=== PATIENT | male | born 1965 | race Caucasian/White ===

== ENCOUNTER 2018-01-19 03:07 | Outpatient (RCR) | payer BC, MEDICAID, SELFPAY ==
[2018-01-22] MEDS: Normal Saline Flush 10 ML SYR IVP (08:40)
[2018-01-22 08:54] LABS: Abs Immature Grans 0.01 k/cumm (0.0-0.09); Absolute Basophil Count 0.02 k/cumm (0.0-0.2); Absolute Eosinophil Count 0.16 k/cumm (0.0-0.7); Absolute Lymphocyte Count 1.08 k/cumm (1.2-3.4); Absolute Monocyte Count 0.43 k/cumm (0.11-0.7); Absolute Neutrophil Count 3.21 k/cumm (1.2-6.7); Basophils % 0.4; Eosinophils % 3.3; HCT 38.4 % (40.0-50.0); Immature Grans % 0.2; Mean Corp. HGB Concentration 33.9 g/dL (32.0-36.0); Mean Corpuscular Hemoglobin 28.7 pg (27.0-33.0); Mean Corpuscular Volume 84.8 fL (80-95); Monocytes % 8.8; Neutrophils % 65.3; Platelet Count 226 x1000/uL (130-400); RBC 4.53 m/cumm (4.50-6.00); RBC Distribution Width 20.4 % (11.8-14.1); White Blood Cell Count 4.91 k/cumm (4.4-10.8)
[2018-01-22 09:10] LABS: ALT 22 U/L (12-78); AST 15 U/L (15-37); Albumin 3.4 g/dL (3.4-5.0); Alkaline Phosphatase 112 U/L (46-116); Anion Gap 11.1 mmol/L (3-11); BUN 14 mg/dL (7-18); Bilirubin, Total 0.3 mg/dL (0.2-1.0); CO2 26.9 mmol/L (21.0-32.0); CREATININE 0.91 mg/dL (0.70-1.30); Calcium 8.5 mg/dL (8.5-10.1); Chloride 103 mmol/L (98-107); Glucose 114 mg/dL (70-100); Potassium 3.2 mmol/L (3.5-5.1); Sodium 141 mmol/L (136-145); Total Protein 6.7 g/dL (6.4-8.2)
[2018-02-12] MEDS: Normal Saline Flush 10 ML SYR IVP (07:00)
[2018-02-12 07:21] LABS: Abs Immature Grans 0.01 k/cumm (0.0-0.09); Absolute Basophil Count 0.01 k/cumm (0.0-0.2); Absolute Eosinophil Count 0.12 k/cumm (0.0-0.7); Absolute Lymphocyte Count 0.99 k/cumm (1.2-3.4); Absolute Monocyte Count 0.62 k/cumm (0.11-0.7); Absolute Neutrophil Count 3.08 k/cumm (1.2-6.7); Basophils % 0.2; Eosinophils % 2.5; HCT 36.9 % (40.0-50.0); HGB 12.3 g/dL (13.5-17.5); Immature Grans % 0.2; Lymphocytes % 20.5; Mean Corp. HGB Concentration 33.3 g/dL (32.0-36.0); Mean Corpuscular Hemoglobin 29.7 pg (27.0-33.0); Mean Corpuscular Volume 89.1 fL (80-95); Mean Platelet Volume 9.6 fL (8.0-11.0); Monocytes % 12.8; Neutrophils % 63.8; Platelet Count 253 x1000/uL (130-400); RBC 4.14 m/cumm (4.50-6.00); RBC Distribution Width 20.9 % (11.8-14.1); White Blood Cell Count 4.83 k/cumm (4.4-10.8)
[2018-02-12 07:33] LABS: ALT 27 U/L (12-78); AST 19 U/L (15-37); Albumin 3.3 g/dL (3.4-5.0); Alkaline Phosphatase 108 U/L (46-116); Anion Gap 5.3 mmol/L (3-11); BUN 23 mg/dL (7-18); Bilirubin, Total 0.2 mg/dL (0.2-1.0); CO2 26.7 mmol/L (21.0-32.0); CREATININE 0.98 mg/dL (0.70-1.30); Calcium 8.7 mg/dL (8.5-10.1); Chloride 107 mmol/L (98-107); Glucose 101 mg/dL (70-100); Potassium 4.5 mmol/L (3.5-5.1); Sodium 139 mmol/L (136-145)
[2018-02-12 10:20] LABS: T4 8.6 ug/dL (4.5-12.5); TSH 1.15 uIU/mL (0.358-3.74)
== END 2018-02-13 ==
LOC: INF 16:18
PROVIDERS: PCP Internal Medicine; Visit Provider Internal Medicine Medical Oncology
DX: C34.12 Malignant neoplasm of upper lobe, left bronchus or lung (principal); E03.2 Hypothyroidism due to medicaments and other exogenous substances; Z45.2 Encounter for adjustment and management of vascular access device
CPT/HCPCS: 36591; 80053; 84436; 84443; 85025

== ENCOUNTER 2018-03-02 01:15 | Outpatient (RCR) | payer MEDICAID, SELFPAY ==
[2018-03-02] MEDS: Normal Saline Flush 10 ML SYR IVP (07:15)
[2018-03-02 07:34] LABS: Abs Immature Grans 0.01 k/cumm (0.0-0.09); Absolute Basophil Count 0.04 k/cumm (0.0-0.2); Absolute Eosinophil Count 0.14 k/cumm (0.0-0.7); Absolute Lymphocyte Count 0.91 k/cumm (1.2-3.4); Absolute Monocyte Count 0.65 k/cumm (0.11-0.7); Absolute Neutrophil Count 4.97 k/cumm (1.2-6.7); Basophils % 0.6; Eosinophils % 2.1; Immature Grans % 0.1; Lymphocytes % 13.5; Mean Corp. HGB Concentration 33.3 g/dL (32.0-36.0); Mean Corpuscular Volume 90.1 fL (80-95); Mean Platelet Volume 10.2 fL (8.0-11.0); Monocytes % 9.7; Platelet Count 189 x1000/uL (130-400); RBC 4.33 m/cumm (4.50-6.00); RBC Distribution Width 19.9 % (11.8-14.1); White Blood Cell Count 6.72 k/cumm (4.4-10.8)
[2018-03-02 08:02] LABS: ALT 24 U/L (12-78); AST 22 U/L (15-37); Albumin 3.5 g/dL (3.4-5.0); Alkaline Phosphatase 123 U/L (46-116); Anion Gap 7.9 mmol/L (3-11); BUN 17 mg/dL (7-18); Bilirubin, Total 0.3 mg/dL (0.2-1.0); CO2 28.1 mmol/L (21.0-32.0); CREATININE 0.94 mg/dL (0.70-1.30); Calcium 9.1 mg/dL (8.5-10.1); Chloride 102 mmol/L (98-107); Glucose 96 mg/dL (70-100); Potassium 4.3 mmol/L (3.5-5.1); Sodium 138 mmol/L (136-145); TSH 1.82 uIU/mL (0.358-3.74); Total Protein 7.2 g/dL (6.4-8.2)
[2018-03-02 08:17] LABS: T4 9.8 ug/dL (4.5-12.5)
== END 2018-03-15 23:59 | disposition home or self-care (01) ==
LOC: INF 01:15
PROVIDERS: Referring Provider Internal Medicine Medical Oncology; Visit Provider Internal Medicine Medical Oncology
DX: C34.12 Malignant neoplasm of upper lobe, left bronchus or lung (principal); E03.2 Hypothyroidism due to medicaments and other exogenous substances; Z45.2 Encounter for adjustment and management of vascular access device
CPT/HCPCS: 36591; 80053; 84436; 84443; 85025

== ENCOUNTER 2018-04-13 01:25 | Outpatient (RCR) | payer MEDICAID, SELFPAY ==
[2018-03-30] MEDS: Normal Saline Flush 10 ML SYR IVP (07:25)
[2018-03-30 07:48] LABS: Abs Immature Grans 0.03 k/cumm (0.0-0.09); Absolute Basophil Count 0.04 k/cumm (0.0-0.2); Absolute Eosinophil Count 0.09 k/cumm (0.0-0.7); Absolute Lymphocyte Count 0.89 k/cumm (1.2-3.4); Absolute Monocyte Count 0.71 k/cumm (0.11-0.7); Basophils % 0.7; Eosinophils % 1.6; HCT 36.6 % (40.0-50.0); HGB 12.1 g/dL (13.5-17.5); Immature Grans % 0.5; Lymphocytes % 15.5; Mean Corp. HGB Concentration 33.1 g/dL (32.0-36.0); Mean Corpuscular Hemoglobin 32.5 pg (27.0-33.0); Mean Corpuscular Volume 98.4 fL (80-95); Monocytes % 12.3; Neutrophils % 69.4; Platelet Count 173 x1000/uL (130-400); RBC 3.72 m/cumm (4.50-6.00); RBC Distribution Width 19.5 % (11.8-14.1); White Blood Cell Count 5.76 k/cumm (4.4-10.8)
[2018-03-30 08:08] LABS: ALT 30 U/L (12-78); AST 26 U/L (15-37); Albumin 3.3 g/dL (3.4-5.0); Alkaline Phosphatase 105 U/L (46-116); Anion Gap 7.3 mmol/L (3-11); BUN 19 mg/dL (7-18); Bilirubin, Total 0.2 mg/dL (0.2-1.0); CO2 28.7 mmol/L (21.0-32.0); CREATININE 1.12 mg/dL (0.70-1.30); Calcium 8.4 mg/dL (8.5-10.1); Chloride 106 mmol/L (98-107); Glucose 97 mg/dL (70-100); Potassium 4.4 mmol/L (3.5-5.1); Sodium 142 mmol/L (136-145); T4 10.6 ug/dL (4.5-12.5); TSH 3.96 uIU/mL (0.358-3.74); Total Protein 6.6 g/dL (6.4-8.2)
[2018-04-13] MEDS: Normal Saline Flush 10 ML SYR IVP (07:55)
[2018-04-13 08:18] LABS: Absolute Eosinophil Count 0.12 k/cumm (0.0-0.7); Absolute Lymphocyte Count 0.96 k/cumm (1.2-3.4); Absolute Monocyte Count 0.47 k/cumm (0.11-0.7); Absolute Neutrophil Count 1.97 k/cumm (1.2-6.7); Eosinophils % 3.4; HCT 34.1 % (40.0-50.0); HGB 11.3 g/dL (13.5-17.5); Lymphocytes % 27.3; Mean Corp. HGB Concentration 33.1 g/dL (32.0-36.0); Mean Corpuscular Hemoglobin 33.2 pg (27.0-33.0); Mean Corpuscular Volume 100.3 fL (80-95); Mean Platelet Volume 10.8 fL (8.0-11.0); Monocytes % 13.4; Neutrophils % 55.9; White Blood Cell Count 3.52 k/cumm (4.4-10.8)
[2018-04-13 08:34] LABS: Anisocytosis 2+; Diff Comment Diff Reviewed; Platelet Count 81 x1000/uL (130-400)
[2018-04-13 08:40] LABS: ALT 47 U/L (12-78); AST 28 U/L (15-37); Albumin 3.3 g/dL (3.4-5.0); Alkaline Phosphatase 110 U/L (46-116); Anion Gap 7.7 mmol/L (3-11); BUN 17 mg/dL (7-18); Bilirubin, Total 0.2 mg/dL (0.2-1.0); CO2 29.3 mmol/L (21.0-32.0); CREATININE 0.97 mg/dL (0.70-1.30); Calcium 8.8 mg/dL (8.5-10.1); Chloride 105 mmol/L (98-107); Glucose 98 mg/dL (70-100); Potassium 4.2 mmol/L (3.5-5.1); Sodium 142 mmol/L (136-145); T4 9.3 ug/dL (4.5-12.5); TSH 2.81 uIU/mL (0.358-3.74); Total Protein 6.8 g/dL (6.4-8.2)
== END 2018-04-15 23:59 | disposition home or self-care (01) ==
LOC: INF 01:25
PROVIDERS: PCP Internal Medicine; Visit Provider Internal Medicine Medical Oncology
DX: C34.12 Malignant neoplasm of upper lobe, left bronchus or lung (principal); E03.2 Hypothyroidism due to medicaments and other exogenous substances; Z45.2 Encounter for adjustment and management of vascular access device
CPT/HCPCS: 36591; 80053; 84436; 84443; 85025

== ENCOUNTER 2018-05-11 01:37 | Outpatient (RCR) | payer MEDICAID, SELFPAY ==
[2018-05-11] MEDS: Normal Saline Flush 10 ML SYR IVP (08:05)
[2018-05-11 08:27] LABS: Abs Immature Grans 0.02 k/cumm (0.0-0.09); Absolute Basophil Count 0.05 k/cumm (0.0-0.2); Absolute Eosinophil Count 0.12 k/cumm (0.0-0.7); Absolute Lymphocyte Count 1.06 k/cumm (1.2-3.4); Absolute Neutrophil Count 4.17 k/cumm (1.2-6.7); Basophils % 0.8; HCT 37.8 % (40.0-50.0); HGB 13.2 g/dL (13.5-17.5); Immature Grans % 0.3; Lymphocytes % 17.6; Mean Corp. HGB Concentration 34.9 g/dL (32.0-36.0); Mean Corpuscular Hemoglobin 35.1 pg (27.0-33.0); Mean Corpuscular Volume 100.5 fL (80-95); Mean Platelet Volume 10.8 fL (8.0-11.0); Neutrophils % 69.3; Platelet Count 170 x1000/uL (130-400); RBC 3.76 m/cumm (4.50-6.00); RBC Distribution Width 14.9 % (11.8-14.1); White Blood Cell Count 6.02 k/cumm (4.4-10.8)
[2018-05-11 08:49] LABS: ALT 75 U/L (12-78); AST 37 U/L (15-37); Albumin 3.7 g/dL (3.4-5.0); Alkaline Phosphatase 122 U/L (46-116); Anion Gap 9.1 mmol/L (3-11); BUN 24 mg/dL (7-18); Bilirubin, Total 0.3 mg/dL (0.2-1.0); CO2 26.9 mmol/L (21.0-32.0); CREATININE 1.13 mg/dL (0.70-1.30); Calcium 9.3 mg/dL (8.5-10.1); Chloride 104 mmol/L (98-107); Glucose 94 mg/dL (70-100); Potassium 4.6 mmol/L (3.5-5.1); Sodium 140 mmol/L (136-145); TSH 2.63 uIU/mL (0.358-3.74); Total Protein 7.4 g/dL (6.4-8.2)
[2018-05-11 09:05] LABS: T4 9.7 ug/dL (4.5-12.5)
== END 2018-05-15 23:59 | disposition home or self-care (01) ==
LOC: INF 01:37
PROVIDERS: PCP Internal Medicine; Visit Provider Internal Medicine Medical Oncology
DX: C34.12 Malignant neoplasm of upper lobe, left bronchus or lung (principal); E03.2 Hypothyroidism due to medicaments and other exogenous substances; Z45.2 Encounter for adjustment and management of vascular access device
CPT/HCPCS: 36591; 80053; 84436; 84443; 85025

== ENCOUNTER 2018-07-13 01:14 | Outpatient (RCR) | payer MEDICAID, SELFPAY ==
[2018-06-22] MEDS: Normal Saline Flush 10 ML SYR IVP (07:41)
[2018-06-22 07:50] LABS: Abs Immature Grans 0.02 k/cumm (0.0-0.09); Absolute Basophil Count 0.04 k/cumm (0.0-0.2); Absolute Eosinophil Count 0.14 k/cumm (0.0-0.7); Absolute Lymphocyte Count 0.84 k/cumm (1.2-3.4); Absolute Monocyte Count 0.78 k/cumm (0.11-0.7); Basophils % 0.5; Eosinophils % 1.8; HCT 37.6 % (40.0-50.0); HGB 12.5 g/dL (13.5-17.5); Immature Grans % 0.3; Lymphocytes % 10.7; Mean Corp. HGB Concentration 33.2 g/dL (32.0-36.0); Mean Corpuscular Hemoglobin 33.7 pg (27.0-33.0); Mean Corpuscular Volume 101.3 fL (80-95); Mean Platelet Volume 11.1 fL (8.0-11.0); Neutrophils % 76.7; Platelet Count 171 x1000/uL (130-400); RBC 3.71 m/cumm (4.50-6.00); RBC Distribution Width 14.1 % (11.8-14.1); White Blood Cell Count 7.82 k/cumm (4.4-10.8)
[2018-06-22 08:05] LABS: ALT 40 U/L (12-78); AST 28 U/L (15-37); Albumin 3.6 g/dL (3.4-5.0); Alkaline Phosphatase 145 U/L (46-116); Anion Gap 10.2 mmol/L (3-11); BUN 22 mg/dL (7-18); Bilirubin, Total 0.4 mg/dL (0.2-1.0); CO2 25.8 mmol/L (21.0-32.0); CREATININE 1.41 mg/dL (0.70-1.30); Calcium 9.2 mg/dL (8.5-10.1); Chloride 105 mmol/L (98-107); Estimated GFR 52.19 (mL/min/1.73m2); Glucose 110 mg/dL (70-100); Potassium 4.2 mmol/L (3.5-5.1); Sodium 141 mmol/L (136-145); Total Protein 7.6 g/dL (6.4-8.2)
[2018-07-13] MEDS: Normal Saline Flush 10 ML SYR IVP (10:32)
[2018-07-13 10:50] LABS: Abs Immature Grans 0.01 k/cumm (0.0-0.09); Absolute Basophil Count 0.03 k/cumm (0.0-0.2); Absolute Eosinophil Count 0.13 k/cumm (0.0-0.7); Absolute Lymphocyte Count 1.21 k/cumm (1.2-3.4); Absolute Neutrophil Count 4.59 k/cumm (1.2-6.7); Basophils % 0.5; HCT 39.1 % (40.0-50.0); Immature Grans % 0.2; Mean Corp. HGB Concentration 33.2 g/dL (32.0-36.0); Mean Corpuscular Hemoglobin 32.8 pg (27.0-33.0); Mean Corpuscular Volume 98.7 fL (80-95); Mean Platelet Volume 10.9 fL (8.0-11.0); Monocytes % 6.3; Platelet Count 174 x1000/uL (130-400); RBC 3.96 m/cumm (4.50-6.00); RBC Distribution Width 12.8 % (11.8-14.1); White Blood Cell Count 6.37 k/cumm (4.4-10.8)
[2018-07-13 10:59] LABS: ALT 18 U/L (12-78); AST 20 U/L (15-37); Albumin 3.6 g/dL (3.4-5.0); Alkaline Phosphatase 139 U/L (46-116); Anion Gap 12.6 mmol/L (3-11); BUN 24 mg/dL (7-18); Bilirubin, Total 0.3 mg/dL (0.2-1.0); CO2 25.4 mmol/L (21.0-32.0); CREATININE 1.43 mg/dL (0.70-1.30); Calcium 9.2 mg/dL (8.5-10.1); Chloride 102 mmol/L (98-107); Estimated GFR 51.34 (mL/min/1.73m2); Glucose 164 mg/dL (70-100); Potassium 3.7 mmol/L (3.5-5.1); Sodium 140 mmol/L (136-145); Total Protein 7.6 g/dL (6.4-8.2)
[2018-07-13 12:39] LABS: T4 10.2 ug/dL (4.5-12.5); TSH 1.53 uIU/mL (0.358-3.74)
== END 2018-07-16 23:59 | disposition home or self-care (01) ==
LOC: INF 01:14
PROVIDERS: PCP Internal Medicine; Visit Provider Nurse Practitioner Adult Health
DX: C34.12 Malignant neoplasm of upper lobe, left bronchus or lung (principal); Z45.2 Encounter for adjustment and management of vascular access device
CPT/HCPCS: 36591; 80053; 84436; 84443; 85025

== ENCOUNTER 2018-08-03 01:31 | Outpatient (RCR) | payer MEDICAID, SELFPAY ==
[2018-08-03] MEDS: Normal Saline Flush 10 ML SYR IVP (08:13)
[2018-08-03 08:31] LABS: Abs Immature Grans 0.02 k/cumm (0.0-0.09); Absolute Basophil Count 0.02 k/cumm (0.0-0.2); Absolute Eosinophil Count 0.11 k/cumm (0.0-0.7); Absolute Lymphocyte Count 1.01 k/cumm (1.2-3.4); Absolute Monocyte Count 0.47 k/cumm (0.11-0.7); Absolute Neutrophil Count 4.62 k/cumm (1.2-6.7); Basophils % 0.3; Eosinophils % 1.8; HCT 40.6 % (40.0-50.0); HGB 13.3 g/dL (13.5-17.5); Immature Grans % 0.3; Lymphocytes % 16.2; Mean Corp. HGB Concentration 32.8 g/dL (32.0-36.0); Mean Corpuscular Volume 97.6 fL (80-95); Monocytes % 7.5; Neutrophils % 73.9; Platelet Count 163 x1000/uL (130-400); RBC 4.16 m/cumm (4.50-6.00); RBC Distribution Width 12.7 % (11.8-14.1); White Blood Cell Count 6.25 k/cumm (4.4-10.8)
[2018-08-03 08:51] LABS: ALT 24 U/L (12-78); AST 22 U/L (15-37); Albumin 3.6 g/dL (3.4-5.0); Alkaline Phosphatase 144 U/L (46-116); Anion Gap 9.2 mmol/L (3-11); BUN 24 mg/dL (7-18); Bilirubin, Total 0.3 mg/dL (0.2-1.0); CO2 27.8 mmol/L (21.0-32.0); CREATININE 1.35 mg/dL (0.70-1.30); Calcium 9.5 mg/dL (8.5-10.1); Chloride 102 mmol/L (98-107); Estimated GFR 54.87 (mL/min/1.73m2); Glucose 102 mg/dL (70-100); Potassium 4.6 mmol/L (3.5-5.1); Sodium 139 mmol/L (136-145); T4 10.1 ug/dL (4.5-12.5); TSH 1.41 uIU/mL (0.358-3.74); Total Protein 7.9 g/dL (6.4-8.2)
== END 2018-08-13 23:59 | disposition home or self-care (01) ==
LOC: INF 01:31
PROVIDERS: Nurse Practitioner Adult Health; PCP Internal Medicine; Visit Provider Internal Medicine Hematology & Oncology
DX: C34.12 Malignant neoplasm of upper lobe, left bronchus or lung (principal); E03.2 Hypothyroidism due to medicaments and other exogenous substances; Z45.2 Encounter for adjustment and management of vascular access device
CPT/HCPCS: 36591; 80053; 84436; 84443; 85025

== ENCOUNTER 2018-08-20 02:03 | Outpatient (RCR) | payer MEDICAID, SELFPAY | END 2018-09-13 23:59 | disposition home or self-care (01) | LOC: INF 02:03 | PROVIDERS: PCP Internal Medicine; Visit Provider Nurse Practitioner Adult Health | DX: R69 Illness, unspecified (principal) ==

== ENCOUNTER 2018-10-13 07:34 | Outpatient (RCR) | payer MEDICAID, SELFPAY ==
[2018-10-13] MEDS: Normal Saline Flush 10 ML SYR IVP (07:35)
[2018-10-13 07:58] LABS: Abs Immature Grans 0.02 k/cumm (0.0-0.09); Absolute Basophil Count 0.06 k/cumm (0.0-0.2); Absolute Eosinophil Count 0.04 k/cumm (0.0-0.7); Basophils % 0.9; Eosinophils % 0.6; HCT 36.8 % (40.0-50.0); HGB 11.9 g/dL (13.5-17.5); Immature Grans % 0.3; Lymphocytes % 15.7; Mean Corp. HGB Concentration 32.3 g/dL (32.0-36.0); Mean Corpuscular Hemoglobin 29.2 pg (27.0-33.0); Mean Corpuscular Volume 90.4 fL (80-95); Mean Platelet Volume 10.3 fL (8.0-11.0); Monocytes % 8.5; Platelet Count 248 x1000/uL (130-400); RBC 4.07 m/cumm (4.50-6.00); RBC Distribution Width 13.5 % (11.8-14.1); White Blood Cell Count 7.02 k/cumm (4.4-10.8)
[2018-10-13 08:18] LABS: ALT 15 U/L (12-78); AST 12 U/L (15-37); Albumin 2.9 g/dL (3.4-5.0); Alkaline Phosphatase 115 U/L (46-116); Anion Gap 9.3 mmol/L (3-11); BUN 23 mg/dL (7-18); Bilirubin, Total 0.4 mg/dL (0.2-1.0); CO2 27.7 mmol/L (21.0-32.0); CREATININE 1.24 mg/dL (0.70-1.30); Calcium 9.1 mg/dL (8.5-10.1); Chloride 99 mmol/L (98-107); Glucose 113 mg/dL (70-100); Potassium 4.2 mmol/L (3.5-5.1); Sodium 136 mmol/L (136-145); T4 10.2 ug/dL (4.5-12.5); TSH 1.77 uIU/mL (0.358-3.74); Total Protein 7.5 g/dL (6.4-8.2)
== END 2018-10-13 23:59 | disposition home or self-care (01) ==
LOC: INF 07:34
PROVIDERS: PCP Internal Medicine; Visit Provider Nurse Practitioner Adult Health
DX: C34.12 Malignant neoplasm of upper lobe, left bronchus or lung (principal); E03.2 Hypothyroidism due to medicaments and other exogenous substances; Z45.2 Encounter for adjustment and management of vascular access device
CPT/HCPCS: 36591; 80053; 84436; 84443; 85025

== ENCOUNTER 2018-11-26 01:57 | Outpatient (RCR) | payer MEDICAID, SELFPAY ==
[2018-11-26] MEDS: Normal Saline Flush 10 ML SYR IVP (07:25)
[2018-11-26 07:28] LABS: Abs Immature Grans 0.03 k/cumm (0.0-0.09); Absolute Basophil Count 0.04 k/cumm (0.0-0.2); Absolute Eosinophil Count 0.05 k/cumm (0.0-0.7); Absolute Lymphocyte Count 1.24 k/cumm (1.2-3.4); Absolute Monocyte Count 0.54 k/cumm (0.11-0.7); Absolute Neutrophil Count 5.39 k/cumm (1.2-6.7); Basophils % 0.5; Eosinophils % 0.7; HCT 37.7 % (40.0-50.0); HGB 12.3 g/dL (13.5-17.5); Immature Grans % 0.4; Mean Corp. HGB Concentration 32.6 g/dL (32.0-36.0); Mean Corpuscular Hemoglobin 29.8 pg (27.0-33.0); Mean Corpuscular Volume 91.3 fL (80-95); Mean Platelet Volume 9.9 fL (8.0-11.0); Monocytes % 7.4; Platelet Count 202 x1000/uL (130-400); RBC 4.13 m/cumm (4.50-6.00); RBC Distribution Width 15.8 % (11.8-14.1); White Blood Cell Count 7.29 k/cumm (4.4-10.8)
[2018-11-26 07:42] LABS: ALT 17 U/L (12-78); AST 12 U/L (15-37); Albumin 3.2 g/dL (3.4-5.0); Alkaline Phosphatase 132 U/L (46-116); Anion Gap 9.8 mmol/L (3-11); BUN 17 mg/dL (7-18); Bilirubin, Total 0.3 mg/dL (0.2-1.0); CO2 27.2 mmol/L (21.0-32.0); CREATININE 1.25 mg/dL (0.70-1.30); Chloride 104 mmol/L (98-107); Estimated GFR 59.97 (mL/min/1.73m2); Glucose 109 mg/dL (70-100); Potassium 3.8 mmol/L (3.5-5.1); Sodium 141 mmol/L (136-145); Total Protein 6.9 g/dL (6.4-8.2)
== END 2018-12-13 23:59 | disposition home or self-care (01) ==
LOC: INF 01:57
PROVIDERS: PCP Internal Medicine; Visit Provider Nurse Practitioner Adult Health
DX: C34.12 Malignant neoplasm of upper lobe, left bronchus or lung (principal); E03.2 Hypothyroidism due to medicaments and other exogenous substances; Z45.2 Encounter for adjustment and management of vascular access device
CPT/HCPCS: 36591; 80053; 85025

== ENCOUNTER 2018-12-24 01:20 | Outpatient (RCR) | payer MEDICAID, SELFPAY | END 2019-01-13 23:59 | disposition home or self-care (01) | LOC: INF 01:20 | PROVIDERS: PCP Internal Medicine; Visit Provider Nurse Practitioner Adult Health | DX: R69 Illness, unspecified (principal) ==

== ENCOUNTER 2019-03-01 01:13 | Outpatient (RCR) | payer MEDICAID, SELFPAY ==
[2019-03-01 08:19] LABS: Abs Immature Grans 0.01 k/cumm (0.0-0.09); Absolute Basophil Count 0.04 k/cumm (0.0-0.2); Absolute Eosinophil Count 0.09 k/cumm (0.0-0.7); Absolute Lymphocyte Count 1.04 k/cumm (1.2-3.4); Absolute Monocyte Count 0.41 k/cumm (0.11-0.7); Absolute Neutrophil Count 3.91 k/cumm (1.2-6.7); Basophils % 0.7; Eosinophils % 1.6; HCT 39.7 % (40.0-50.0); HGB 13.1 g/dL (13.5-17.5); Immature Grans % 0.2; Lymphocytes % 18.9; Mean Corpuscular Hemoglobin 29.1 pg (27.0-33.0); Mean Corpuscular Volume 88.2 fL (80-95); Mean Platelet Volume 10.2 fL (8.0-11.0); Monocytes % 7.5; Neutrophils % 71.1; Platelet Count 208 x1000/uL (130-400); RBC Distribution Width 17.2 % (11.8-14.1)
[2019-03-01 08:37] LABS: ALT 17 U/L (16-63); AST 11 U/L (15-37); Albumin 3.6 g/dL (3.4-5.0); Alkaline Phosphatase 96 U/L (46-116); Anion Gap 10.2 mmol/L (3-11); BUN 24 mg/dL (7-18); Bilirubin, Total 0.3 mg/dL (0.2-1.0); CO2 24.8 mmol/L (21.0-32.0); CREATININE 1.19 mg/dL (0.70-1.30); Calcium 8.7 mg/dL (8.5-10.1); Chloride 106 mmol/L (98-107); Glucose 96 mg/dL (70-100); LDH 110 U/L (85-227); Potassium 4.2 mmol/L (3.5-5.1); Sodium 141 mmol/L (136-145); Total Protein 7.1 g/dL (6.4-8.2)
[2019-03-01] MEDS: Normal Saline Flush 10 ML SYR 30 ML IVP (11:26)
== END 2019-03-15 23:59 | disposition home or self-care (01) ==
LOC: INF 01:13
PROVIDERS: PCP Internal Medicine; Visit Provider Internal Medicine Hematology & Oncology
DX: C34.90 Malignant neoplasm of unspecified part of unspecified bronchus or lung (principal); Z45.2 Encounter for adjustment and management of vascular access device
CPT/HCPCS: 36591; 80053; 83615; 85025

== ENCOUNTER 2019-04-12 01:59 | Outpatient (RCR) | payer MEDICAID, SELFPAY ==
[2019-03-29] MEDS: Normal Saline Flush 10 ML SYR IVP (07:15)
[2019-03-29 07:29] LABS: Abs Immature Grans 0.06 k/cumm (0.0-0.09); Absolute Basophil Count 0.02 k/cumm (0.0-0.2); Absolute Eosinophil Count 0.07 k/cumm (0.0-0.7); Absolute Lymphocyte Count 1.41 k/cumm (1.2-3.4); Absolute Monocyte Count 0.68 k/cumm (0.11-0.7); Absolute Neutrophil Count 8.56 k/cumm (1.2-6.7); Basophils % 0.2; Eosinophils % 0.6; HCT 37.3 % (40.0-50.0); HGB 12.3 g/dL (13.5-17.5); Immature Grans % 0.6; Lymphocytes % 13.1; Mean Corpuscular Hemoglobin 29.7 pg (27.0-33.0); Mean Corpuscular Volume 90.1 fL (80-95); Mean Platelet Volume 10.6 fL (8.0-11.0); Monocytes % 6.3; Neutrophils % 79.2; Platelet Count 220 x1000/uL (130-400); RBC 4.14 m/cumm (4.50-6.00); RBC Distribution Width 18.1 % (11.8-14.1)
[2019-03-29 07:43] LABS: ALT 17 U/L (16-63); AST 9 U/L (15-37); Albumin 3.4 g/dL (3.4-5.0); Alkaline Phosphatase 91 U/L (46-116); Anion Gap 10.1 mmol/L (3-11); BUN 29 mg/dL (7-18); Bilirubin, Total 0.2 mg/dL (0.2-1.0); CO2 25.9 mmol/L (21.0-32.0); CREATININE 1.21 mg/dL (0.70-1.30); Calcium 8.4 mg/dL (8.5-10.1); Chloride 104 mmol/L (98-107); Glucose 107 mg/dL (70-100); LDH 112 U/L (85-227); Potassium 4.2 mmol/L (3.5-5.1); Sodium 140 mmol/L (136-145); Total Protein 6.7 g/dL (6.4-8.2)
[2019-04-12] MEDS: Normal Saline Flush 10 ML SYR IVP (08:26)
[2019-04-12 08:44] LABS: Abs Immature Grans 0.01 k/cumm (0.0-0.09); Absolute Basophil Count 0.05 k/cumm (0.0-0.2); Absolute Eosinophil Count 0.07 k/cumm (0.0-0.7); Absolute Lymphocyte Count 0.96 k/cumm (1.2-3.4); Absolute Monocyte Count 0.46 k/cumm (0.11-0.7); Absolute Neutrophil Count 3.74 k/cumm (1.2-6.7); Basophils % 0.9; Eosinophils % 1.3; HCT 37.9 % (40.0-50.0); HGB 12.4 g/dL (13.5-17.5); Immature Grans % 0.2; Lymphocytes % 18.1; Mean Corp. HGB Concentration 32.7 g/dL (32.0-36.0); Mean Corpuscular Hemoglobin 29.9 pg (27.0-33.0); Mean Corpuscular Volume 91.3 fL (80-95); Mean Platelet Volume 10.4 fL (8.0-11.0); Monocytes % 8.7; Neutrophils % 70.8; Platelet Count 200 x1000/uL (130-400); RBC 4.15 m/cumm (4.50-6.00); White Blood Cell Count 5.29 k/cumm (4.4-10.8)
[2019-04-12 09:01] LABS: ALT 26 U/L (16-63); AST 16 U/L (15-37); Albumin 3.3 g/dL (3.4-5.0); Alkaline Phosphatase 104 U/L (46-116); Anion Gap 7.5 mmol/L (3-11); BUN 13 mg/dL (7-18); Bilirubin, Total 0.2 mg/dL (0.2-1.0); CO2 27.5 mmol/L (21.0-32.0); CREATININE 1.05 mg/dL (0.70-1.30); Calcium 8.5 mg/dL (8.5-10.1); Chloride 107 mmol/L (98-107); Glucose 102 mg/dL (70-100); LDH 130 U/L (85-227); Potassium 4.1 mmol/L (3.5-5.1); Sodium 142 mmol/L (136-145); Total Protein 6.7 g/dL (6.4-8.2)
== END 2019-04-15 23:59 | disposition home or self-care (01) ==
LOC: INF 01:59
PROVIDERS: PCP Internal Medicine; Visit Provider Internal Medicine Hematology & Oncology
DX: C34.90 Malignant neoplasm of unspecified part of unspecified bronchus or lung (principal); Z45.2 Encounter for adjustment and management of vascular access device
CPT/HCPCS: 36591; 80053; 83615; 85025

== ENCOUNTER 2019-05-10 02:50 | Outpatient (RCR) | payer MEDICAID, SELFPAY ==
[2019-04-20] MEDS: Normal Saline Flush 10 ML SYR IVP (07:20)
[2019-04-20 07:47] LABS: Abs Immature Grans 0.11 k/cumm (0.0-0.09); Absolute Basophil Count 0.03 k/cumm (0.0-0.2); Absolute Eosinophil Count 0.08 k/cumm (0.0-0.7); Absolute Lymphocyte Count 1.02 k/cumm (1.2-3.4); Absolute Monocyte Count 0.57 k/cumm (0.11-0.7); Absolute Neutrophil Count 5.96 k/cumm (1.2-6.7); Basophils % 0.4; HCT 37.9 % (40.0-50.0); HGB 12.5 g/dL (13.5-17.5); Immature Grans % 1.4; Lymphocytes % 13.1; Mean Corpuscular Hemoglobin 30.3 pg (27.0-33.0); Mean Corpuscular Volume 91.8 fL (80-95); Mean Platelet Volume 10.6 fL (8.0-11.0); Monocytes % 7.3; Neutrophils % 76.8; Platelet Count 230 x1000/uL (130-400); RBC 4.13 m/cumm (4.50-6.00); RBC Distribution Width 18.7 % (11.8-14.1); White Blood Cell Count 7.77 k/cumm (4.4-10.8)
[2019-04-20 08:06] LABS: ALT 28 U/L (16-63); AST 17 U/L (15-37); Albumin 3.2 g/dL (3.4-5.0); Alkaline Phosphatase 96 U/L (46-116); Anion Gap 7.1 mmol/L (3-11); BUN 21 mg/dL (7-18); Bilirubin, Total 0.4 mg/dL (0.2-1.0); CO2 27.9 mmol/L (21.0-32.0); CREATININE 0.94 mg/dL (0.70-1.30); Calcium 8.5 mg/dL (8.5-10.1); Chloride 105 mmol/L (98-107); Glucose 104 mg/dL (70-100); LDH 143 U/L (85-227); Potassium 4.3 mmol/L (3.5-5.1); Sodium 140 mmol/L (136-145); Total Protein 6.4 g/dL (6.4-8.2)
[2019-05-03 08:42] LABS: Abs Immature Grans 0.01 k/cumm (0.0-0.09); Absolute Basophil Count 0.03 k/cumm (0.0-0.2); Absolute Eosinophil Count 0.05 k/cumm (0.0-0.7); Absolute Lymphocyte Count 1.03 k/cumm (1.2-3.4); Absolute Monocyte Count 0.42 k/cumm (0.11-0.7); Basophils % 0.5; Eosinophils % 0.9; HCT 39.5 % (40.0-50.0); HGB 12.9 g/dL (13.5-17.5); Immature Grans % 0.2; Lymphocytes % 17.9; Mean Corp. HGB Concentration 32.7 g/dL (32.0-36.0); Mean Corpuscular Hemoglobin 30.2 pg (27.0-33.0); Mean Corpuscular Volume 92.5 fL (80-95); Mean Platelet Volume 10.1 fL (8.0-11.0); Monocytes % 7.3; Neutrophils % 73.2; Platelet Count 208 x1000/uL (130-400); RBC 4.27 m/cumm (4.50-6.00); RBC Distribution Width 16.6 % (11.8-14.1); White Blood Cell Count 5.74 k/cumm (4.4-10.8)
[2019-05-03] MEDS: Normal Saline Flush 10 ML SYR IVP (08:46)
[2019-05-03 08:53] LABS: ALT 24 U/L (16-63); AST 15 U/L (15-37); Albumin 3.5 g/dL (3.4-5.0); Alkaline Phosphatase 109 U/L (46-116); Anion Gap 4.9 mmol/L (3-11); BUN 18 mg/dL (7-18); Bilirubin, Total 0.3 mg/dL (0.2-1.0); CO2 29.1 mmol/L (21.0-32.0); CREATININE 1.07 mg/dL (0.70-1.30); Calcium 8.7 mg/dL (8.5-10.1); Chloride 106 mmol/L (98-107); Glucose 93 mg/dL (70-100); LDH 125 U/L (85-227); Sodium 140 mmol/L (136-145); Total Protein 6.8 g/dL (6.4-8.2)
[2019-05-10] MEDS: Normal Saline Flush 10 ML SYR IVP (08:30)
[2019-05-10 08:48] LABS: Abs Immature Grans 0.03 k/cumm (0.0-0.09); Absolute Basophil Count 0.03 k/cumm (0.0-0.2); Absolute Eosinophil Count 0.07 k/cumm (0.0-0.7); Absolute Lymphocyte Count 0.79 k/cumm (1.2-3.4); Absolute Monocyte Count 0.42 k/cumm (0.11-0.7); Absolute Neutrophil Count 3.94 k/cumm (1.2-6.7); Basophils % 0.6; Eosinophils % 1.3; HCT 38.5 % (40.0-50.0); HGB 12.5 g/dL (13.5-17.5); Immature Grans % 0.6; Mean Corp. HGB Concentration 32.5 g/dL (32.0-36.0); Mean Corpuscular Hemoglobin 30.3 pg (27.0-33.0); Mean Corpuscular Volume 93.4 fL (80-95); Mean Platelet Volume 10.6 fL (8.0-11.0); Neutrophils % 74.5; Platelet Count 214 x1000/uL (130-400); RBC 4.12 m/cumm (4.50-6.00); RBC Distribution Width 16.4 % (11.8-14.1); White Blood Cell Count 5.28 k/cumm (4.4-10.8)
[2019-05-10 09:03] LABS: ALT 18 U/L (16-63); AST 17 U/L (15-37); Albumin 3.4 g/dL (3.4-5.0); Alkaline Phosphatase 100 U/L (46-116); Anion Gap 10.4 mmol/L (3-11); BUN 17 mg/dL (7-18); Bilirubin, Total 0.3 mg/dL (0.2-1.0); CO2 25.6 mmol/L (21.0-32.0); Calcium 8.8 mg/dL (8.5-10.1); Chloride 103 mmol/L (98-107); Glucose 89 mg/dL (74-106); Potassium 4.3 mmol/L (3.5-5.1); Sodium 139 mmol/L (136-145); Total Protein 6.7 g/dL (6.4-8.2)
== END 2019-05-15 23:59 | disposition home or self-care (01) ==
LOC: INF 02:50
PROVIDERS: PCP Internal Medicine; Visit Provider Internal Medicine Hematology & Oncology
DX: C34.90 Malignant neoplasm of unspecified part of unspecified bronchus or lung (principal); Z45.2 Encounter for adjustment and management of vascular access device
CPT/HCPCS: 36591; 80053; 83615; 85025

== ENCOUNTER 2019-06-14 01:07 | Outpatient (RCR) | payer MEDICAID, SELFPAY ==
[2019-05-24 09:32] LABS: Abs Immature Grans 0.01 k/cumm (0.0-0.09); Absolute Basophil Count 0.04 k/cumm (0.0-0.2); Absolute Eosinophil Count 0.04 k/cumm (0.0-0.7); Absolute Lymphocyte Count 0.93 k/cumm (1.2-3.4); Absolute Monocyte Count 0.73 k/cumm (0.11-0.7); Basophils % 0.6; Eosinophils % 0.6; HCT 38.1 % (40.0-50.0); HGB 12.4 g/dL (13.5-17.5); Immature Grans % 0.1; Lymphocytes % 13.6; Mean Corp. HGB Concentration 32.5 g/dL (32.0-36.0); Mean Corpuscular Volume 95.3 fL (80-95); Mean Platelet Volume 10.2 fL (8.0-11.0); Monocytes % 10.7; Neutrophils % 74.4; Platelet Count 177 x1000/uL (130-400); RBC Distribution Width 16.4 % (11.8-14.1); White Blood Cell Count 6.85 k/cumm (4.4-10.8)
[2019-05-24] MEDS: Normal Saline Flush 10 ML SYR IVP (09:49)
[2019-05-24 10:21] LABS: ALT 16 U/L (16-63); AST 13 U/L (15-37); Albumin 3.3 g/dL (3.4-5.0); Alkaline Phosphatase 89 U/L (46-116); Anion Gap 7.6 mmol/L (3-11); BUN 21 mg/dL (7-18); Bilirubin, Total 0.2 mg/dL (0.2-1.0); CO2 27.4 mmol/L (21.0-32.0); CREATININE 1.08 mg/dL (0.70-1.30); Calcium 8.5 mg/dL (8.5-10.1); Chloride 105 mmol/L (98-107); Glucose 93 mg/dL (74-106); Potassium 4.1 mmol/L (3.5-5.1); Sodium 140 mmol/L (136-145); Total Protein 6.5 g/dL (6.4-8.2)
[2019-05-24 10:32] LABS: LDH 126 U/L (85-227)
[2019-05-31 12:07] LABS: Abs Immature Grans 0.04 k/cumm (0.0-0.09); Absolute Basophil Count 0.04 k/cumm (0.0-0.2); Absolute Eosinophil Count 0.06 k/cumm (0.0-0.7); Absolute Lymphocyte Count 1.14 k/cumm (1.2-3.4); Absolute Monocyte Count 0.64 k/cumm (0.11-0.7); Absolute Neutrophil Count 5.81 k/cumm (1.2-6.7); Basophils % 0.5; Eosinophils % 0.8; HCT 39.2 % (40.0-50.0); HGB 13.2 g/dL (13.5-17.5); Immature Grans % 0.5; Lymphocytes % 14.7; Mean Corp. HGB Concentration 33.7 g/dL (32.0-36.0); Mean Corpuscular Hemoglobin 31.4 pg (27.0-33.0); Mean Corpuscular Volume 93.1 fL (80-95); Mean Platelet Volume 10.8 fL (8.0-11.0); Monocytes % 8.3; Neutrophils % 75.2; Platelet Count 207 x1000/uL (130-400); RBC 4.21 m/cumm (4.50-6.00); White Blood Cell Count 7.73 k/cumm (4.4-10.8)
[2019-05-31] MEDS: Normal Saline Flush 10 ML SYR IVP (12:15)
[2019-05-31 12:19] LABS: ALT 22 U/L (16-63); AST 16 U/L (15-37); Albumin 3.6 g/dL (3.4-5.0); Alkaline Phosphatase 97 U/L (46-116); Anion Gap 7.4 mmol/L (3-11); BUN 30 mg/dL (7-18); Bilirubin, Total 0.2 mg/dL (0.2-1.0); CO2 29.6 mmol/L (21.0-32.0); CREATININE 1.15 mg/dL (0.70-1.30); Calcium 8.8 mg/dL (8.5-10.1); Chloride 106 mmol/L (98-107); Glucose 94 mg/dL (74-106); Potassium 4.1 mmol/L (3.5-5.1); Sodium 143 mmol/L (136-145); Total Protein 6.9 g/dL (6.4-8.2)
[2019-06-14] MEDS: Normal Saline Flush 10 ML SYR IVP (08:57)
[2019-06-14 09:00] LABS: Abs Immature Grans 0.02 k/cumm (0.0-0.09); Absolute Basophil Count 0.03 k/cumm (0.0-0.2); Absolute Eosinophil Count 0.06 k/cumm (0.0-0.7); Absolute Lymphocyte Count 0.99 k/cumm (1.2-3.4); Absolute Monocyte Count 0.46 k/cumm (0.11-0.7); Absolute Neutrophil Count 4.67 k/cumm (1.2-6.7); Basophils % 0.5; HCT 41.2 % (40.0-50.0); HGB 13.7 g/dL (13.5-17.5); Immature Grans % 0.3; Lymphocytes % 15.9; Mean Corp. HGB Concentration 33.3 g/dL (32.0-36.0); Mean Corpuscular Hemoglobin 31.3 pg (27.0-33.0); Mean Corpuscular Volume 94.1 fL (80-95); Mean Platelet Volume 10.8 fL (8.0-11.0); Monocytes % 7.4; Neutrophils % 74.9; Platelet Count 217 x1000/uL (130-400); RBC 4.38 m/cumm (4.50-6.00); RBC Distribution Width 15.7 % (11.8-14.1); White Blood Cell Count 6.23 k/cumm (4.4-10.8)
[2019-06-14 09:18] LABS: ALT 19 U/L (16-63); AST 16 U/L (15-37); Albumin 3.6 g/dL (3.4-5.0); Alkaline Phosphatase 96 U/L (46-116); Anion Gap 8.5 mmol/L (3-11); BUN 20 mg/dL (7-18); Bilirubin, Total 0.4 mg/dL (0.2-1.0); CO2 29.5 mmol/L (21.0-32.0); CREATININE 1.03 mg/dL (0.70-1.30); Calcium 9.1 mg/dL (8.5-10.1); Chloride 106 mmol/L (98-107); Glucose 87 mg/dL (74-106); LDH 146 U/L (85-227); Potassium 4.7 mmol/L (3.5-5.1); Sodium 144 mmol/L (136-145)
== END 2019-06-15 23:59 | disposition home or self-care (01) ==
LOC: INF 01:07
PROVIDERS: PCP Internal Medicine; Visit Provider Internal Medicine Hematology & Oncology
DX: C34.90 Malignant neoplasm of unspecified part of unspecified bronchus or lung (principal); Z45.2 Encounter for adjustment and management of vascular access device
CPT/HCPCS: 36415; 36591; 80053; 96523; 83615; 85025

== ENCOUNTER 2019-07-12 01:53 | Outpatient (RCR) | payer MEDICAID, SELFPAY ==
[2019-06-21] MEDS: Normal Saline Flush 10 ML SYR IVP (08:35)
[2019-06-21 08:46] LABS: Abs Immature Grans 0.03 k/cumm (0.0-0.09); Absolute Basophil Count 0.04 k/cumm (0.0-0.2); Absolute Eosinophil Count 0.06 k/cumm (0.0-0.7); Absolute Lymphocyte Count 1.04 k/cumm (1.2-3.4); Absolute Neutrophil Count 5.13 k/cumm (1.2-6.7); Basophils % 0.6; Eosinophils % 0.9; HCT 40.6 % (40.0-50.0); HGB 13.5 g/dL (13.5-17.5); Immature Grans % 0.4 %; Lymphocytes % 15.3; Mean Corp. HGB Concentration 33.3 g/dL (32.0-36.0); Mean Corpuscular Hemoglobin 30.9 pg (27.0-33.0); Mean Corpuscular Volume 92.9 fL (80-95); Mean Platelet Volume 10.8 fL (8.0-11.0); Monocytes % 7.4; Neutrophils % 75.4; Platelet Count 211 x1000/uL (130-400); RBC 4.37 m/cumm (4.50-6.00); RBC Distribution Width 15.6 % (11.8-14.1)
[2019-06-21 09:00] LABS: ALT 16 U/L (16-63); AST 16 U/L (15-37); Albumin 3.6 g/dL (3.4-5.0); Alkaline Phosphatase 100 U/L (46-116); Anion Gap 8.9 mmol/L (3-11); BUN 16 mg/dL (7-18); Bilirubin, Total 0.5 mg/dL (0.2-1.0); CO2 28.1 mmol/L (21.0-32.0); CREATININE 0.93 mg/dL (0.70-1.30); Chloride 104 mmol/L (98-107); Glucose 112 mg/dL (74-106); Potassium 3.9 mmol/L (3.5-5.1); Sodium 141 mmol/L (136-145)
[2019-07-06 07:56] LABS: Abs Immature Grans 0.01 k/cumm (0.0-0.09); Absolute Basophil Count 0.06 k/cumm (0.0-0.2); Absolute Eosinophil Count 0.07 k/cumm (0.0-0.7); Absolute Lymphocyte Count 0.98 k/cumm (1.2-3.4); Absolute Monocyte Count 0.57 k/cumm (0.11-0.7); Absolute Neutrophil Count 3.51 k/cumm (1.2-6.7); Basophils % 1.2; Eosinophils % 1.3; HCT 39.7 % (40.0-50.0); Immature Grans % 0.2 %; Lymphocytes % 18.8; Mean Corp. HGB Concentration 32.7 g/dL (32.0-36.0); Mean Corpuscular Hemoglobin 30.9 pg (27.0-33.0); Mean Corpuscular Volume 94.3 fL (80-95); Mean Platelet Volume 10.5 fL (8.0-11.0); Neutrophils % 67.5; Platelet Count 204 x1000/uL (130-400); RBC 4.21 m/cumm (4.50-6.00); RBC Distribution Width 15.5 % (11.8-14.1)
[2019-07-06 08:09] LABS: ALT 14 U/L (16-63); AST 13 U/L (15-37); Albumin 3.2 g/dL (3.4-5.0); Alkaline Phosphatase 87 U/L (46-116); Anion Gap 6.4 mmol/L (3-11); BUN 19 mg/dL (7-18); Bilirubin, Total 0.2 mg/dL (0.2-1.0); CO2 27.6 mmol/L (21.0-32.0); CREATININE 0.94 mg/dL (0.70-1.30); Calcium 8.7 mg/dL (8.5-10.1); Chloride 108 mmol/L (98-107); Glucose 96 mg/dL (74-106); LDH 118 U/L (85-227); Potassium 4.1 mmol/L (3.5-5.1); Sodium 142 mmol/L (136-145); Total Protein 6.3 g/dL (6.4-8.2)
[2019-07-06] MEDS: Normal Saline Flush 10 ML SYR IVP (08:26)
[2019-07-12 08:44] LABS: Abs Immature Grans 0.01 k/cumm (0.0-0.09); Absolute Basophil Count 0.07 k/cumm (0.0-0.2); Absolute Eosinophil Count 0.13 k/cumm (0.0-0.7); Absolute Lymphocyte Count 1.02 k/cumm (1.2-3.4); Absolute Monocyte Count 0.53 k/cumm (0.11-0.7); Absolute Neutrophil Count 3.54 k/cumm (1.2-6.7); Basophils % 1.3; Eosinophils % 2.5; HCT 41.2 % (40.0-50.0); HGB 13.8 g/dL (13.5-17.5); Immature Grans % 0.2 %; Lymphocytes % 19.2; Mean Corp. HGB Concentration 33.5 g/dL (32.0-36.0); Mean Corpuscular Hemoglobin 31.2 pg (27.0-33.0); Mean Platelet Volume 10.6 fL (8.0-11.0); Neutrophils % 66.8; Platelet Count 205 x1000/uL (130-400); RBC 4.43 m/cumm (4.50-6.00); RBC Distribution Width 15.5 % (11.8-14.1)
[2019-07-12 08:56] LABS: ALT 18 U/L (16-63); AST 14 U/L (15-37); Albumin 3.6 g/dL (3.4-5.0); Alkaline Phosphatase 107 U/L (46-116); Anion Gap 7.6 mmol/L (3-11); BUN 24 mg/dL (7-18); Bilirubin, Total 0.3 mg/dL (0.2-1.0); CO2 27.4 mmol/L (21.0-32.0); CREATININE 1.07 mg/dL (0.70-1.30); Calcium 8.2 mg/dL (8.5-10.1); Chloride 104 mmol/L (98-107); Glucose 104 mg/dL (74-106); Potassium 4.5 mmol/L (3.5-5.1); Sodium 139 mmol/L (136-145); Total Protein 6.8 g/dL (6.4-8.2)
[2019-07-12] MEDS: Normal Saline Flush 10 ML SYR IVP (11:54)
== END 2019-07-16 23:59 | disposition home or self-care (01) ==
LOC: INF 01:53
PROVIDERS: PCP Internal Medicine; Visit Provider Internal Medicine Hematology & Oncology
DX: C34.90 Malignant neoplasm of unspecified part of unspecified bronchus or lung (principal); Z45.2 Encounter for adjustment and management of vascular access device
CPT/HCPCS: 36591; 80053; 83615; 85025

== ENCOUNTER 2019-08-09 01:28 | Outpatient (RCR) | payer MEDICAID, SELFPAY ==
[2019-07-20 08:14] LABS: Abs Immature Grans 0.03 k/cumm (0.0-0.09); Absolute Basophil Count 0.03 k/cumm (0.0-0.2); Absolute Eosinophil Count 0.16 k/cumm (0.0-0.7); Absolute Lymphocyte Count 0.92 k/cumm (1.2-3.4); Absolute Monocyte Count 0.54 k/cumm (0.11-0.7); Absolute Neutrophil Count 4.17 k/cumm (1.2-6.7); Basophils % 0.5; Eosinophils % 2.7; HCT 41.4 % (40.0-50.0); HGB 13.7 g/dL (13.5-17.5); Immature Grans % 0.5 %; Lymphocytes % 15.7; Mean Corp. HGB Concentration 33.1 g/dL (32.0-36.0); Mean Corpuscular Hemoglobin 30.6 pg (27.0-33.0); Mean Corpuscular Volume 92.6 fL (80-95); Mean Platelet Volume 10.6 fL (8.0-11.0); Monocytes % 9.2; Neutrophils % 71.4; Platelet Count 213 x1000/uL (130-400); RBC 4.47 m/cumm (4.50-6.00); RBC Distribution Width 15.6 % (11.8-14.1); White Blood Cell Count 5.85 k/cumm (4.4-10.8)
[2019-07-20] MEDS: Normal Saline Flush 10 ML SYR IVP (08:16)
[2019-07-20 08:22] LABS: ALT 22 U/L (16-63); AST 16 U/L (15-37); Albumin 3.4 g/dL (3.4-5.0); Alkaline Phosphatase 102 U/L (46-116); Anion Gap 6.6 mmol/L (3-11); BUN 25 mg/dL (7-18); Bilirubin, Total 0.3 mg/dL (0.2-1.0); CO2 27.4 mmol/L (21.0-32.0); Calcium 8.5 mg/dL (8.5-10.1); Chloride 105 mmol/L (98-107); Glucose 93 mg/dL (74-106); LDH 122 U/L (85-227); Potassium 4.6 mmol/L (3.5-5.1); Sodium 139 mmol/L (136-145); Total Protein 6.5 g/dL (6.4-8.2)
[2019-08-02] MEDS: Normal Saline Flush 10 ML SYR IVP (09:00)
[2019-08-02 09:37] LABS: Abs Immature Grans 0.01 k/cumm (0.0-0.09); Absolute Basophil Count 0.06 k/cumm (0.0-0.2); Absolute Eosinophil Count 0.08 k/cumm (0.0-0.7); Absolute Lymphocyte Count 0.97 k/cumm (1.2-3.4); Absolute Monocyte Count 0.61 k/cumm (0.11-0.7); Absolute Neutrophil Count 3.73 k/cumm (1.2-6.7); Basophils % 1.1; Eosinophils % 1.5; HCT 40.2 % (40.0-50.0); HGB 13.3 g/dL (13.5-17.5); Immature Grans % 0.2 %; Lymphocytes % 17.8; Mean Corp. HGB Concentration 33.1 g/dL (32.0-36.0); Mean Corpuscular Hemoglobin 30.8 pg (27.0-33.0); Mean Corpuscular Volume 93.1 fL (80-95); Mean Platelet Volume 10.1 fL (8.0-11.0); Monocytes % 11.2; Neutrophils % 68.2; Platelet Count 226 x1000/uL (130-400); RBC 4.32 m/cumm (4.50-6.00); RBC Distribution Width 15.3 % (11.8-14.1); White Blood Cell Count 5.46 k/cumm (4.4-10.8)
[2019-08-02 09:44] LABS: ALT 15 U/L (16-63); AST 13 U/L (15-37); Albumin 3.3 g/dL (3.4-5.0); Alkaline Phosphatase 97 U/L (46-116); BUN 22 mg/dL (7-18); Bilirubin, Total 0.1 mg/dL (0.2-1.0); Calcium 8.3 mg/dL (8.5-10.1); Chloride 106 mmol/L (98-107); Glucose 92 mg/dL (74-106); LDH 108 U/L (85-227); Potassium 4.3 mmol/L (3.5-5.1); Sodium 141 mmol/L (136-145); Total Protein 6.3 g/dL (6.4-8.2)
[2019-08-09] MEDS: Normal Saline Flush 10 ML SYR IVP (11:11)
[2019-08-09 11:21] LABS: Abs Immature Grans 0.02 k/cumm (0.0-0.09); Absolute Basophil Count 0.03 k/cumm (0.0-0.2); Absolute Eosinophil Count 0.06 k/cumm (0.0-0.7); Absolute Lymphocyte Count 0.98 k/cumm (1.2-3.4); Absolute Monocyte Count 0.55 k/cumm (0.11-0.7); Absolute Neutrophil Count 6.16 k/cumm (1.2-6.7); Basophils % 0.4; Eosinophils % 0.8; HCT 42.4 % (40.0-50.0); HGB 14.2 g/dL (13.5-17.5); Immature Grans % 0.3 %; Lymphocytes % 12.6; Mean Corp. HGB Concentration 33.5 g/dL (32.0-36.0); Mean Corpuscular Hemoglobin 30.9 pg (27.0-33.0); Mean Corpuscular Volume 92.2 fL (80-95); Mean Platelet Volume 10.3 fL (8.0-11.0); Monocytes % 7.1; Neutrophils % 78.8; Platelet Count 195 x1000/uL (130-400); RBC Distribution Width 15.1 % (11.8-14.1)
[2019-08-09 11:36] LABS: ALT 17 U/L (16-63); AST 15 U/L (15-37); Albumin 3.7 g/dL (3.4-5.0); Alkaline Phosphatase 101 U/L (46-116); Anion Gap 6.6 mmol/L (3-11); BUN 27 mg/dL (7-18); Bilirubin, Total 0.3 mg/dL (0.2-1.0); CO2 28.4 mmol/L (21.0-32.0); Calcium 8.7 mg/dL (8.5-10.1); Chloride 104 mmol/L (98-107); Glucose 92 mg/dL (74-106); LDH 137 U/L (85-227); Potassium 4.5 mmol/L (3.5-5.1); Sodium 139 mmol/L (136-145); Total Protein 7.1 g/dL (6.4-8.2)
== END 2019-08-14 23:59 | disposition home or self-care (01) ==
LOC: INF 01:28
PROVIDERS: PCP Internal Medicine; Visit Provider Internal Medicine Hematology & Oncology
DX: C34.90 Malignant neoplasm of unspecified part of unspecified bronchus or lung (principal); Z45.2 Encounter for adjustment and management of vascular access device
CPT/HCPCS: 36415; 36591; 80053; 96523; 83615; 85025

== ENCOUNTER 2019-09-13 07:50 | Outpatient (RCR) | payer MEDICAID, SELFPAY ==
[2019-08-23 12:00] LABS: Abs Immature Grans 0.02 k/cumm (0.0-0.09); Absolute Basophil Count 0.05 k/cumm (0.0-0.2); Absolute Eosinophil Count 0.06 k/cumm (0.0-0.7); Absolute Lymphocyte Count 0.97 k/cumm (1.2-3.4); Absolute Monocyte Count 0.57 k/cumm (0.11-0.7); Absolute Neutrophil Count 4.39 k/cumm (1.2-6.7); Basophils % 0.8; HCT 40.3 % (40.0-50.0); HGB 13.5 g/dL (13.5-17.5); Immature Grans % 0.3 %; Mean Corp. HGB Concentration 33.5 g/dL (32.0-36.0); Mean Corpuscular Hemoglobin 30.6 pg (27.0-33.0); Mean Corpuscular Volume 91.4 fL (80-95); Mean Platelet Volume 10.6 fL (8.0-11.0); Monocytes % 9.4; Neutrophils % 72.5; Platelet Count 236 x1000/uL (130-400); RBC 4.41 m/cumm (4.50-6.00); RBC Distribution Width 15.1 % (11.8-14.1); White Blood Cell Count 6.06 k/cumm (4.4-10.8)
[2019-08-23 12:16] LABS: ALT 16 U/L (16-63); AST 14 U/L (15-37); Albumin 3.4 g/dL (3.4-5.0); Alkaline Phosphatase 100 U/L (46-116); Anion Gap 7.3 mmol/L (3-11); BUN 20 mg/dL (7-18); Bilirubin, Total 0.3 mg/dL (0.2-1.0); CO2 27.7 mmol/L (21.0-32.0); CREATININE 1.09 mg/dL (0.70-1.30); Calcium 8.8 mg/dL (8.5-10.1); Chloride 105 mmol/L (98-107); Glucose 78 mg/dL (74-106); LDH 128 U/L (85-227); Potassium 4.2 mmol/L (3.5-5.1); Sodium 140 mmol/L (136-145); Total Protein 6.8 g/dL (6.4-8.2)
[2019-08-30] MEDS: Normal Saline Flush 10 ML SYR IVP (11:11)
[2019-08-30 11:15] LABS: Abs Immature Grans 0.01 k/cumm (0.0-0.09); Absolute Basophil Count 0.04 k/cumm (0.0-0.2); Absolute Eosinophil Count 0.03 k/cumm (0.0-0.7); Absolute Lymphocyte Count 0.74 k/cumm (1.2-3.4); Absolute Monocyte Count 0.23 k/cumm (0.11-0.7); Basophils % 0.9; Eosinophils % 0.6; HCT 39.8 % (40.0-50.0); HGB 13.2 g/dL (13.5-17.5); Immature Grans % 0.2 %; Lymphocytes % 15.9; Mean Corp. HGB Concentration 33.2 g/dL (32.0-36.0); Mean Corpuscular Hemoglobin 30.1 pg (27.0-33.0); Mean Corpuscular Volume 90.9 fL (80-95); Mean Platelet Volume 11.3 fL (8.0-11.0); Monocytes % 4.9; Neutrophils % 77.5; Platelet Count 193 x1000/uL (130-400); RBC 4.38 m/cumm (4.50-6.00); RBC Distribution Width 14.9 % (11.8-14.1); White Blood Cell Count 4.65 k/cumm (4.4-10.8)
[2019-08-30 11:25] LABS: ALT 26 U/L (16-63); AST 25 U/L (15-37); Albumin 3.3 g/dL (3.4-5.0); Alkaline Phosphatase 99 U/L (46-116); Anion Gap 10.7 mmol/L (3-11); BUN 18 mg/dL (7-18); Bilirubin, Total 0.3 mg/dL (0.2-1.0); CO2 25.3 mmol/L (21.0-32.0); CREATININE 1.18 mg/dL (0.70-1.30); Calcium 8.2 mg/dL (8.5-10.1); Chloride 103 mmol/L (98-107); Glucose 137 mg/dL (74-106); Potassium 3.7 mmol/L (3.5-5.1); Sodium 139 mmol/L (136-145); Total Protein 6.7 g/dL (6.4-8.2)
[2019-09-13] MEDS: Normal Saline Flush 10 ML SYR IVP (08:16)
[2019-09-13 08:30] LABS: Abs Immature Grans 0.01 k/cumm (0.0-0.09); Absolute Basophil Count 0.03 k/cumm (0.0-0.2); Absolute Eosinophil Count 0.04 k/cumm (0.0-0.7); Absolute Lymphocyte Count 0.88 k/cumm (1.2-3.4); Absolute Neutrophil Count 4.14 k/cumm (1.2-6.7); Basophils % 0.5; Eosinophils % 0.7; HCT 40.5 % (40.0-50.0); HGB 13.4 g/dL (13.5-17.5); Immature Grans % 0.2 %; Lymphocytes % 15.2; Mean Corp. HGB Concentration 33.1 g/dL (32.0-36.0); Mean Corpuscular Hemoglobin 29.8 pg (27.0-33.0); Mean Corpuscular Volume 90.2 fL (80-95); Mean Platelet Volume 10.5 fL (8.0-11.0); Monocytes % 12.1; Neutrophils % 71.3; Platelet Count 230 x1000/uL (130-400); RBC 4.49 m/cumm (4.50-6.00); RBC Distribution Width 14.8 % (11.8-14.1)
[2019-09-13 08:51] LABS: ALT 29 U/L (16-63); AST 26 U/L (15-37); Albumin 3.3 g/dL (3.4-5.0); Alkaline Phosphatase 112 U/L (46-116); Anion Gap 7.5 mmol/L (3-11); BUN 20 mg/dL (7-18); Bilirubin, Total 0.4 mg/dL (0.2-1.0); CO2 28.5 mmol/L (21.0-32.0); CREATININE 1.07 mg/dL (0.70-1.30); Calcium 8.9 mg/dL (8.5-10.1); Chloride 104 mmol/L (98-107); Glucose 105 mg/dL (74-106); Potassium 4.5 mmol/L (3.5-5.1); Sodium 140 mmol/L (136-145); Total Protein 6.9 g/dL (6.4-8.2)
[2019-09-13 09:02] LABS: LDH 149 U/L (85-227)
== END 2019-09-14 23:59 | disposition home or self-care (01) ==
LOC: INF 07:50
PROVIDERS: PCP Internal Medicine; Visit Provider Internal Medicine Hematology & Oncology
DX: C34.90 Malignant neoplasm of unspecified part of unspecified bronchus or lung (principal); Z45.2 Encounter for adjustment and management of vascular access device
CPT/HCPCS: 36591; 80053; 83615; 85025

== ENCOUNTER 2019-10-11 07:00 | Outpatient (RCR) | payer MEDICAID, SELFPAY ==
[2019-09-20] MEDS: Normal Saline Flush 10 ML SYR IVP (08:36)
[2019-09-20 08:52] LABS: Abs Immature Grans 0.02 k/cumm (0.0-0.09); Absolute Basophil Count 0.04 k/cumm (0.0-0.2); Absolute Eosinophil Count 0.07 k/cumm (0.0-0.7); Absolute Lymphocyte Count 0.87 k/cumm (1.2-3.4); Absolute Neutrophil Count 4.72 k/cumm (1.2-6.7); Basophils % 0.7; Eosinophils % 1.1; HGB 12.8 g/dL (13.5-17.5); Immature Grans % 0.3 %; Lymphocytes % 14.2; Mean Corp. HGB Concentration 32.8 g/dL (32.0-36.0); Mean Corpuscular Hemoglobin 29.4 pg (27.0-33.0); Mean Corpuscular Volume 89.7 fL (80-95); Mean Platelet Volume 10.6 fL (8.0-11.0); Monocytes % 6.5; Neutrophils % 77.2; Platelet Count 237 x1000/uL (130-400); RBC 4.35 m/cumm (4.50-6.00); RBC Distribution Width 14.9 % (11.8-14.1); White Blood Cell Count 6.12 k/cumm (4.4-10.8)
[2019-09-20 09:00] LABS: ALT 17 U/L (16-63); AST 15 U/L (15-37); Albumin 3.2 g/dL (3.4-5.0); Alkaline Phosphatase 98 U/L (46-116); Anion Gap 8.2 mmol/L (3-11); BUN 20 mg/dL (7-18); Bilirubin, Total 0.3 mg/dL (0.2-1.0); CO2 27.8 mmol/L (21.0-32.0); Calcium 8.5 mg/dL (8.5-10.1); Chloride 104 mmol/L (98-107); Glucose 93 mg/dL (74-106); LDH 114 U/L (85-227); Potassium 4.2 mmol/L (3.5-5.1); Sodium 140 mmol/L (136-145); Total Protein 6.6 g/dL (6.4-8.2)
[2019-10-04] MEDS: Normal Saline Flush 10 ML SYR IVP (07:49)
[2019-10-04 08:01] LABS: Abs Immature Grans 0.02 k/cumm (0.0-0.09); Absolute Basophil Count 0.02 k/cumm (0.0-0.2); Absolute Eosinophil Count 0.05 k/cumm (0.0-0.7); Absolute Lymphocyte Count 0.67 k/cumm (1.2-3.4); Absolute Monocyte Count 0.46 k/cumm (0.11-0.7); Absolute Neutrophil Count 3.38 k/cumm (1.2-6.7); Basophils % 0.4; Eosinophils % 1.1; HCT 38.7 % (40.0-50.0); HGB 12.8 g/dL (13.5-17.5); Immature Grans % 0.4 %; Lymphocytes % 14.6; Mean Corp. HGB Concentration 33.1 g/dL (32.0-36.0); Mean Corpuscular Hemoglobin 29.4 pg (27.0-33.0); Mean Corpuscular Volume 88.8 fL (80-95); Mean Platelet Volume 10.5 fL (8.0-11.0); Neutrophils % 73.5; Platelet Count 222 x1000/uL (130-400); RBC 4.36 m/cumm (4.50-6.00); RBC Distribution Width 15.5 % (11.8-14.1)
[2019-10-04 08:11] LABS: ALT 15 U/L (16-63); AST 14 U/L (15-37); Albumin 3.3 g/dL (3.4-5.0); Alkaline Phosphatase 95 U/L (46-116); Anion Gap 8.7 mmol/L (3-11); BUN 10 mg/dL (7-18); Bilirubin, Total 0.4 mg/dL (0.2-1.0); CO2 27.3 mmol/L (21.0-32.0); CREATININE 0.98 mg/dL (0.70-1.30); Calcium 8.9 mg/dL (8.5-10.1); Chloride 104 mmol/L (98-107); Glucose 94 mg/dL (74-106); LDH 141 U/L (85-227); Sodium 140 mmol/L (136-145); Total Protein 6.8 g/dL (6.4-8.2)
[2019-10-11 08:29] LABS: Abs Immature Grans 0.04 k/cumm (0.0-0.09); Absolute Basophil Count 0.02 k/cumm (0.0-0.2); Absolute Eosinophil Count 0.12 k/cumm (0.0-0.7); Absolute Lymphocyte Count 0.77 k/cumm (1.2-3.4); Absolute Monocyte Count 0.48 k/cumm (0.11-0.7); Absolute Neutrophil Count 4.45 k/cumm (1.2-6.7); Basophils % 0.3; HCT 37.7 % (40.0-50.0); HGB 12.3 g/dL (13.5-17.5); Immature Grans % 0.7 %; Lymphocytes % 13.1; Mean Corp. HGB Concentration 32.6 g/dL (32.0-36.0); Mean Corpuscular Hemoglobin 29.5 pg (27.0-33.0); Mean Corpuscular Volume 90.4 fL (80-95); Mean Platelet Volume 10.7 fL (8.0-11.0); Monocytes % 8.2; Neutrophils % 75.7; Platelet Count 201 x1000/uL (130-400); RBC 4.17 m/cumm (4.50-6.00); RBC Distribution Width 15.8 % (11.8-14.1); White Blood Cell Count 5.88 k/cumm (4.4-10.8)
[2019-10-11] MEDS: Normal Saline Flush 10 ML SYR IVP (08:47)
[2019-10-11 08:49] LABS: ALT 15 U/L (16-63); AST 11 U/L (15-37); Alkaline Phosphatase 81 U/L (46-116); Anion Gap 6.2 mmol/L (3-11); BUN 20 mg/dL (7-18); Bilirubin, Total 0.2 mg/dL (0.2-1.0); CO2 28.8 mmol/L (21.0-32.0); CREATININE 0.97 mg/dL (0.70-1.30); Calcium 8.3 mg/dL (8.5-10.1); Chloride 104 mmol/L (98-107); Glucose 96 mg/dL (74-106); LDH 116 U/L (85-227); Potassium 4.3 mmol/L (3.5-5.1); Sodium 139 mmol/L (136-145); Total Protein 6.3 g/dL (6.4-8.2)
== END 2019-10-14 23:59 | disposition home or self-care (01) ==
LOC: INF 07:00
PROVIDERS: PCP Internal Medicine; Visit Provider Internal Medicine Hematology & Oncology
DX: C34.90 Malignant neoplasm of unspecified part of unspecified bronchus or lung (principal); Z45.2 Encounter for adjustment and management of vascular access device
CPT/HCPCS: 36591; 80053; 83615; 85025

== ENCOUNTER 2019-11-01 01:21 | Outpatient (RCR) | payer MEDICAID, SELFPAY ==
[2019-10-25] MEDS: Normal Saline Flush 10 ML SYR IVP (08:00)
[2019-10-25 08:26] LABS: Abs Immature Grans 0.02 k/cumm (0.0-0.09); Absolute Basophil Count 0.01 k/cumm (0.0-0.2); Absolute Eosinophil Count 0.03 k/cumm (0.0-0.7); Absolute Lymphocyte Count 1.06 k/cumm (1.2-3.4); Absolute Monocyte Count 0.67 k/cumm (0.11-0.7); Absolute Neutrophil Count 5.38 k/cumm (1.2-6.7); Basophils % 0.1; Eosinophils % 0.4; HCT 36.5 % (40.0-50.0); HGB 12.1 g/dL (13.5-17.5); Immature Grans % 0.3 %; Lymphocytes % 14.8; Mean Corp. HGB Concentration 33.2 g/dL (32.0-36.0); Mean Corpuscular Hemoglobin 29.9 pg (27.0-33.0); Mean Corpuscular Volume 90.1 fL (80-95); Mean Platelet Volume 10.7 fL (8.0-11.0); Monocytes % 9.3; Neutrophils % 75.1; Platelet Count 210 x1000/uL (130-400); RBC 4.05 m/cumm (4.50-6.00); RBC Distribution Width 16.2 % (11.8-14.1); White Blood Cell Count 7.17 k/cumm (4.4-10.8)
[2019-10-25 08:37] LABS: ALT 17 U/L (16-63); AST 11 U/L (15-37); Albumin 3.4 g/dL (3.4-5.0); Alkaline Phosphatase 88 U/L (46-116); Anion Gap 7.1 mmol/L (3-11); BUN 22 mg/dL (7-18); Bilirubin, Total 0.2 mg/dL (0.2-1.0); CO2 27.9 mmol/L (21.0-32.0); Calcium 8.6 mg/dL (8.5-10.1); Chloride 101 mmol/L (98-107); Glucose 93 mg/dL (74-106); LDH 121 U/L (85-227); Potassium 3.7 mmol/L (3.5-5.1); Sodium 136 mmol/L (136-145); Total Protein 6.6 g/dL (6.4-8.2)
[2019-11-01] MEDS: Normal Saline Flush 10 ML SYR IVP (08:00)
[2019-11-01 08:21] LABS: Abs Immature Grans 0.04 k/cumm (0.0-0.09); Absolute Basophil Count 0.01 k/cumm (0.0-0.2); Absolute Eosinophil Count 0.02 k/cumm (0.0-0.7); Absolute Lymphocyte Count 0.95 k/cumm (1.2-3.4); Absolute Monocyte Count 0.45 k/cumm (0.11-0.7); Absolute Neutrophil Count 4.86 k/cumm (1.2-6.7); Basophils % 0.2; Eosinophils % 0.3; HGB 11.7 g/dL (13.5-17.5); Immature Grans % 0.6 %; Mean Corp. HGB Concentration 32.5 g/dL (32.0-36.0); Mean Corpuscular Hemoglobin 29.3 pg (27.0-33.0); Mean Corpuscular Volume 90.2 fL (80-95); Mean Platelet Volume 10.8 fL (8.0-11.0); Monocytes % 7.1; Neutrophils % 76.8; Platelet Count 200 x1000/uL (130-400); RBC 3.99 m/cumm (4.50-6.00); RBC Distribution Width 17.1 % (11.8-14.1); White Blood Cell Count 6.33 k/cumm (4.4-10.8)
[2019-11-01 08:34] LABS: ALT 20 U/L (16-63); AST 12 U/L (15-37); Albumin 3.1 g/dL (3.4-5.0); Alkaline Phosphatase 66 U/L (46-116); Anion Gap 7.5 mmol/L (3-11); BUN 23 mg/dL (7-18); Bilirubin, Total 0.2 mg/dL (0.2-1.0); CO2 26.5 mmol/L (21.0-32.0); CREATININE 1.08 mg/dL (0.70-1.30); Calcium 8.2 mg/dL (8.5-10.1); Chloride 107 mmol/L (98-107); Glucose 96 mg/dL (74-106); LDH 135 U/L (85-227); Potassium 3.6 mmol/L (3.5-5.1); Sodium 141 mmol/L (136-145); Total Protein 6.1 g/dL (6.4-8.2)
== END 2019-11-14 23:59 | disposition home or self-care (01) ==
LOC: INF 01:21
PROVIDERS: PCP Internal Medicine; Visit Provider Internal Medicine Hematology & Oncology
DX: C34.90 Malignant neoplasm of unspecified part of unspecified bronchus or lung (principal); Z45.2 Encounter for adjustment and management of vascular access device
CPT/HCPCS: 36591; 80053; 83615; 85025

== ENCOUNTER 2019-12-13 10:00 | Outpatient (RCR) | payer MEDICAID, SELFPAY ==
[2019-11-22] MEDS: Normal Saline Flush 10 ML SYR IVP (12:08)
[2019-11-22 12:26] LABS: Abs Immature Grans 0.03 k/cumm (0.0-0.09); Absolute Basophil Count 0.01 k/cumm (0.0-0.2); Absolute Eosinophil Count 0.02 k/cumm (0.0-0.7); Absolute Lymphocyte Count 0.89 k/cumm (1.2-3.4); Absolute Monocyte Count 0.39 k/cumm (0.11-0.7); Absolute Neutrophil Count 5.69 k/cumm (1.2-6.7); Basophils % 0.1; Eosinophils % 0.3; HCT 38.3 % (40.0-50.0); HGB 12.7 g/dL (13.5-17.5); Immature Grans % 0.4 %; Lymphocytes % 12.7; Mean Corp. HGB Concentration 33.2 g/dL (32.0-36.0); Mean Corpuscular Hemoglobin 29.7 pg (27.0-33.0); Mean Corpuscular Volume 89.7 fL (80-95); Mean Platelet Volume 10.9 fL (8.0-11.0); Monocytes % 5.5; Platelet Count 222 x1000/uL (130-400); RBC 4.27 m/cumm (4.50-6.00); RBC Distribution Width 17.7 % (11.8-14.1); White Blood Cell Count 7.03 k/cumm (4.4-10.8)
[2019-11-22 12:47] LABS: ALT 17 U/L (16-63); AST 15 U/L (15-37); Albumin 3.4 g/dL (3.4-5.0); Alkaline Phosphatase 86 U/L (46-116); Anion Gap 9.7 mmol/L (3-11); BUN 12 mg/dL (7-18); Bilirubin, Total 0.5 mg/dL (0.2-1.0); CO2 26.3 mmol/L (21.0-32.0); CREATININE 1.24 mg/dL (0.70-1.30); Calcium 8.6 mg/dL (8.5-10.1); Chloride 104 mmol/L (98-107); Glucose 130 mg/dL (74-106); LDH 135 U/L (85-227); Potassium 3.4 mmol/L (3.5-5.1); Sodium 140 mmol/L (136-145); Total Protein 6.5 g/dL (6.4-8.2)
[2019-12-06] MEDS: Normal Saline Flush 10 ML SYR IVP (12:06)
[2019-12-06 12:09] LABS: Absolute Basophil Count 0.02 k/cumm (0.0-0.2); Absolute Eosinophil Count 0.02 k/cumm (0.0-0.7); Absolute Lymphocyte Count 0.74 k/cumm (1.2-3.4); Absolute Monocyte Count 0.61 k/cumm (0.11-0.7); Absolute Neutrophil Count 3.79 k/cumm (1.2-6.7); Basophils % 0.4; Eosinophils % 0.4; HCT 38.3 % (40.0-50.0); HGB 12.7 g/dL (13.5-17.5); Lymphocytes % 14.3; Mean Corp. HGB Concentration 33.2 g/dL (32.0-36.0); Mean Corpuscular Hemoglobin 29.9 pg (27.0-33.0); Mean Corpuscular Volume 90.1 fL (80-95); Mean Platelet Volume 10.1 fL (8.0-11.0); Monocytes % 11.8; Neutrophils % 73.1; Platelet Count 217 x1000/uL (130-400); RBC 4.25 m/cumm (4.50-6.00); RBC Distribution Width 17.4 % (11.8-14.1); White Blood Cell Count 5.18 k/cumm (4.4-10.8)
[2019-12-06 12:31] LABS: ALT 13 U/L (16-63); AST 13 U/L (15-37); Albumin 3.4 g/dL (3.4-5.0); Alkaline Phosphatase 98 U/L (46-116); Anion Gap 9.4 mmol/L (3-11); BUN 10 mg/dL (7-18); Bilirubin, Total 0.5 mg/dL (0.2-1.0); CO2 26.6 mmol/L (21.0-32.0); CREATININE 0.95 mg/dL (0.70-1.30); Calcium 8.8 mg/dL (8.5-10.1); Chloride 104 mmol/L (98-107); Glucose 90 mg/dL (74-106); LDH 141 U/L (85-227); Potassium 3.6 mmol/L (3.5-5.1); Sodium 140 mmol/L (136-145); Total Protein 6.6 g/dL (6.4-8.2)
[2019-12-13 10:59] LABS: Abs Immature Grans 0.02 k/cumm (0.0-0.09); Absolute Basophil Count 0.02 k/cumm (0.0-0.2); Absolute Eosinophil Count 0.03 k/cumm (0.0-0.7); Absolute Lymphocyte Count 0.69 k/cumm (1.2-3.4); Absolute Monocyte Count 0.36 k/cumm (0.11-0.7); Absolute Neutrophil Count 5.39 k/cumm (1.2-6.7); Basophils % 0.3; Eosinophils % 0.5; Immature Grans % 0.3 %; Lymphocytes % 10.6; Mean Corp. HGB Concentration 33.3 g/dL (32.0-36.0); Mean Corpuscular Hemoglobin 30.3 pg (27.0-33.0); Mean Corpuscular Volume 90.9 fL (80-95); Mean Platelet Volume 10.8 fL (8.0-11.0); Monocytes % 5.5; Neutrophils % 82.8; Platelet Count 202 x1000/uL (130-400); RBC 3.96 m/cumm (4.50-6.00); RBC Distribution Width 17.5 % (11.8-14.1); White Blood Cell Count 6.51 k/cumm (4.4-10.8)
[2019-12-13 11:11] LABS: ALT 14 U/L (16-63); AST 16 U/L (15-37); Albumin 3.1 g/dL (3.4-5.0); Alkaline Phosphatase 91 U/L (46-116); Anion Gap 6.5 mmol/L (3-11); BUN 9 mg/dL (7-18); Bilirubin, Total 0.4 mg/dL (0.2-1.0); CO2 28.5 mmol/L (21.0-32.0); CREATININE 1.08 mg/dL (0.70-1.30); Calcium 8.5 mg/dL (8.5-10.1); Chloride 105 mmol/L (98-107); Glucose 95 mg/dL (74-106); LDH 144 U/L (85-227); Potassium 3.3 mmol/L (3.5-5.1); Sodium 140 mmol/L (136-145); Total Protein 6.2 g/dL (6.4-8.2)
[2019-12-13] MEDS: Normal Saline Flush 10 ML SYR IVP (11:24)
== END 2019-12-14 23:59 | disposition home or self-care (01) ==
LOC: INF 10:00
PROVIDERS: PCP Internal Medicine; Visit Provider Internal Medicine Hematology & Oncology
DX: Z45.2 Encounter for adjustment and management of vascular access device (principal); C34.90 Malignant neoplasm of unspecified part of unspecified bronchus or lung
CPT/HCPCS: 36591; 80053; 83615; 85025

== ENCOUNTER 2020-01-03 01:53 | Outpatient (RCR) | payer MEDICAID, SELFPAY ==
[2019-12-27 10:50] LABS: Abs Immature Grans 0.01 k/cumm (0.0-0.09); Absolute Basophil Count 0.02 k/cumm (0.0-0.2); Absolute Eosinophil Count 0.03 k/cumm (0.0-0.7); Absolute Lymphocyte Count 0.62 k/cumm (1.2-3.4); Absolute Monocyte Count 0.53 k/cumm (0.11-0.7); Absolute Neutrophil Count 3.28 k/cumm (1.2-6.7); Basophils % 0.4; Eosinophils % 0.7; HCT 35.1 % (40.0-50.0); HGB 11.5 g/dL (13.5-17.5); Immature Grans % 0.2 %; Lymphocytes % 13.8; Mean Corp. HGB Concentration 32.8 g/dL (32.0-36.0); Mean Corpuscular Hemoglobin 29.8 pg (27.0-33.0); Mean Corpuscular Volume 90.9 fL (80-95); Mean Platelet Volume 10.2 fL (8.0-11.0); Monocytes % 11.8; Neutrophils % 73.1; Platelet Count 224 x1000/uL (130-400); RBC 3.86 m/cumm (4.50-6.00); RBC Distribution Width 17.2 % (11.8-14.1); White Blood Cell Count 4.49 k/cumm (4.4-10.8)
[2019-12-27 11:02] LABS: ALT 13 U/L (16-63); AST 14 U/L (15-37); Alkaline Phosphatase 96 U/L (46-116); Anion Gap 6.8 mmol/L (3-11); BUN 15 mg/dL (7-18); Bilirubin, Total 0.4 mg/dL (0.2-1.0); CO2 29.2 mmol/L (21.0-32.0); CREATININE 1.01 mg/dL (0.70-1.30); Calcium 8.4 mg/dL (8.5-10.1); Chloride 103 mmol/L (98-107); Glucose 96 mg/dL (74-106); LDH 138 U/L (85-227); Potassium 3.9 mmol/L (3.5-5.1); Sodium 139 mmol/L (136-145); Total Protein 6.2 g/dL (6.4-8.2)
[2019-12-27] MEDS: Normal Saline Flush 10 ML SYR IVP (11:33)
[2020-01-03 10:39] LABS: Abs Immature Grans 0.01 k/cumm (0.0-0.09); Absolute Basophil Count 0.03 k/cumm (0.0-0.2); Absolute Eosinophil Count 0.03 k/cumm (0.0-0.7); Absolute Lymphocyte Count 0.71 k/cumm (1.2-3.4); Absolute Monocyte Count 0.33 k/cumm (0.11-0.7); Absolute Neutrophil Count 5.26 k/cumm (1.2-6.7); Basophils % 0.5; Eosinophils % 0.5; HCT 36.6 % (40.0-50.0); HGB 12.4 g/dL (13.5-17.5); Immature Grans % 0.2 %; Lymphocytes % 11.1; Mean Corp. HGB Concentration 33.9 g/dL (32.0-36.0); Mean Corpuscular Hemoglobin 30.6 pg (27.0-33.0); Mean Corpuscular Volume 90.4 fL (80-95); Mean Platelet Volume 10.6 fL (8.0-11.0); Monocytes % 5.2; Neutrophils % 82.5; Platelet Count 212 x1000/uL (130-400); RBC 4.05 m/cumm (4.50-6.00); RBC Distribution Width 17.2 % (11.8-14.1); White Blood Cell Count 6.37 k/cumm (4.4-10.8)
[2020-01-03] MEDS: Normal Saline Flush 10 ML SYR IVP (10:55)
[2020-01-03 11:11] LABS: ALT 15 U/L (16-63); AST 16 U/L (15-37); Albumin 3.2 g/dL (3.4-5.0); Alkaline Phosphatase 84 U/L (46-116); Anion Gap 7.2 mmol/L (3-11); BUN 13 mg/dL (7-18); Bilirubin, Total 0.3 mg/dL (0.2-1.0); CO2 28.8 mmol/L (21.0-32.0); CREATININE 0.94 mg/dL (0.70-1.30); Calcium 8.5 mg/dL (8.5-10.1); Chloride 103 mmol/L (98-107); Glucose 127 mg/dL (74-106); LDH 126 U/L (85-227); Potassium 3.6 mmol/L (3.5-5.1); Sodium 139 mmol/L (136-145); Total Protein 6.4 g/dL (6.4-8.2)
== END 2020-01-14 23:59 | disposition home or self-care (01) ==
LOC: INF 01:53
PROVIDERS: PCP Internal Medicine; Visit Provider Internal Medicine Hematology & Oncology
DX: C34.90 Malignant neoplasm of unspecified part of unspecified bronchus or lung (principal); Z45.2 Encounter for adjustment and management of vascular access device
CPT/HCPCS: 36591; 80053; 83615; 85025

== ENCOUNTER 2020-02-14 07:06 | Outpatient (RCR) | payer MEDICAID, SELFPAY ==
[2020-02-14] MEDS: Normal Saline Flush 10 ML SYR IVP (07:16)
[2020-02-14 07:22] LABS: Abs Immature Grans 0.02 10^3/uL (0.0-0.06); Absolute Basophil Count 0.03 10^3/uL (0.0-0.2); Absolute Monocyte Count 0.42 10^3/uL (0.1-0.8); Absolute Neutrophil Count 4.66 10^3/uL (1.2-6.7); Basophils % 0.5; Eosinophils % 3.3; HCT 40.5 % (40.0-50.0); HGB 13.1 g/dL (13.5-17.5); Immature Grans % 0.3; Lymphocytes % 11.6; MCH 29.8 pg (27.0-33.0); MCHC 32.3 % (32.0-36.0); MCV 92.3 fL (80-95); MPV 11.1 fL (8.0-11.0); Neutrophils % 77.3; Nucleated RBC 0 %; Platelet Count 187 10^3/uL (130-400); RBC 4.39 10^6/uL (4.36-5.78); RDW 15.4 % (11.8-14.1); RDW-SD 52.2 fL; WBC 6.03 10^3/uL (4.4-10.8)
[2020-02-14 07:29] LABS: ALT 13 U/L (16-63); AST 12 U/L (15-37); Albumin 3.3 g/dL (3.4-5.0); Alkaline Phosphatase 108 U/L (46-116); Anion Gap 8.2 mmol/L (3-11); BUN 15 mg/dL (7-18); Bilirubin, Total 0.4 mg/dL (0.2-1.0); CO2 28.8 mmol/L (21.0-32.0); CREATININE 0.88 mg/dL (0.70-1.30); Calcium 9.2 mg/dL (8.5-10.1); Chloride 102 mmol/L (98-107); Glucose 130 mg/dL (74-106); LDH 111 U/L (85-227); Potassium 4.1 mmol/L (3.5-5.1); Sodium 139 mmol/L (136-145); Total Protein 6.6 g/dL (6.4-8.2)
== END 2020-02-14 23:59 | disposition home or self-care (01) ==
LOC: INF 07:06
PROVIDERS: PCP Internal Medicine; Visit Provider Internal Medicine Hematology & Oncology
DX: C34.91 Malignant neoplasm of unspecified part of right bronchus or lung (principal); Z45.2 Encounter for adjustment and management of vascular access device
CPT/HCPCS: 36591; 80053; 83615; 85025

== ENCOUNTER 2020-03-06 01:21 | Outpatient (RCR) | payer MEDICAID, SELFPAY ==
[2020-02-22] MEDS: Normal Saline Flush 10 ML SYR IVP (07:40)
[2020-02-22 07:47] LABS: Abs Immature Grans 0.02 10^3/uL (0.0-0.06); Absolute Basophil Count 0.03 10^3/uL (0.0-0.2); Absolute Lymphocyte Count 0.84 10^3/uL (1.2-3.4); Absolute Monocyte Count 0.39 10^3/uL (0.1-0.8); Basophils % 0.6; Eosinophils % 2.1; HCT 37.4 % (40.0-50.0); HGB 11.9 g/dL (13.5-17.5); Immature Grans % 0.4; Lymphocytes % 17.6; MCH 29.8 pg (27.0-33.0); MCHC 31.8 % (32.0-36.0); MCV 93.5 fL (80-95); MPV 11.1 fL (8.0-11.0); Monocytes % 8.2; Neutrophils % 71.1; Nucleated RBC 0 %; Platelet Count 200 10^3/uL (130-400); RDW 15.6 % (11.8-14.1); RDW-SD 53.4 fL; WBC 4.78 10^3/uL (4.4-10.8)
[2020-02-22 08:00] LABS: ALT 13 U/L (16-63); AST 10 U/L (15-37); Albumin 3.2 g/dL (3.4-5.0); Alkaline Phosphatase 92 U/L (46-116); Anion Gap 5.1 mmol/L (3-11); BUN 19 mg/dL (7-18); Bilirubin, Total 0.3 mg/dL (0.2-1.0); CO2 27.9 mmol/L (21.0-32.0); CREATININE 1.03 mg/dL (0.70-1.30); Calcium 8.6 mg/dL (8.5-10.1); Chloride 103 mmol/L (98-107); Glucose 108 mg/dL (74-106); Potassium 4.2 mmol/L (3.5-5.1); Sodium 136 mmol/L (136-145); Total Protein 6.1 g/dL (6.4-8.2)
[2020-03-06 07:53] LABS: Abs Immature Grans 0.02 10^3/uL (0.0-0.06); Absolute Basophil Count 0.03 10^3/uL (0.0-0.2); Absolute Eosinophil Count 0.02 10^3/uL (0.0-0.7); Absolute Lymphocyte Count 0.82 10^3/uL (1.2-3.4); Absolute Monocyte Count 0.46 10^3/uL (0.1-0.8); Absolute Neutrophil Count 4.08 10^3/uL (1.2-6.7); Basophils % 0.6; Eosinophils % 0.4; HCT 40.6 % (40.0-50.0); HGB 13.2 g/dL (13.5-17.5); Immature Grans % 0.4; Lymphocytes % 15.1; MCH 29.8 pg (27.0-33.0); MCHC 32.5 % (32.0-36.0); MCV 91.6 fL (80-95); MPV 10.6 fL (8.0-11.0); Monocytes % 8.5; Nucleated RBC 0 %; Platelet Count 221 10^3/uL (130-400); RBC 4.43 10^6/uL (4.36-5.78); RDW 15.9 % (11.8-14.1); RDW-SD 53.1 fL; WBC 5.43 10^3/uL (4.4-10.8)
[2020-03-06] MEDS: Normal Saline Flush 10 ML SYR IVP (07:59)
[2020-03-06 08:06] LABS: ALT 15 U/L (16-63); AST 17 U/L (15-37); Albumin 3.5 g/dL (3.4-5.0); Alkaline Phosphatase 110 U/L (46-116); Anion Gap 9.3 mmol/L (3-11); BUN 13 mg/dL (7-18); Bilirubin, Total 0.5 mg/dL (0.2-1.0); CO2 26.7 mmol/L (21.0-32.0); CREATININE 1.01 mg/dL (0.70-1.30); Calcium 9.1 mg/dL (8.5-10.1); Chloride 105 mmol/L (98-107); Glucose 104 mg/dL (74-106); LDH 141 U/L (85-227); Potassium 3.9 mmol/L (3.5-5.1); Sodium 141 mmol/L (136-145); Total Protein 6.8 g/dL (6.4-8.2)
== END 2020-03-15 23:59 | disposition home or self-care (01) ==
LOC: INF 01:21
PROVIDERS: PCP Internal Medicine; Visit Provider Internal Medicine Hematology & Oncology
DX: C34.90 Malignant neoplasm of unspecified part of unspecified bronchus or lung (principal); Z45.2 Encounter for adjustment and management of vascular access device
CPT/HCPCS: 36591; 80053; 83615; 85025

== ENCOUNTER 2020-04-03 01:33 | Outpatient (RCR) | payer MEDICAID, SELFPAY ==
[2020-03-27 07:24] LABS: Abs Immature Grans 0.01 10^3/uL (0.0-0.06); Absolute Basophil Count 0.05 10^3/uL (0.0-0.2); Absolute Eosinophil Count 0.03 10^3/uL (0.0-0.7); Absolute Lymphocyte Count 0.72 10^3/uL (1.2-3.4); Absolute Monocyte Count 0.43 10^3/uL (0.1-0.8); Absolute Neutrophil Count 4.46 10^3/uL (1.2-6.7); Basophils % 0.9; Eosinophils % 0.5; HCT 39.7 % (40.0-50.0); HGB 12.9 g/dL (13.5-17.5); Immature Grans % 0.2; Lymphocytes % 12.6; MCH 29.9 pg (27.0-33.0); MCHC 32.5 % (32.0-36.0); MCV 92.1 fL (80-95); MPV 10.8 fL (8.0-11.0); Monocytes % 7.5; Neutrophils % 78.3; Nucleated RBC 0 %; Platelet Count 211 10^3/uL (130-400); RBC 4.31 10^6/uL (4.36-5.78); RDW 15.8 % (11.8-14.1); RDW-SD 53.7 fL
[2020-03-27] MEDS: Normal Saline Flush 10 ML SYR 30 ML IVP (07:31)
[2020-03-27 07:36] LABS: ALT 13 U/L (16-63); AST 13 U/L (15-37); Albumin 3.2 g/dL (3.4-5.0); Alkaline Phosphatase 96 U/L (46-116); Anion Gap 8.7 mmol/L (3-11); BUN 14 mg/dL (7-18); Bilirubin, Total 0.3 mg/dL (0.2-1.0); CO2 27.3 mmol/L (21.0-32.0); CREATININE 0.83 mg/dL (0.70-1.30); Calcium 8.9 mg/dL (8.5-10.1); Chloride 105 mmol/L (98-107); Glucose 106 mg/dL (74-106); LDH 140 U/L (85-227); Potassium 3.9 mmol/L (3.5-5.1); Sodium 141 mmol/L (136-145); Total Protein 6.6 g/dL (6.4-8.2)
== END 2020-04-15 23:59 | disposition home or self-care (01) ==
LOC: INF 01:33
PROVIDERS: PCP Internal Medicine
DX: C79.89 Secondary malignant neoplasm of other specified sites (principal); C34.12 Malignant neoplasm of upper lobe, left bronchus or lung; Z45.2 Encounter for adjustment and management of vascular access device
CPT/HCPCS: 36591; 80053; 83615; 85025

== ENCOUNTER 2020-04-24 10:00 | Outpatient (RCR) | payer MEDICAID, SELFPAY ==
[2020-04-24] MEDS: Normal Saline Flush 10 ML SYR IVP (09:57)
[2020-04-24 10:07] LABS: Abs Immature Grans 0.03 10^3/uL (0.0-0.06); Absolute Basophil Count 0.04 10^3/uL (0.0-0.2); Absolute Eosinophil Count 0.02 10^3/uL (0.0-0.7); Absolute Lymphocyte Count 0.99 10^3/uL (1.2-3.4); Absolute Monocyte Count 0.33 10^3/uL (0.1-0.8); Absolute Neutrophil Count 4.46 10^3/uL (1.2-6.7); Basophils % 0.7; Eosinophils % 0.3; HGB 12.4 g/dL (13.5-17.5); Immature Grans % 0.5; Lymphocytes % 16.9; MCH 29.7 pg (27.0-33.0); MCHC 32.6 % (32.0-36.0); MCV 90.9 fL (80-95); MPV 11.1 fL (8.0-11.0); Monocytes % 5.6; Nucleated RBC 0 %; Platelet Count 200 10^3/uL (130-400); RBC 4.18 10^6/uL (4.36-5.78); RDW-SD 52.7 fL; WBC 5.87 10^3/uL (4.4-10.8)
[2020-04-24 10:18] LABS: ALT 12 U/L (16-63); AST 12 U/L (15-37); Albumin 3.3 g/dL (3.4-5.0); Alkaline Phosphatase 105 U/L (46-116); Anion Gap 8.7 mmol/L (3-11); BUN 15 mg/dL (7-18); Bilirubin, Total 0.4 mg/dL (0.2-1.0); CO2 26.3 mmol/L (21.0-32.0); CREATININE 0.93 mg/dL (0.70-1.30); Calcium 8.5 mg/dL (8.5-10.1); Chloride 104 mmol/L (98-107); Glucose 134 mg/dL (74-106); Potassium 3.6 mmol/L (3.5-5.1); Sodium 139 mmol/L (136-145); Total Protein 6.6 g/dL (6.4-8.2)
== END 2020-05-15 23:59 | disposition home or self-care (01) ==
LOC: INF 10:00
PROVIDERS: PCP Internal Medicine
DX: C34.12 Malignant neoplasm of upper lobe, left bronchus or lung (principal); Z45.2 Encounter for adjustment and management of vascular access device
CPT/HCPCS: 36591; 80053; 85025

== ENCOUNTER 2020-05-15 02:09 | Outpatient (RCR) | payer MEDICAID, SELFPAY ==
[2020-04-17] MEDS: Normal Saline Flush 10 ML SYR IVP (10:20)
[2020-04-17 10:45] LABS: Abs Immature Grans 0.02 10^3/uL (0.0-0.06); Absolute Basophil Count 0.05 10^3/uL (0.0-0.2); Absolute Eosinophil Count 0.03 10^3/uL (0.0-0.7); Absolute Lymphocyte Count 0.92 10^3/uL (1.2-3.4); Absolute Monocyte Count 0.62 10^3/uL (0.1-0.8); Absolute Neutrophil Count 5.14 10^3/uL (1.2-6.7); Basophils % 0.7; Eosinophils % 0.4; HCT 37.8 % (40.0-50.0); HGB 12.2 g/dL (13.5-17.5); Immature Grans % 0.3; Lymphocytes % 13.6; MCH 29.8 pg (27.0-33.0); MCHC 32.3 % (32.0-36.0); MCV 92.4 fL (80-95); MPV 11.2 fL (8.0-11.0); Monocytes % 9.1; Neutrophils % 75.9; Nucleated RBC 0 %; Platelet Count 202 10^3/uL (130-400); RBC 4.09 10^6/uL (4.36-5.78); WBC 6.78 10^3/uL (4.4-10.8)
[2020-04-17 10:48] LABS: ALT 13 U/L (16-63); AST 9 U/L (15-37); Albumin 3.2 g/dL (3.4-5.0); Alkaline Phosphatase 107 U/L (46-116); Anion Gap 5.2 mmol/L (3-11); BUN 12 mg/dL (7-18); Bilirubin, Total 0.3 mg/dL (0.2-1.0); CO2 27.8 mmol/L (21.0-32.0); Calcium 8.4 mg/dL (8.5-10.1); Chloride 107 mmol/L (98-107); Glucose 100 mg/dL (74-106); LDH 132 U/L (85-227); Potassium 3.6 mmol/L (3.5-5.1); Sodium 140 mmol/L (136-145); Total Protein 6.4 g/dL (6.4-8.2)
[2020-05-08] MEDS: Normal Saline Flush 10 ML SYR IVP (07:57)
[2020-05-08 08:09] LABS: Abs Immature Grans 0.02 10^3/uL (0.0-0.06); Absolute Basophil Count 0.04 10^3/uL (0.0-0.2); Absolute Eosinophil Count 0.03 10^3/uL (0.0-0.7); Absolute Lymphocyte Count 0.68 10^3/uL (1.2-3.4); Absolute Monocyte Count 0.54 10^3/uL (0.1-0.8); Absolute Neutrophil Count 3.57 10^3/uL (1.2-6.7); Basophils % 0.8; Eosinophils % 0.6; HGB 12.2 g/dL (13.5-17.5); Immature Grans % 0.4; Lymphocytes % 13.9; MCH 29.8 pg (27.0-33.0); MCHC 32.1 % (32.0-36.0); MCV 92.9 fL (80-95); MPV 10.9 fL (8.0-11.0); Monocytes % 11.1; Neutrophils % 73.2; Nucleated RBC 0 %; Platelet Count 213 10^3/uL (130-400); RBC 4.09 10^6/uL (4.36-5.78); RDW 16.3 % (11.8-14.1); RDW-SD 54.9 fL; WBC 4.88 10^3/uL (4.4-10.8)
[2020-05-08 08:21] LABS: ALT 19 U/L (16-63); AST 16 U/L (15-37); Albumin 3.4 g/dL (3.4-5.0); Alkaline Phosphatase 101 U/L (46-116); Anion Gap 8.9 mmol/L (3-11); BUN 18 mg/dL (7-18); Bilirubin, Total 0.3 mg/dL (0.2-1.0); CO2 28.1 mmol/L (21.0-32.0); CREATININE 1.12 mg/dL (0.70-1.30); Calcium 8.5 mg/dL (8.5-10.1); Chloride 105 mmol/L (98-107); Glucose 92 mg/dL (74-106); LDH 130 U/L (85-227); Potassium 3.9 mmol/L (3.5-5.1); Sodium 142 mmol/L (136-145); Total Protein 6.7 g/dL (6.4-8.2)
[2020-05-15] MEDS: Normal Saline Flush 10 ML SYR IVP (08:25)
[2020-05-15 08:47] LABS: Abs Immature Grans 0.03 10^3/uL (0.0-0.06); Absolute Basophil Count 0.04 10^3/uL (0.0-0.2); Absolute Eosinophil Count 0.06 10^3/uL (0.0-0.7); Absolute Lymphocyte Count 0.85 10^3/uL (1.2-3.4); Absolute Monocyte Count 0.38 10^3/uL (0.1-0.8); Absolute Neutrophil Count 3.81 10^3/uL (1.2-6.7); Basophils % 0.8; Eosinophils % 1.2; HCT 35.1 % (40.0-50.0); HGB 11.4 g/dL (13.5-17.5); Immature Grans % 0.6; Lymphocytes % 16.4; MCHC 32.5 % (32.0-36.0); MCV 92.4 fL (80-95); MPV 11.3 fL (8.0-11.0); Monocytes % 7.4; Neutrophils % 73.6; Nucleated RBC 0 %; Platelet Count 177 10^3/uL (130-400); RDW 16.5 % (11.8-14.1); RDW-SD 54.9 fL; WBC 5.17 10^3/uL (4.4-10.8)
[2020-05-15 09:54] LABS: ALT 17 U/L (16-63); AST 16 U/L (15-37); Albumin 3.1 g/dL (3.4-5.0); Alkaline Phosphatase 97 U/L (46-116); Anion Gap 6.4 mmol/L (3-11); BUN 18 mg/dL (7-18); Bilirubin, Total 0.3 mg/dL (0.2-1.0); CO2 26.6 mmol/L (21.0-32.0); CREATININE 0.93 mg/dL (0.70-1.30); Calcium 8.5 mg/dL (8.5-10.1); Chloride 106 mmol/L (98-107); Glucose 93 mg/dL (74-106); LDH 137 U/L (85-227); Potassium 4.4 mmol/L (3.5-5.1); Sodium 139 mmol/L (136-145); Total Protein 6.2 g/dL (6.4-8.2)
== END 2020-05-15 23:59 | disposition home or self-care (01) ==
LOC: INF 02:09
PROVIDERS: PCP Internal Medicine
DX: C79.89 Secondary malignant neoplasm of other specified sites (principal); C34.12 Malignant neoplasm of upper lobe, left bronchus or lung; Z45.2 Encounter for adjustment and management of vascular access device
CPT/HCPCS: 36415; 36591; 80053; 96523; 83615; 85025

== ENCOUNTER 2020-06-05 01:44 | Outpatient (RCR) | payer MEDICAID, SELFPAY ==
[2020-05-29] MEDS: Normal Saline Flush 10 ML SYR IVP (08:16)
[2020-05-29 08:18] LABS: Abs Immature Grans 0.04 10^3/uL (0.0-0.06); Absolute Basophil Count 0.04 10^3/uL (0.0-0.2); Absolute Eosinophil Count 0.04 10^3/uL (0.0-0.7); Absolute Lymphocyte Count 0.89 10^3/uL (1.2-3.4); Absolute Monocyte Count 0.72 10^3/uL (0.1-0.8); Absolute Neutrophil Count 6.34 10^3/uL (1.2-6.7); Basophils % 0.5; Eosinophils % 0.5; HCT 38.9 % (40.0-50.0); HGB 12.5 g/dL (13.5-17.5); Immature Grans % 0.5; MCH 29.5 pg (27.0-33.0); MCHC 32.1 % (32.0-36.0); MCV 91.7 fL (80-95); MPV 10.7 fL (8.0-11.0); Monocytes % 8.9; Neutrophils % 78.6; Nucleated RBC 0 %; Platelet Count 230 10^3/uL (130-400); RBC 4.24 10^6/uL (4.36-5.78); RDW 16.2 % (11.8-14.1); RDW-SD 53.9 fL; WBC 8.07 10^3/uL (4.4-10.8)
[2020-05-29 08:26] LABS: ALT 13 U/L (16-63); AST 12 U/L (15-37); Albumin 3.5 g/dL (3.4-5.0); Alkaline Phosphatase 112 U/L (46-116); Anion Gap 6.3 mmol/L (3-11); BUN 16 mg/dL (7-18); Bilirubin, Total 0.4 mg/dL (0.2-1.0); CO2 27.7 mmol/L (21.0-32.0); CREATININE 1.08 mg/dL (0.70-1.30); Calcium 8.7 mg/dL (8.5-10.1); Chloride 104 mmol/L (98-107); Glucose 105 mg/dL (74-106); LDH 172 U/L (85-227); Sodium 138 mmol/L (136-145); Total Protein 6.9 g/dL (6.4-8.2)
[2020-06-05] MEDS: Normal Saline Flush 10 ML SYR IVP (07:19)
[2020-06-05 07:42] LABS: Abs Immature Grans 0.02 10^3/uL (0.0-0.06); Absolute Basophil Count 0.04 10^3/uL (0.0-0.2); Absolute Eosinophil Count 0.05 10^3/uL (0.0-0.7); Absolute Lymphocyte Count 0.99 10^3/uL (1.2-3.4); Absolute Monocyte Count 0.36 10^3/uL (0.1-0.8); Absolute Neutrophil Count 3.45 10^3/uL (1.2-6.7); Basophils % 0.8; HCT 33.5 % (40.0-50.0); Immature Grans % 0.4; Lymphocytes % 20.2; MCH 30.2 pg (27.0-33.0); MCHC 32.8 % (32.0-36.0); MPV 10.9 fL (8.0-11.0); Monocytes % 7.3; Neutrophils % 70.3; Nucleated RBC 0 %; Platelet Count 190 10^3/uL (130-400); RBC 3.64 10^6/uL (4.36-5.78); RDW 16.1 % (11.8-14.1); RDW-SD 54.3 fL; WBC 4.91 10^3/uL (4.4-10.8)
[2020-06-05 07:59] LABS: ALT 12 U/L (16-63); AST 10 U/L (15-37); Alkaline Phosphatase 92 U/L (46-116); Anion Gap 6.7 mmol/L (3-11); BUN 19 mg/dL (7-18); Bilirubin, Total 0.4 mg/dL (0.2-1.0); CO2 28.3 mmol/L (21.0-32.0); CREATININE 0.96 mg/dL (0.70-1.30); Calcium 8.5 mg/dL (8.5-10.1); Chloride 107 mmol/L (98-107); Glucose 93 mg/dL (74-106); LDH 118 U/L (85-227); Potassium 3.7 mmol/L (3.5-5.1); Sodium 142 mmol/L (136-145)
== END 2020-06-15 23:59 | disposition home or self-care (01) ==
LOC: INF 01:44
PROVIDERS: Internal Medicine Hematology & Oncology; PCP Internal Medicine; Visit Provider Nurse Practitioner Family
DX: C34.12 Malignant neoplasm of upper lobe, left bronchus or lung (principal); Z45.2 Encounter for adjustment and management of vascular access device; C79.89 Secondary malignant neoplasm of other specified sites
CPT/HCPCS: 36591; 80053; 83615; 85025

== ENCOUNTER 2020-07-10 03:00 | Outpatient (RCR) | payer MEDICAID, SELFPAY ==
[2020-06-19] MEDS: Normal Saline Flush 10 ML SYR IVP (07:46)
[2020-06-19 07:54] LABS: Abs Immature Grans 0.03 10^3/uL (0.0-0.06); Absolute Basophil Count 0.03 10^3/uL (0.0-0.2); Absolute Eosinophil Count 0.02 10^3/uL (0.0-0.7); Absolute Lymphocyte Count 0.51 10^3/uL (1.2-3.4); Absolute Monocyte Count 0.51 10^3/uL (0.1-0.8); Absolute Neutrophil Count 4.79 10^3/uL (1.2-6.7); Basophils % 0.5; Eosinophils % 0.3; HCT 35.7 % (40.0-50.0); HGB 11.5 g/dL (13.5-17.5); Immature Grans % 0.5; Lymphocytes % 8.7; MCH 30.2 pg (27.0-33.0); MCHC 32.2 % (32.0-36.0); MCV 93.7 fL (80-95); MPV 10.8 fL (8.0-11.0); Monocytes % 8.7; Neutrophils % 81.3; Nucleated RBC 0 %; Platelet Count 185 10^3/uL (130-400); RBC 3.81 10^6/uL (4.36-5.78); RDW 15.7 % (11.8-14.1); RDW-SD 53.9 fL; WBC 5.89 10^3/uL (4.4-10.8)
[2020-06-19 08:04] LABS: ALT 16 U/L (16-63); AST 15 U/L (15-37); Albumin 3.2 g/dL (3.4-5.0); Alkaline Phosphatase 104 U/L (46-116); Anion Gap 5.3 mmol/L (3-11); BUN 16 mg/dL (7-18); Bilirubin, Total 0.3 mg/dL (0.2-1.0); CO2 26.7 mmol/L (21.0-32.0); CREATININE 0.99 mg/dL (0.70-1.30); Calcium 8.7 mg/dL (8.5-10.1); Chloride 106 mmol/L (98-107); Glucose 110 mg/dL (74-106); LDH 134 U/L (85-227); Potassium 4.2 mmol/L (3.5-5.1); Sodium 138 mmol/L (136-145); Total Protein 6.3 g/dL (6.4-8.2)
[2020-06-27] MEDS: Normal Saline Flush 10 ML SYR IVP (07:15)
[2020-06-27 07:20] LABS: Abs Immature Grans 0.05 10^3/uL (0.0-0.06); Absolute Basophil Count 0.04 10^3/uL (0.0-0.2); Absolute Eosinophil Count 0.03 10^3/uL (0.0-0.7); Absolute Lymphocyte Count 0.65 10^3/uL (1.2-3.4); Absolute Monocyte Count 0.33 10^3/uL (0.1-0.8); Absolute Neutrophil Count 4.82 10^3/uL (1.2-6.7); Basophils % 0.7; Eosinophils % 0.5; HCT 36.4 % (40.0-50.0); HGB 11.8 g/dL (13.5-17.5); Immature Grans % 0.8; MCH 29.7 pg (27.0-33.0); MCHC 32.4 % (32.0-36.0); MCV 91.7 fL (80-95); MPV 11.2 fL (8.0-11.0); Monocytes % 5.6; Neutrophils % 81.4; Nucleated RBC 0 %; Platelet Count 177 10^3/uL (130-400); RBC 3.97 10^6/uL (4.36-5.78); RDW 15.5 % (11.8-14.1); RDW-SD 51.9 fL; WBC 5.92 10^3/uL (4.4-10.8)
[2020-06-27 07:46] LABS: CREATININE 0.88 mg/dL (0.70-1.30); Glucose 110 mg/dL (74-106); LDH 120 U/L (85-227)
[2020-06-27 07:51] LABS: Calcium 8.7 mg/dL (8.5-10.1)
[2020-06-27 08:05] LABS: ALT 13 U/L (16-63); AST 11 U/L (15-37); Albumin 3.2 g/dL (3.4-5.0); Alkaline Phosphatase 98 U/L (46-116); Bilirubin, Total 0.4 mg/dL (0.2-1.0); Chloride 104 mmol/L (98-107); Potassium 3.2 mmol/L (3.5-5.1); Sodium 140 mmol/L (136-145); Total Protein 6.3 g/dL (6.4-8.2)
[2020-06-27 08:07] LABS: BUN 14 mg/dL (7-18)
[2020-07-10] MEDS: Normal Saline Flush 10 ML SYR IVP (10:19)
[2020-07-10 10:20] LABS: Abs Immature Grans 0.02 10^3/uL (0.0-0.06); Absolute Basophil Count 0.05 10^3/uL (0.0-0.2); Absolute Eosinophil Count 0.02 10^3/uL (0.0-0.7); Absolute Lymphocyte Count 0.71 10^3/uL (1.2-3.4); Absolute Monocyte Count 0.57 10^3/uL (0.1-0.8); Absolute Neutrophil Count 3.08 10^3/uL (1.2-6.7); Basophils % 1.1; Eosinophils % 0.4; HCT 35.5 % (40.0-50.0); HGB 11.5 g/dL (13.5-17.5); Immature Grans % 0.4; MCH 29.9 pg (27.0-33.0); MCHC 32.4 % (32.0-36.0); MCV 92.4 fL (80-95); MPV 10.4 fL (8.0-11.0); Monocytes % 12.8; Neutrophils % 69.3; Nucleated RBC 0 %; Platelet Count 197 10^3/uL (130-400); RBC 3.84 10^6/uL (4.36-5.78); RDW 16.3 % (11.8-14.1); RDW-SD 55.2 fL; WBC 4.45 10^3/uL (4.4-10.8)
[2020-07-10 10:34] LABS: ALT 15 U/L (16-63); AST 10 U/L (15-37); Alkaline Phosphatase 88 U/L (46-116); Anion Gap 4.5 mmol/L (3-11); BUN 16 mg/dL (7-18); Bilirubin, Total 0.2 mg/dL (0.2-1.0); CO2 27.5 mmol/L (21.0-32.0); CREATININE 0.86 mg/dL (0.70-1.30); Calcium 8.4 mg/dL (8.5-10.1); Chloride 106 mmol/L (98-107); Glucose 93 mg/dL (74-106); LDH 114 U/L (85-227); Potassium 4.1 mmol/L (3.5-5.1); Sodium 138 mmol/L (136-145); Total Protein 6.3 g/dL (6.4-8.2)
== END 2020-07-16 23:59 | disposition home or self-care (01) ==
LOC: INF 03:00
PROVIDERS: Internal Medicine Hematology & Oncology; PCP Internal Medicine
DX: C34.90 Malignant neoplasm of unspecified part of unspecified bronchus or lung (principal); Z45.2 Encounter for adjustment and management of vascular access device; C79.89 Secondary malignant neoplasm of other specified sites
CPT/HCPCS: 36591; 80053; 83615; 85025

== ENCOUNTER 2020-08-07 02:38 | Outpatient (RCR) | payer MEDICAID, SELFPAY ==
[2020-07-18 10:55] LABS: Abs Immature Grans 0.03 10^3/uL (0.0-0.06); Absolute Basophil Count 0.05 10^3/uL (0.0-0.2); Absolute Eosinophil Count 0.04 10^3/uL (0.0-0.7); Absolute Lymphocyte Count 0.91 10^3/uL (1.2-3.4); Absolute Monocyte Count 0.46 10^3/uL (0.1-0.8); Absolute Neutrophil Count 4.79 10^3/uL (1.2-6.7); Basophils % 0.8; Eosinophils % 0.6; HCT 37.7 % (40.0-50.0); HGB 12.2 g/dL (13.5-17.5); Immature Grans % 0.5; Lymphocytes % 14.5; MCHC 32.4 % (32.0-36.0); MCV 92.6 fL (80-95); MPV 10.9 fL (8.0-11.0); Monocytes % 7.3; Neutrophils % 76.3; Nucleated RBC 0 %; Platelet Count 191 10^3/uL (130-400); RBC 4.07 10^6/uL (4.36-5.78); RDW 16.5 % (11.8-14.1); RDW-SD 55.9 fL; WBC 6.28 10^3/uL (4.4-10.8)
[2020-07-18] MEDS: Normal Saline Flush 10 ML SYR IVP (10:56)
[2020-07-18 11:09] LABS: ALT 14 U/L (16-63); AST 10 U/L (15-37); Albumin 3.2 g/dL (3.4-5.0); Alkaline Phosphatase 82 U/L (46-116); BUN 14 mg/dL (7-18); Bilirubin, Total 0.3 mg/dL (0.2-1.0); CREATININE 0.9 mg/dL (0.70-1.30); Calcium 8.6 mg/dL (8.5-10.1); Chloride 107 mmol/L (98-107); Glucose 110 mg/dL (74-106); LDH 119 U/L (85-227); Potassium 3.6 mmol/L (3.5-5.1); Sodium 142 mmol/L (136-145); Total Protein 6.3 g/dL (6.4-8.2)
[2020-07-31] MEDS: Normal Saline Flush 10 ML SYR IVP (09:45)
[2020-07-31 09:54] LABS: Abs Immature Grans 0.02 10^3/uL (0.0-0.06); Absolute Basophil Count 0.05 10^3/uL (0.0-0.2); Absolute Eosinophil Count 0.05 10^3/uL (0.0-0.7); Absolute Lymphocyte Count 0.87 10^3/uL (1.2-3.4); Absolute Monocyte Count 0.49 10^3/uL (0.1-0.8); Absolute Neutrophil Count 3.36 10^3/uL (1.2-6.7); HCT 35.7 % (40.0-50.0); HGB 11.6 g/dL (13.5-17.5); Immature Grans % 0.4; MCH 30.1 pg (27.0-33.0); MCHC 32.5 % (32.0-36.0); MCV 92.5 fL (80-95); MPV 10.6 fL (8.0-11.0); Monocytes % 10.1; Neutrophils % 69.5; Nucleated RBC 0 %; Platelet Count 172 10^3/uL (130-400); RBC 3.86 10^6/uL (4.36-5.78); RDW 16.7 % (11.8-14.1); RDW-SD 55.9 fL; WBC 4.84 10^3/uL (4.4-10.8)
[2020-07-31 10:06] LABS: ALT 16 U/L (16-63); AST 13 U/L (15-37); Alkaline Phosphatase 83 U/L (46-116); Anion Gap 6.3 mmol/L (3-11); BUN 11 mg/dL (7-18); Bilirubin, Total 0.2 mg/dL (0.2-1.0); CO2 26.7 mmol/L (21.0-32.0); CREATININE 0.8 mg/dL (0.70-1.30); Calcium 8.2 mg/dL (8.5-10.1); Chloride 107 mmol/L (98-107); Glucose 92 mg/dL (74-106); Potassium 3.5 mmol/L (3.5-5.1); Sodium 140 mmol/L (136-145); Total Protein 5.9 g/dL (6.4-8.2)
[2020-08-07] MEDS: Normal Saline Flush 10 ML SYR IVP (09:30)
[2020-08-07 09:35] LABS: Abs Immature Grans 0.03 10^3/uL (0.0-0.06); Absolute Basophil Count 0.03 10^3/uL (0.0-0.2); Absolute Eosinophil Count 0.02 10^3/uL (0.0-0.7); Absolute Lymphocyte Count 0.79 10^3/uL (1.2-3.4); Absolute Monocyte Count 0.37 10^3/uL (0.1-0.8); Absolute Neutrophil Count 3.65 10^3/uL (1.2-6.7); Basophils % 0.6; Eosinophils % 0.4; HCT 36.3 % (40.0-50.0); Immature Grans % 0.6; Lymphocytes % 16.2; MCH 30.2 pg (27.0-33.0); MCHC 33.1 % (32.0-36.0); MCV 91.2 fL (80-95); MPV 11.2 fL (8.0-11.0); Monocytes % 7.6; Neutrophils % 74.6; Nucleated RBC 0 %; Platelet Count 188 10^3/uL (130-400); RBC 3.98 10^6/uL (4.36-5.78); RDW 16.4 % (11.8-14.1); RDW-SD 54.6 fL; WBC 4.89 10^3/uL (4.4-10.8)
[2020-08-07 09:47] LABS: ALT 13 U/L (16-63); AST 10 U/L (15-37); Albumin 3.1 g/dL (3.4-5.0); Alkaline Phosphatase 81 U/L (46-116); Anion Gap 10.1 mmol/L (3-11); BUN 11 mg/dL (7-18); Bilirubin, Total 0.3 mg/dL (0.2-1.0); CO2 26.9 mmol/L (21.0-32.0); CREATININE 0.8 mg/dL (0.70-1.30); Calcium 8.6 mg/dL (8.5-10.1); Chloride 107 mmol/L (98-107); Glucose 119 mg/dL (74-106); Potassium 3.1 mmol/L (3.5-5.1); Sodium 144 mmol/L (136-145); Total Protein 6.3 g/dL (6.4-8.2)
[2020-08-07 11:09] LABS: Magnesium 1.7 mg/dL (1.8-2.4)
== END 2020-08-13 23:59 | disposition home or self-care (01) ==
LOC: INF 02:38
PROVIDERS: Internal Medicine Hematology & Oncology; Nurse Practitioner Family; PCP Internal Medicine
DX: C79.89 Secondary malignant neoplasm of other specified sites (principal); C34.12 Malignant neoplasm of upper lobe, left bronchus or lung; Z45.2 Encounter for adjustment and management of vascular access device
CPT/HCPCS: 36591; 80053; 83615; 83735; 85025

== ENCOUNTER 2020-08-07 19:25 | Outpatient (CLI) | payer MEDICAID, SELFPAY ==
--- NOTE | 2020-08-07 | DI.RAD_ITS ---
EXAM: XR CHEST 2V PA LATERAL CLINICAL HISTORY: PANCOAST TUMOR LT LUNG,C34.12,VOMITING,DIARRHEA,NEW RALES AND RHONCHI LT SI. TECHNIQUE: 2D digital imaging was performed. COMPARISON: No exams were available for comparison FINDINGS: Heart size is normal. The mediastinum is not widened. Distal tip of the right supraclinoid in Port-A-Cath is in the lower SVC in satisfactory position. There are no infiltrates nor pleural effusions. No ominous pulmonary nodules. No pneumothorax. IMPRESSION: No acute pulmonary findings. DATA REPOSITORY: RADIATION DOSE DELIVERED:
== END 2020-08-07 19:26 ==
LOC: DI 08-10 19:25
PROVIDERS: PCP Internal Medicine; Visit Provider Nurse Practitioner Family
DX: C34.12 Malignant neoplasm of upper lobe, left bronchus or lung (principal); R09.89 Other specified symptoms and signs involving the circulatory and respiratory systems
CPT/HCPCS: 71046

== ENCOUNTER 2020-08-09 02:17 | Outpatient (CLI) | payer MEDICAID, SELFPAY ==
[2020-08-10 11:33] LABS: COVID-19 RT-PCR UVMMC Result Negative (Negative)
== END 2020-08-09 02:18 | disposition home or self-care (01) ==
LOC: LBO 02:18
PROVIDERS: PCP Internal Medicine; Visit Provider Nurse Practitioner Family
DX: Z20.822 Contact with and (suspected) exposure to COVID-19 (principal)
CPT/HCPCS: U0003

== ENCOUNTER 2020-09-04 02:57 | Outpatient (RCR) | payer MEDICAID, SELFPAY ==
[2020-08-14] MEDS: Normal Saline Flush 10 ML SYR IVP (10:54)
[2020-08-14 11:04] LABS: Abs Immature Grans 0.02 10^3/uL (0.0-0.06); Absolute Basophil Count 0.04 10^3/uL (0.0-0.2); Absolute Eosinophil Count 0.05 10^3/uL (0.0-0.7); Absolute Lymphocyte Count 0.94 10^3/uL (1.2-3.4); Absolute Monocyte Count 0.58 10^3/uL (0.1-0.8); Absolute Neutrophil Count 4.51 10^3/uL (1.2-6.7); Basophils % 0.7; Eosinophils % 0.8; HCT 36.4 % (40.0-50.0); HGB 11.8 g/dL (13.5-17.5); Immature Grans % 0.3; Lymphocytes % 15.3; MCH 29.9 pg (27.0-33.0); MCHC 32.4 % (32.0-36.0); MCV 92.2 fL (80-95); MPV 11.1 fL (8.0-11.0); Monocytes % 9.4; Neutrophils % 73.5; Nucleated RBC 0 %; Platelet Count 185 10^3/uL (130-400); RBC 3.95 10^6/uL (4.36-5.78); RDW 16.7 % (11.8-14.1); WBC 6.14 10^3/uL (4.4-10.8)
[2020-08-14 11:15] LABS: ALT 12 U/L (16-63); AST 10 U/L (15-37); Albumin 3.2 g/dL (3.4-5.0); Alkaline Phosphatase 86 U/L (46-116); Anion Gap 9.4 mmol/L (3-11); BUN 12 mg/dL (7-18); Bilirubin, Total 0.4 mg/dL (0.2-1.0); CO2 25.6 mmol/L (21.0-32.0); CREATININE 0.8 mg/dL (0.70-1.30); Calcium 8.4 mg/dL (8.5-10.1); Chloride 107 mmol/L (98-107); Glucose 95 mg/dL (74-106); LDH 113 U/L (85-227); Potassium 3.1 mmol/L (3.5-5.1); Sodium 142 mmol/L (136-145); Total Protein 6.1 g/dL (6.4-8.2)
[2020-08-28] MEDS: Normal Saline Flush 10 ML SYR IVP (07:35)
[2020-08-28 07:43] LABS: Abs Immature Grans 0.03 10^3/uL (0.0-0.06); Absolute Basophil Count 0.05 10^3/uL (0.0-0.2); Absolute Eosinophil Count 0.07 10^3/uL (0.0-0.7); Absolute Lymphocyte Count 0.94 10^3/uL (1.2-3.4); Absolute Neutrophil Count 5.02 10^3/uL (1.2-6.7); Basophils % 0.7; HCT 36.9 % (40.0-50.0); HGB 11.8 g/dL (13.5-17.5); Immature Grans % 0.4; Lymphocytes % 13.8; MCH 30.1 pg (27.0-33.0); MCV 94.1 fL (80-95); MPV 10.6 fL (8.0-11.0); Monocytes % 10.3; Neutrophils % 73.8; Nucleated RBC 0 %; Platelet Count 264 10^3/uL (130-400); RBC 3.92 10^6/uL (4.36-5.78); RDW-SD 58.1 fL; WBC 6.81 10^3/uL (4.4-10.8)
[2020-08-28 07:57] LABS: ALT 26 U/L (16-63); AST 17 U/L (15-37); Alkaline Phosphatase 114 U/L (46-116); Anion Gap 7.8 mmol/L (3-11); BUN 16 mg/dL (7-18); Bilirubin, Total 0.2 mg/dL (0.2-1.0); CO2 29.2 mmol/L (21.0-32.0); CREATININE 1.2 mg/dL (0.70-1.30); Calcium 8.2 mg/dL (8.5-10.1); Chloride 105 mmol/L (98-107); Glucose 101 mg/dL (74-106); Potassium 3.9 mmol/L (3.5-5.1); Sodium 142 mmol/L (136-145); Total Protein 6.4 g/dL (6.4-8.2)
[2020-09-04] MEDS: Normal Saline Flush 10 ML SYR IVP (10:44)
[2020-09-04 10:49] LABS: Abs Immature Grans 0.03 10^3/uL (0.0-0.06); Absolute Basophil Count 0.05 10^3/uL (0.0-0.2); Absolute Eosinophil Count 0.03 10^3/uL (0.0-0.7); Absolute Lymphocyte Count 1.08 10^3/uL (1.2-3.4); Absolute Neutrophil Count 5.09 10^3/uL (1.2-6.7); Basophils % 0.7; Eosinophils % 0.4; HCT 35.3 % (40.0-50.0); HGB 11.5 g/dL (13.5-17.5); Immature Grans % 0.4; Lymphocytes % 16.2; MCH 30.1 pg (27.0-33.0); MCHC 32.6 % (32.0-36.0); MCV 92.4 fL (80-95); MPV 10.9 fL (8.0-11.0); Neutrophils % 76.3; Nucleated RBC 0 %; Platelet Count 230 10^3/uL (130-400); RBC 3.82 10^6/uL (4.36-5.78); RDW 16.7 % (11.8-14.1); RDW-SD 56.3 fL; WBC 6.68 10^3/uL (4.4-10.8)
[2020-09-04 11:02] LABS: ALT 18 U/L (16-63); AST 14 U/L (15-37); Albumin 3.2 g/dL (3.4-5.0); Alkaline Phosphatase 94 U/L (46-116); Anion Gap 6.8 mmol/L (3-11); BUN 19 mg/dL (7-18); Bilirubin, Total 0.4 mg/dL (0.2-1.0); CO2 27.2 mmol/L (21.0-32.0); CREATININE 0.9 mg/dL (0.70-1.30); Calcium 8.6 mg/dL (8.5-10.1); Chloride 105 mmol/L (98-107); Glucose 96 mg/dL (74-106); Potassium 3.8 mmol/L (3.5-5.1); Sodium 139 mmol/L (136-145); Total Protein 6.6 g/dL (6.4-8.2)
== END 2020-09-13 23:59 | disposition home or self-care (01) ==
LOC: INF 02:57
PROVIDERS: Internal Medicine Hematology & Oncology; PCP Internal Medicine
DX: C34.90 Malignant neoplasm of unspecified part of unspecified bronchus or lung (principal); Z45.2 Encounter for adjustment and management of vascular access device
CPT/HCPCS: 36591; 80053; 83615; 85025

== ENCOUNTER 2020-10-09 02:52 | Outpatient (RCR) | payer MEDICAID, SELFPAY ==
[2020-09-20 07:14] LABS: Abs Immature Grans 0.01 10^3/uL (0.0-0.06); Absolute Basophil Count 0.04 10^3/uL (0.0-0.2); Absolute Eosinophil Count 0.02 10^3/uL (0.0-0.7); Absolute Lymphocyte Count 0.63 10^3/uL (1.2-3.4); Absolute Monocyte Count 0.33 10^3/uL (0.1-0.8); Absolute Neutrophil Count 3.59 10^3/uL (1.2-6.7); Basophils % 0.9; Eosinophils % 0.4; HCT 36.6 % (40.0-50.0); HGB 11.9 g/dL (13.5-17.5); Immature Grans % 0.2; Lymphocytes % 13.6; MCH 29.9 pg (27.0-33.0); MCHC 32.5 % (32.0-36.0); MPV 11.4 fL (8.0-11.0); Monocytes % 7.1; Neutrophils % 77.8; Nucleated RBC 0 %; Platelet Count 204 10^3/uL (130-400); RBC 3.98 10^6/uL (4.36-5.78); RDW 16.5 % (11.8-14.1); RDW-SD 55.7 fL; WBC 4.62 10^3/uL (4.4-10.8)
[2020-09-20 07:30] LABS: ALT 16 U/L (16-63); AST 14 U/L (15-37); Alkaline Phosphatase 105 U/L (46-116); Anion Gap 7.7 mmol/L (3-11); BUN 9 mg/dL (7-18); Bilirubin, Total 0.4 mg/dL (0.2-1.0); CO2 29.3 mmol/L (21.0-32.0); CREATININE 0.8 mg/dL (0.70-1.30); Calcium 8.7 mg/dL (8.5-10.1); Chloride 105 mmol/L (98-107); Glucose 130 mg/dL (74-106); Sodium 142 mmol/L (136-145)
[2020-09-20] MEDS: Normal Saline Flush 10 ML SYR IVP (08:38)
[2020-10-02] MEDS: Normal Saline Flush 10 ML SYR IVP (11:52)
[2020-10-02 12:03] LABS: Abs Immature Grans 0.01 10^3/uL (0.0-0.06); Absolute Basophil Count 0.05 10^3/uL (0.0-0.2); Absolute Monocyte Count 0.44 10^3/uL (0.1-0.8); Absolute Neutrophil Count 2.67 10^3/uL (1.2-6.7); Basophils % 1.3; Eosinophils % 2.5; HCT 34.6 % (40.0-50.0); HGB 11.2 g/dL (13.5-17.5); Immature Grans % 0.3; Lymphocytes % 17.6; MCH 30.2 pg (27.0-33.0); MCHC 32.4 % (32.0-36.0); MCV 93.3 fL (80-95); MPV 11.2 fL (8.0-11.0); Monocytes % 11.1; Neutrophils % 67.2; Nucleated RBC 0 %; Platelet Count 180 10^3/uL (130-400); RBC 3.71 10^6/uL (4.36-5.78); RDW 17.2 % (11.8-14.1); RDW-SD 58.9 fL; WBC 3.97 10^3/uL (4.4-10.8)
[2020-10-02 12:25] LABS: ALT 13 U/L (16-63); AST 11 U/L (15-37); Albumin 3.1 g/dL (3.4-5.0); Alkaline Phosphatase 94 U/L (46-116); BUN 20 mg/dL (7-18); Bilirubin, Total 0.3 mg/dL (0.2-1.0); CREATININE 0.9 mg/dL (0.70-1.30); Calcium 8.6 mg/dL (8.5-10.1); Chloride 107 mmol/L (98-107); Glucose 112 mg/dL (74-106); Potassium 3.6 mmol/L (3.5-5.1); Sodium 143 mmol/L (136-145); Total Protein 6.2 g/dL (6.4-8.2)
[2020-10-09 12:06] LABS: Abs Immature Grans 0.01 10^3/uL (0.0-0.06); Absolute Basophil Count 0.05 10^3/uL (0.0-0.2); Absolute Eosinophil Count 0.02 10^3/uL (0.0-0.7); Absolute Lymphocyte Count 0.89 10^3/uL (1.2-3.4); Absolute Monocyte Count 0.41 10^3/uL (0.1-0.8); Absolute Neutrophil Count 3.58 10^3/uL (1.2-6.7); Eosinophils % 0.4; HCT 35.6 % (40.0-50.0); HGB 11.6 g/dL (13.5-17.5); Immature Grans % 0.2; Lymphocytes % 17.9; MCH 30.5 pg (27.0-33.0); MCHC 32.6 % (32.0-36.0); MCV 93.7 fL (80-95); MPV 11.4 fL (8.0-11.0); Monocytes % 8.3; Neutrophils % 72.2; Nucleated RBC 0 %; Platelet Count 210 10^3/uL (130-400); RDW 16.9 % (11.8-14.1); RDW-SD 57.5 fL; WBC 4.96 10^3/uL (4.4-10.8)
[2020-10-09 12:18] LABS: ALT 16 U/L (16-63); AST 11 U/L (15-37); Albumin 3.4 g/dL (3.4-5.0); Alkaline Phosphatase 95 U/L (46-116); Anion Gap 8.8 mmol/L (3-11); BUN 18 mg/dL (7-18); Bilirubin, Total 0.2 mg/dL (0.2-1.0); CO2 26.2 mmol/L (21.0-32.0); CREATININE 0.9 mg/dL (0.70-1.30); Calcium 8.5 mg/dL (8.5-10.1); Chloride 107 mmol/L (98-107); Glucose 105 mg/dL (74-106); Potassium 3.9 mmol/L (3.5-5.1); Sodium 142 mmol/L (136-145); Total Protein 6.5 g/dL (6.4-8.2)
[2020-10-09] MEDS: Normal Saline Flush 10 ML SYR IVP (12:22)
== END 2020-10-13 23:59 | disposition home or self-care (01) ==
LOC: INF 02:52
PROVIDERS: Internal Medicine Hematology & Oncology; PCP Internal Medicine; Visit Provider Nurse Practitioner Family
DX: C34.90 Malignant neoplasm of unspecified part of unspecified bronchus or lung (principal); Z45.2 Encounter for adjustment and management of vascular access device
CPT/HCPCS: 36591; 80053; 85025

== ENCOUNTER 2020-11-15 09:42 | Outpatient (CLI) | payer MEDICAID, SELFPAY ==
[2020-11-15] MEDS: Normal Saline Flush 10 ML SYR IVP (15:20)
[2020-11-15] MEDS: Gadoterate meglumine 20 ML VIAL 11 ML IVP (15:21)
--- NOTE | 2020-11-15 16:05 | DI.MRI_ITS ---
Exam(s) MR LUMBAR SPINE WO/W EXAM: MR LUMBAR SPINE WO/W CLINICAL HISTORY: SEVERE PAIN, R52,LUNG CA, ? CORD COMPRESSION,R52,C34.90. TECHNIQUE: Multiplanar multisequence MRI of the Lumbar Spine was performed. CONTRAST MATERIAL: IV Contrast: mL of Dotarem contrast administered. COMPARISON: No exams were available for comparison FINDINGS: Bones: The last intervertebral disc space is designated the L5/S1 level for the numbering purpose of this examination. The vertebral body heights are well maintained. There is L5 spondylolysis and grad e 2 spondylolisthesis of L5 on S1. Degenerative changes are present throughout the lumbar spine with disc space narrowing at L5-S1. There is hypointense signal seen on the T1 weighted images involving the left vertebral body and ortiz sverse process of L1, the left aspect of the L2 vertebral body the left pedicle and left transverse p rocess, the left aspect of the L3 vertebral body the left pedicle and left transverse process, and th e left transverse process of L4. These findings show enhancement following contrast administration. This likely reflects metastatic disease. There is also enhancement involving the left iliopsoas mus donaldo and the left paraspinal muscles beginning at the L1 level and extending inferiorly to L4. There are 2 enhancing masses associated with the right iliac bone. The larger is anterior and measures 2.6 x 1.5 cm. The smaller is posterior to the iliac bone and measures 1.9 x 1.4 cm. There is also abno rmal signal and enhancement of the visualized portion of the right iliac bone. Cord: The conus tip ends at the L1 level. It is of normal size and signal intensity. No evidence of cord compression. T12-L1: No disc herniations or bulges are present. No central spinal canal or neural foraminal stenos is. L1-2: No disc herniations or bulges are present. No central spinal canal or neural foraminal stenosis . L2-3: No significant central spinal canal stenosis. No significant right neural foraminal stenosis. Moderate left neural foraminal stenosis is present. L3-4: There is a mild diffuse disc bulge. No significant central spinal canal stenosis is seen. The re is moderate left neural foraminal narrowing. No significant right neural foraminal stenosis. L4-5: There does appear to be a small central disc herniation. No significant central spinal canal s tenosis is seen. Degenerative facet arthropathy is present. There is moderate to severe bilateral n eural foraminal stenosis. L5-S1: No significant central spinal canal stenosis. There are hypertrophic changes of the facets. There is marked bilateral neural foraminal stenosis. Soft tissues: The visualized SI joints and sacrum are well maintained. The paraspinal soft tissues ar e unremarkable. There is no evidence of suspicious enhancement. IMPRESSION: 1. Findings of metastatic disease involving the lumbar spine in adjacent soft tissues. 2. No significant central spinal canal stenosis. No cord compression. 3. Multilevel degenerative changes. This in conjunction with the metastatic disease contribute to ca use left sided neural foraminal stenosis. The findings are most marked at the L4-5 and L5-S1 disc le vels. DATA REPOSITORY:
--- NOTE | 2020-11-15 16:35 | DI.VRAD_ITS ---
PROCEDURE INFORMATION: Exam: MR Lumbar Spine Without and With Contrast Exam date and time: 11/15/2020 3:41 PM Age: 55 years old Clinical indication: Patient HX: HX of lung cancer, severe low back pain. Increasing pain ? cord compression TECHNIQUE: Imaging protocol: Multiplanar magnetic resonance images of the lumbar spine without and with intravenous contrast. Contrast material: DOTAREM; Contrast volume: 11 ml; Contrast route: INTRAVENOUS (IV); COMPARISON: PT PET/CT WHOLE BODY 09/01/2017 12:17 PM FINDINGS: Vertebrae: Grade 2 anterolisthesis of L5 over S1. Spinal cord: Abnormal stir signal in the L1, L2, L3 , L4 with enhancement, likely representing metastatic disease. No cord compression. L1-L2: Disc bulge. No spinal canal stenosis. No neural foraminal narrowing. L2-L3: Disc bulge. No spinal canal stenosis. Mild left neural foraminal narrowing. L3-L4: Disc bulge. No spinal canal stenosis. Moderate left neural foraminal narrowing. L4-L5: Disc bulge. No spinal canal stenosis. Severe bilateral neural foraminal narrowing. L5-S1: Uncovering of disc by grade 2 anterolisthesis of L5 over S1. No spinal canal stenosis. Severe bilateral neural foraminal narrowing. Soft tissues: Unremarkable. IMPRESSION: Metastatic disease involving the L1 through L5 vertebra. No spinal canal stenosis. Multilevel degenerative disc and the neural foraminal narrowing. Mild left neural foraminal narrowing at L2-L3:, moderate left L3-L4, severe bilateral L4-L5 and L5-S1. Grade 2 anterolisthesis of L5 over S1. Dictated and Authenticated by: Perry Gore MD. Ordering:DWAYNE Harrington MD
== END 2020-11-15 10:02 ==
PROVIDERS: PCP Internal Medicine; Visit Provider Nurse Practitioner Adult Health
DX: C79.51 Secondary malignant neoplasm of bone (principal); M51.37 Other intervertebral disc degeneration, lumbosacral region; C34.91 Malignant neoplasm of unspecified part of right bronchus or lung; C34.12 Malignant neoplasm of upper lobe, left bronchus or lung; C79.89 Secondary malignant neoplasm of other specified sites
CPT/HCPCS: 72158

== ENCOUNTER 2020-12-13 02:28 | Outpatient (RCR) | payer MEDICAID, SELFPAY ==
[2020-11-22] MEDS: Normal Saline Flush 10 ML SYR IVP (07:18)
[2020-11-22 07:24] LABS: Abs Immature Grans 0.03 10^3/uL (0.0-0.06); Absolute Basophil Count 0.04 10^3/uL (0.0-0.2); Absolute Eosinophil Count 0.11 10^3/uL (0.0-0.7); Absolute Lymphocyte Count 1.06 10^3/uL (1.2-3.4); Absolute Monocyte Count 0.52 10^3/uL (0.1-0.8); Absolute Neutrophil Count 4.77 10^3/uL (1.2-6.7); Basophils % 0.6; Eosinophils % 1.7; HCT 45.2 % (40.0-50.0); HGB 14.6 g/dL (13.5-17.5); Immature Grans % 0.5; Lymphocytes % 16.2; MCH 30.4 pg (27.0-33.0); MCHC 32.3 % (32.0-36.0); MPV 10.4 fL (8.0-11.0); Nucleated RBC 0 %; Platelet Count 207 10^3/uL (130-400); RBC 4.81 10^6/uL (4.36-5.78); RDW 15.9 % (11.8-14.1); RDW-SD 55.5 fL; WBC 6.53 10^3/uL (4.4-10.8)
[2020-11-22 09:36] LABS: ALT 14 U/L (16-63); AST 8 U/L (15-37); Albumin 3.7 g/dL (3.4-5.0); Alkaline Phosphatase 121 U/L (46-116); Anion Gap 6.8 mmol/L (3-11); BUN 26 mg/dL (7-18); Bilirubin, Total 0.3 mg/dL (0.2-1.0); CO2 29.2 mmol/L (21.0-32.0); CREATININE 1.1 mg/dL (0.70-1.30); Chloride 105 mmol/L (98-107); Glucose 86 mg/dL (74-106); LDH 141 U/L (85-227); Potassium 4.1 mmol/L (3.5-5.1); Sodium 141 mmol/L (136-145)
[2020-11-29] MEDS: Normal Saline Flush 10 ML SYR IVP (07:52)
[2020-11-29 07:56] LABS: HGB 12.6 g/dL (13.5-17.5); MCH 29.8 pg (27.0-33.0); MCHC 32.3 % (32.0-36.0); MCV 92.2 fL (80-95); Nucleated RBC 0 %; Platelet Count 131 10^3/uL (130-400); RBC 4.23 10^6/uL (4.36-5.78); RDW 15.5 % (11.8-14.1); RDW-SD 52.3 fL; WBC 2.11 10^3/uL (4.4-10.8)
[2020-11-29 08:07] LABS: ALT 14 U/L (16-63); AST 10 U/L (15-37); Albumin 3.3 g/dL (3.4-5.0); Alkaline Phosphatase 104 U/L (46-116); Anion Gap 6.2 mmol/L (3-11); BUN 21 mg/dL (7-18); Bilirubin, Total 0.3 mg/dL (0.2-1.0); CO2 29.8 mmol/L (21.0-32.0); Calcium 8.6 mg/dL (8.5-10.1); Chloride 107 mmol/L (98-107); Glucose 87 mg/dL (74-106); Potassium 3.6 mmol/L (3.5-5.1); Sodium 143 mmol/L (136-145); Total Protein 6.4 g/dL (6.4-8.2)
[2020-11-29 08:15] LABS: Absolute Lymphocyte Count 0.53 10^3/uL (1.2-3.4); Absolute Monocyte Count 0.13 10^3/uL (0.1-0.8); Absolute Neutrophil Count 1.37 10^3/uL (1.2-6.7)
[2020-11-29 08:16] LABS: Absolute Eosinophil Count 0.02 10^3/uL (0.0-0.7); Diff Comment Manual Differential; RBC Morphology Normal
[2020-12-13] MEDS: Normal Saline Flush 10 ML SYR IVP (07:43)
[2020-12-13 07:49] LABS: Abs Immature Grans 0.02 10^3/uL (0.0-0.06); HCT 36.6 % (40.0-50.0); HGB 11.7 g/dL (13.5-17.5); MCH 30.5 pg (27.0-33.0); MCV 95.6 fL (80-95); MPV 10.7 fL (8.0-11.0); Nucleated RBC 0 %; Platelet Count 304 10^3/uL (130-400); RBC 3.83 10^6/uL (4.36-5.78); RDW 16.7 % (11.8-14.1); RDW-SD 57.4 fL
[2020-12-13 08:04] LABS: ALT 14 U/L (16-63); AST 10 U/L (15-37); Albumin 3.1 g/dL (3.4-5.0); Alkaline Phosphatase 89 U/L (46-116); Anion Gap 8.6 mmol/L (3-11); BUN 24 mg/dL (7-18); Bilirubin, Total 0.2 mg/dL (0.2-1.0); CO2 27.4 mmol/L (21.0-32.0); CREATININE 1.1 mg/dL (0.70-1.30); Calcium 8.5 mg/dL (8.5-10.1); Chloride 109 mmol/L (98-107); Glucose 86 mg/dL (74-106); Potassium 3.7 mmol/L (3.5-5.1); Sodium 145 mmol/L (136-145); Total Protein 6.1 g/dL (6.4-8.2)
[2020-12-13 08:42] LABS: Absolute Lymphocyte Count 1.35 10^3/uL (1.2-3.4); Absolute Monocyte Count 0.18 10^3/uL (0.1-0.8); Absolute Neutrophil Count 2.97 10^3/uL (1.2-6.7); Atypical Lymphocytes % 3; Bands % 0
[2020-12-13 08:43] LABS: Diff Comment Manual Differential; RBC Morphology Normal
== END 2020-12-13 23:59 | disposition home or self-care (01) ==
LOC: INF 02:28
PROVIDERS: PCP Internal Medicine; Visit Provider Internal Medicine Hematology & Oncology
DX: C34.90 Malignant neoplasm of unspecified part of unspecified bronchus or lung (principal)
CPT/HCPCS: 36415; 80053; 83615; 85025

== ENCOUNTER 2021-01-08 01:38 | Outpatient (RCR) | payer MEDICAID, SELFPAY ==
[2021-01-03 07:59] LABS: Abs Immature Grans 0.05 10^3/uL (0.0-0.06); Absolute Basophil Count 0.01 10^3/uL (0.0-0.2); Absolute Lymphocyte Count 0.54 10^3/uL (1.2-3.4); Absolute Monocyte Count 0.28 10^3/uL (0.1-0.8); Absolute Neutrophil Count 4.54 10^3/uL (1.2-6.7); Basophils % 0.2; HCT 34.6 % (40.0-50.0); HGB 11.3 g/dL (13.5-17.5); Immature Grans % 0.9; MCH 30.1 pg (27.0-33.0); MCHC 32.7 % (32.0-36.0); MCV 92.3 fL (80-95); MPV 10.5 fL (8.0-11.0); Monocytes % 5.2; Neutrophils % 83.7; Nucleated RBC 0 %; Platelet Count 159 10^3/uL (130-400); RBC 3.75 10^6/uL (4.36-5.78); RDW 16.2 % (11.8-14.1); RDW-SD 54.3 fL; WBC 5.42 10^3/uL (4.4-10.8)
[2021-01-03 08:15] LABS: ALT 12 U/L (16-63); AST 11 U/L (15-37); Albumin 2.7 g/dL (3.4-5.0); Alkaline Phosphatase 69 U/L (46-116); Anion Gap 4.9 mmol/L (3-11); BUN 22 mg/dL (7-18); Bilirubin, Total 0.3 mg/dL (0.2-1.0); CO2 29.1 mmol/L (21.0-32.0); Calcium 8.7 mg/dL (8.5-10.1); Chloride 106 mmol/L (98-107); Glucose 118 mg/dL (74-106); Potassium 3.7 mmol/L (3.5-5.1); Sodium 140 mmol/L (136-145); Total Protein 6.1 g/dL (6.4-8.2)
[2021-01-03] MEDS: Normal Saline Flush 10 ML SYR IVP (08:18)
[2021-01-08] MEDS: Heparin 500 UNITS/5 ML SYRINGE IV (07:14)
[2021-01-08] MEDS: Normal Saline Flush 10 ML SYR IVP (07:14)
[2021-01-08 07:28] LABS: Abs Immature Grans 0.15 10^3/uL (0.0-0.06); Absolute Basophil Count 0.03 10^3/uL (0.0-0.2); Absolute Eosinophil Count 0.11 10^3/uL (0.0-0.7); Absolute Monocyte Count 0.89 10^3/uL (0.1-0.8); Basophils % 0.2; Eosinophils % 0.8; HCT 33.7 % (40.0-50.0); Immature Grans % 1.1; Lymphocytes % 5.1; MCH 30.5 pg (27.0-33.0); MCHC 32.6 % (32.0-36.0); MCV 93.4 fL (80-95); MPV 10.3 fL (8.0-11.0); Monocytes % 6.5; Neutrophils % 86.3; Nucleated RBC 0 %; Platelet Count 195 10^3/uL (130-400); RBC 3.61 10^6/uL (4.36-5.78); RDW 17.3 % (11.8-14.1); RDW-SD 57.3 fL; WBC 13.62 10^3/uL (4.4-10.8)
[2021-01-08 07:31] LABS: Absolute Lymphocyte Count 0.69 10^3/uL (1.2-3.4); Absolute Neutrophil Count 11.75 10^3/uL (1.2-6.7)
[2021-01-08 07:43] LABS: ALT 14 U/L (16-63); AST 9 U/L (15-37); Albumin 2.7 g/dL (3.4-5.0); Alkaline Phosphatase 77 U/L (46-116); Anion Gap 6.6 mmol/L (3-11); BUN 18 mg/dL (7-18); Bilirubin, Total 0.2 mg/dL (0.2-1.0); CO2 30.4 mmol/L (21.0-32.0); CREATININE 0.9 mg/dL (0.70-1.30); Calcium 8.1 mg/dL (8.5-10.1); Chloride 105 mmol/L (98-107); Glucose 112 mg/dL (74-106); Potassium 3.1 mmol/L (3.5-5.1); Sodium 142 mmol/L (136-145); Total Protein 5.9 g/dL (6.4-8.2)
== END 2021-01-13 23:59 | disposition home or self-care (01) ==
LOC: INF 01:38
PROVIDERS: PCP Internal Medicine; Visit Provider Internal Medicine Hematology & Oncology
DX: C34.12 Malignant neoplasm of upper lobe, left bronchus or lung (principal); Z45.2 Encounter for adjustment and management of vascular access device
CPT/HCPCS: 36591; 80053; 85025

== ENCOUNTER 2021-02-12 07:15 | Outpatient (RCR) | payer MEDICAID, SELFPAY ==
[2021-01-15] MEDS: Normal Saline Flush 10 ML SYR IVP (14:20)
[2021-01-15 14:46] LABS: Abs Immature Grans 0.02 10^3/uL (0.0-0.06); HCT 33.4 % (40.0-50.0); HGB 10.8 g/dL (13.5-17.5); MCH 30.4 pg (27.0-33.0); MCHC 32.3 % (32.0-36.0); MCV 94.1 fL (80-95); MPV 9.7 fL (8.0-11.0); Nucleated RBC 0 %; RBC 3.55 10^6/uL (4.36-5.78); RDW 16.6 % (11.8-14.1); RDW-SD 57.1 fL; WBC 3.74 10^3/uL (4.4-10.8)
[2021-01-15 15:01] LABS: ALT 14 U/L (16-63); AST 10 U/L (15-37); Albumin 2.7 g/dL (3.4-5.0); Alkaline Phosphatase 83 U/L (46-116); BUN 17 mg/dL (7-18); Bilirubin, Total 0.2 mg/dL (0.2-1.0); CREATININE 0.9 mg/dL (0.70-1.30); Calcium 8.7 mg/dL (8.5-10.1); Chloride 105 mmol/L (98-107); Glucose 96 mg/dL (74-106); Sodium 141 mmol/L (136-145); Total Protein 6.5 g/dL (6.4-8.2)
[2021-01-15 15:06] LABS: Absolute Basophil Count 0.07 10^3/uL (0.0-0.2); Absolute Eosinophil Count 0.04 10^3/uL (0.0-0.7); Absolute Lymphocyte Count 0.86 10^3/uL (1.2-3.4); Absolute Monocyte Count 0.19 10^3/uL (0.1-0.8); Absolute Neutrophil Count 2.58 10^3/uL (1.2-6.7); Anisocytosis 1+; Atypical Lymphocytes % 1; Diff Comment Manual Differential; Platelet Count 326 10^3/uL (130-400)
[2021-01-29] MEDS: Normal Saline Flush 10 ML SYR IVP (08:14)
[2021-01-29 08:31] LABS: Abs Immature Grans 0.03 10^3/uL (0.0-0.06); Absolute Basophil Count 0.06 10^3/uL (0.0-0.2); Absolute Eosinophil Count 0.12 10^3/uL (0.0-0.7); Absolute Lymphocyte Count 0.62 10^3/uL (1.2-3.4); Absolute Monocyte Count 0.62 10^3/uL (0.1-0.8); Absolute Neutrophil Count 5.43 10^3/uL (1.2-6.7); Basophils % 0.9; Eosinophils % 1.7; HCT 33.7 % (40.0-50.0); HGB 10.6 g/dL (13.5-17.5); Immature Grans % 0.4; MCHC 31.5 % (32.0-36.0); MCV 95.5 fL (80-95); MPV 10.5 fL (8.0-11.0); Nucleated RBC 0 %; Platelet Count 312 10^3/uL (130-400); RBC 3.53 10^6/uL (4.36-5.78); RDW 17.3 % (11.8-14.1); RDW-SD 59.1 fL; WBC 6.88 10^3/uL (4.4-10.8)
[2021-01-29 08:44] LABS: ALT 12 U/L (16-63); AST 10 U/L (15-37); Albumin 2.8 g/dL (3.4-5.0); Alkaline Phosphatase 94 U/L (46-116); Anion Gap 6.2 mmol/L (3-11); BUN 17 mg/dL (7-18); Bilirubin, Total 0.2 mg/dL (0.2-1.0); CO2 27.8 mmol/L (21.0-32.0); Calcium 8.3 mg/dL (8.5-10.1); Chloride 109 mmol/L (98-107); Glucose 102 mg/dL (74-106); Potassium 4.1 mmol/L (3.5-5.1); Sodium 143 mmol/L (136-145); Total Protein 6.1 g/dL (6.4-8.2)
[2021-02-12] MEDS: Normal Saline Flush 10 ML SYR IVP (08:13)
[2021-02-12 08:19] LABS: Abs Immature Grans 0.02 10^3/uL (0.0-0.06); Absolute Basophil Count 0.04 10^3/uL (0.0-0.2); Absolute Eosinophil Count 0.08 10^3/uL (0.0-0.7); Absolute Lymphocyte Count 0.64 10^3/uL (1.2-3.4); Absolute Monocyte Count 0.75 10^3/uL (0.1-0.8); Absolute Neutrophil Count 6.54 10^3/uL (1.2-6.7); Basophils % 0.5; HCT 32.9 % (40.0-50.0); HGB 10.4 g/dL (13.5-17.5); Immature Grans % 0.2; Lymphocytes % 7.9; MCH 30.2 pg (27.0-33.0); MCHC 31.6 % (32.0-36.0); MCV 95.6 fL (80-95); MPV 10.9 fL (8.0-11.0); Monocytes % 9.3; Neutrophils % 81.1; Nucleated RBC 0 %; Platelet Count 151 10^3/uL (130-400); RBC 3.44 10^6/uL (4.36-5.78); RDW 18.1 % (11.8-14.1); RDW-SD 62.2 fL; WBC 8.07 10^3/uL (4.4-10.8)
[2021-02-12 08:35] LABS: ALT 12 U/L (16-63); AST 9 U/L (15-37); Albumin 2.8 g/dL (3.4-5.0); Alkaline Phosphatase 92 U/L (46-116); Anion Gap 7.7 mmol/L (3-11); BUN 16 mg/dL (7-18); Bilirubin, Total 0.2 mg/dL (0.2-1.0); CO2 26.3 mmol/L (21.0-32.0); CREATININE 0.8 mg/dL (0.70-1.30); Chloride 107 mmol/L (98-107); Glucose 96 mg/dL (74-106); Potassium 3.6 mmol/L (3.5-5.1); Sodium 141 mmol/L (136-145)
== END 2021-02-13 23:59 | disposition home or self-care (01) ==
LOC: INF 07:15
PROVIDERS: PCP Internal Medicine; Visit Provider Internal Medicine Hematology & Oncology
DX: C34.12 Malignant neoplasm of upper lobe, left bronchus or lung (principal); Z45.2 Encounter for adjustment and management of vascular access device
CPT/HCPCS: 36591; 80053; 85025

== ENCOUNTER 2021-03-12 02:41 | Outpatient (RCR) | payer MEDICAID, SELFPAY ==
[2021-02-20] MEDS: Normal Saline Flush 10 ML SYR IVP (07:24)
[2021-02-20 07:26] LABS: Abs Immature Grans 0.06 10^3/uL (0.0-0.06); Absolute Basophil Count 0.04 10^3/uL (0.0-0.2); Absolute Eosinophil Count 0.14 10^3/uL (0.0-0.7); Absolute Lymphocyte Count 0.84 10^3/uL (1.2-3.4); Absolute Monocyte Count 0.48 10^3/uL (0.1-0.8); Absolute Neutrophil Count 4.53 10^3/uL (1.2-6.7); Basophils % 0.7; Eosinophils % 2.3; HCT 32.4 % (40.0-50.0); HGB 10.2 g/dL (13.5-17.5); Lymphocytes % 13.8; MCH 30.4 pg (27.0-33.0); MCHC 31.5 % (32.0-36.0); MCV 96.7 fL (80-95); MPV 10.8 fL (8.0-11.0); Monocytes % 7.9; Neutrophils % 74.3; Nucleated RBC 0 %; Platelet Count 255 10^3/uL (130-400); RBC 3.35 10^6/uL (4.36-5.78); RDW 18.6 % (11.8-14.1); WBC 6.09 10^3/uL (4.4-10.8)
[2021-02-20 07:38] LABS: ALT 13 U/L (16-63); AST 10 U/L (15-37); Albumin 2.8 g/dL (3.4-5.0); Alkaline Phosphatase 85 U/L (46-116); Anion Gap 4.6 mmol/L (3-11); BUN 20 mg/dL (7-18); Bilirubin, Total 0.2 mg/dL (0.2-1.0); CO2 29.4 mmol/L (21.0-32.0); CREATININE 0.8 mg/dL (0.70-1.30); Calcium 8.2 mg/dL (8.5-10.1); Chloride 107 mmol/L (98-107); Glucose 102 mg/dL (74-106); Potassium 3.9 mmol/L (3.5-5.1); Sodium 141 mmol/L (136-145); Total Protein 5.9 g/dL (6.4-8.2)
[2021-02-26] MEDS: Normal Saline Flush 10 ML SYR IVP (08:00)
[2021-02-26 08:36] LABS: Abs Immature Grans 0.05 10^3/uL (0.0-0.06); Absolute Basophil Count 0.06 10^3/uL (0.0-0.2); Absolute Eosinophil Count 0.07 10^3/uL (0.0-0.7); Absolute Monocyte Count 0.31 10^3/uL (0.1-0.8); Absolute Neutrophil Count 3.73 10^3/uL (1.2-6.7); Basophils % 1.2; Eosinophils % 1.4; HCT 31.4 % (40.0-50.0); HGB 9.8 g/dL (13.5-17.5); Lymphocytes % 14.2; MCHC 31.2 % (32.0-36.0); MPV 11.2 fL (8.0-11.0); Monocytes % 6.3; Neutrophils % 75.9; Nucleated RBC 0 %; Platelet Count 233 10^3/uL (130-400); RBC 3.27 10^6/uL (4.36-5.78); RDW 18.6 % (11.8-14.1); RDW-SD 63.7 fL; WBC 4.92 10^3/uL (4.4-10.8)
[2021-02-26 08:48] LABS: ALT 16 U/L (16-63); AST 11 U/L (15-37); Alkaline Phosphatase 89 U/L (46-116); BUN 26 mg/dL (7-18); Bilirubin, Total 0.2 mg/dL (0.2-1.0); Calcium 8.4 mg/dL (8.5-10.1); Chloride 106 mmol/L (98-107); Glucose 94 mg/dL (74-106); Potassium 4.2 mmol/L (3.5-5.1); Sodium 142 mmol/L (136-145); Total Protein 6.3 g/dL (6.4-8.2)
[2021-03-05] MEDS: Normal Saline Flush 10 ML SYR IVP (07:35)
[2021-03-05 07:45] LABS: Abs Immature Grans 0.02 10^3/uL (0.0-0.06); Absolute Basophil Count 0.03 10^3/uL (0.0-0.2); Absolute Lymphocyte Count 1.06 10^3/uL (1.2-3.4); Absolute Monocyte Count 0.64 10^3/uL (0.1-0.8); Absolute Neutrophil Count 3.94 10^3/uL (1.2-6.7); Basophils % 0.5; Eosinophils % 1.7; HCT 35.1 % (40.0-50.0); HGB 11.1 g/dL (13.5-17.5); Immature Grans % 0.3; Lymphocytes % 18.3; MCH 29.8 pg (27.0-33.0); MCHC 31.6 % (32.0-36.0); MCV 94.4 fL (80-95); MPV 10.4 fL (8.0-11.0); Monocytes % 11.1; Neutrophils % 68.1; Nucleated RBC 0 %; Platelet Count 238 10^3/uL (130-400); RBC 3.72 10^6/uL (4.36-5.78); RDW 17.9 % (11.8-14.1); RDW-SD 61.6 fL; WBC 5.79 10^3/uL (4.4-10.8)
[2021-03-05 07:58] LABS: ALT 11 U/L (16-63); AST 9 U/L (15-37); Albumin 3.1 g/dL (3.4-5.0); Alkaline Phosphatase 99 U/L (46-116); Anion Gap 6.9 mmol/L (3-11); BUN 19 mg/dL (7-18); Bilirubin, Total 0.3 mg/dL (0.2-1.0); CO2 29.1 mmol/L (21.0-32.0); CREATININE 0.8 mg/dL (0.70-1.30); Calcium 8.8 mg/dL (8.5-10.1); Chloride 105 mmol/L (98-107); Glucose 94 mg/dL (74-106); LDH 125 U/L (85-227); Potassium 4.3 mmol/L (3.5-5.1); Sodium 141 mmol/L (136-145); Total Protein 6.5 g/dL (6.4-8.2)
[2021-03-12 08:38] LABS: Abs Immature Grans 0.05 10^3/uL (0.0-0.06); Absolute Basophil Count 0.05 10^3/uL (0.0-0.2); Absolute Eosinophil Count 0.08 10^3/uL (0.0-0.7); Absolute Lymphocyte Count 0.86 10^3/uL (1.2-3.4); Absolute Neutrophil Count 3.69 10^3/uL (1.2-6.7); Eosinophils % 1.6; HCT 34.5 % (40.0-50.0); HGB 10.9 g/dL (13.5-17.5); Lymphocytes % 16.8; MCH 30.3 pg (27.0-33.0); MCHC 31.6 % (32.0-36.0); MCV 95.8 fL (80-95); Monocytes % 7.8; Neutrophils % 71.8; Nucleated RBC 0 %; Platelet Count 207 10^3/uL (130-400); RDW 17.2 % (11.8-14.1); RDW-SD 59.6 fL; WBC 5.13 10^3/uL (4.4-10.8)
[2021-03-12] MEDS: Normal Saline Flush 10 ML SYR IVP (08:39)
[2021-03-12 08:55] LABS: ALT 13 U/L (16-63); AST 12 U/L (15-37); Albumin 3.1 g/dL (3.4-5.0); Alkaline Phosphatase 94 U/L (46-116); Anion Gap 4.9 mmol/L (3-11); BUN 20 mg/dL (7-18); Bilirubin, Total 0.3 mg/dL (0.2-1.0); CO2 29.1 mmol/L (21.0-32.0); Calcium 8.7 mg/dL (8.5-10.1); Chloride 105 mmol/L (98-107); Glucose 127 mg/dL (74-106); LDH 134 U/L (85-227); Sodium 139 mmol/L (136-145); Total Protein 6.6 g/dL (6.4-8.2)
== END 2021-03-15 23:59 | disposition home or self-care (01) ==
LOC: INF 02:41
PROVIDERS: PCP Internal Medicine; Visit Provider Internal Medicine Hematology & Oncology
DX: Z45.2 Encounter for adjustment and management of vascular access device (principal); C34.90 Malignant neoplasm of unspecified part of unspecified bronchus or lung
CPT/HCPCS: 36591; 80053; 83615; 85025

== ENCOUNTER 2021-04-12 01:44 | Outpatient (RCR) | payer MEDICAID, SELFPAY ==
[2021-04-05] MEDS: Normal Saline Flush 10 ML SYR IVP (07:06)
[2021-04-05 07:12] LABS: Abs Immature Grans 0.02 10^3/uL (0.0-0.06); Absolute Basophil Count 0.05 10^3/uL (0.0-0.2); Absolute Eosinophil Count 0.09 10^3/uL (0.0-0.7); Absolute Monocyte Count 0.51 10^3/uL (0.1-0.8); Absolute Neutrophil Count 3.67 10^3/uL (1.2-6.7); Eosinophils % 1.8; HGB 10.9 g/dL (13.5-17.5); Immature Grans % 0.4; Lymphocytes % 15.6; MCH 29.1 pg (27.0-33.0); MCHC 31.1 % (32.0-36.0); MCV 93.6 fL (80-95); MPV 10.5 fL (8.0-11.0); Monocytes % 9.9; Neutrophils % 71.3; Nucleated RBC 0 %; Platelet Count 225 10^3/uL (130-400); RBC 3.74 10^6/uL (4.36-5.78); RDW 16.8 % (11.8-14.1); RDW-SD 58.4 fL; WBC 5.14 10^3/uL (4.4-10.8)
[2021-04-05 07:28] LABS: ALT 13 U/L (16-63); AST 12 U/L (15-37); Albumin 3.1 g/dL (3.4-5.0); Alkaline Phosphatase 100 U/L (46-116); Anion Gap 6.4 mmol/L (3-11); BUN 15 mg/dL (7-18); Bilirubin, Total 0.2 mg/dL (0.2-1.0); CO2 30.6 mmol/L (21.0-32.0); CREATININE 0.9 mg/dL (0.70-1.30); Calcium 8.5 mg/dL (8.5-10.1); Chloride 104 mmol/L (98-107); Glucose 97 mg/dL (74-106); LDH 136 U/L (85-227); Potassium 4.1 mmol/L (3.5-5.1); Sodium 141 mmol/L (136-145); Total Protein 6.1 g/dL (6.4-8.2)
[2021-04-12] MEDS: Normal Saline Flush 10 ML SYR IVP (07:47)
[2021-04-12 07:59] LABS: Abs Immature Grans 0.05 10^3/uL (0.0-0.06); Absolute Basophil Count 0.07 10^3/uL (0.0-0.2); Absolute Eosinophil Count 0.08 10^3/uL (0.0-0.7); Absolute Lymphocyte Count 0.68 10^3/uL (1.2-3.4); Absolute Monocyte Count 0.43 10^3/uL (0.1-0.8); Absolute Neutrophil Count 4.04 10^3/uL (1.2-6.7); Basophils % 1.3; Eosinophils % 1.5; HCT 35.6 % (40.0-50.0); HGB 11.1 g/dL (13.5-17.5); Immature Grans % 0.9; Lymphocytes % 12.7; MCHC 31.2 % (32.0-36.0); MPV 10.3 fL (8.0-11.0); Neutrophils % 75.6; Nucleated RBC 0 %; Platelet Count 185 10^3/uL (130-400); RBC 3.83 10^6/uL (4.36-5.78); RDW 16.5 % (11.8-14.1); WBC 5.35 10^3/uL (4.4-10.8)
[2021-04-12 08:43] LABS: ALT 12 U/L (16-63); AST 12 U/L (15-37); Albumin 3.1 g/dL (3.4-5.0); Alkaline Phosphatase 103 U/L (46-116); Anion Gap 6.9 mmol/L (3-11); BUN 24 mg/dL (7-18); Bilirubin, Total 0.2 mg/dL (0.2-1.0); CO2 30.1 mmol/L (21.0-32.0); CREATININE 0.9 mg/dL (0.70-1.30); Calcium 8.5 mg/dL (8.5-10.1); Chloride 104 mmol/L (98-107); Glucose 113 mg/dL (74-106); LDH 133 U/L (85-227); Sodium 141 mmol/L (136-145); Total Protein 6.4 g/dL (6.4-8.2)
== END 2021-04-15 23:59 | disposition home or self-care (01) ==
LOC: INF 01:44
PROVIDERS: PCP Internal Medicine; Visit Provider Internal Medicine Hematology & Oncology
DX: C34.90 Malignant neoplasm of unspecified part of unspecified bronchus or lung (principal); Z45.2 Encounter for adjustment and management of vascular access device
CPT/HCPCS: 36591; 80053; 83615; 85025

== ENCOUNTER 2021-05-14 07:10 | Outpatient (RCR) | payer MEDICAID, SELFPAY ==
[2021-04-19 07:07] LABS: Abs Immature Grans 0.03 10^3/uL (0.0-0.06); Absolute Basophil Count 0.03 10^3/uL (0.0-0.2); Absolute Eosinophil Count 0.06 10^3/uL (0.0-0.7); Absolute Lymphocyte Count 0.89 10^3/uL (1.2-3.4); Absolute Monocyte Count 0.26 10^3/uL (0.1-0.8); Absolute Neutrophil Count 2.24 10^3/uL (1.2-6.7); Basophils % 0.9; Eosinophils % 1.7; HCT 32.6 % (40.0-50.0); HGB 10.2 g/dL (13.5-17.5); Immature Grans % 0.9; Lymphocytes % 25.4; MCH 29.2 pg (27.0-33.0); MCHC 31.3 % (32.0-36.0); MCV 93.4 fL (80-95); Monocytes % 7.4; Neutrophils % 63.7; Nucleated RBC 0 %; Platelet Count 187 10^3/uL (130-400); RBC 3.49 10^6/uL (4.36-5.78); RDW 16.6 % (11.8-14.1); RDW-SD 57.3 fL; WBC 3.51 10^3/uL (4.4-10.8)
[2021-04-19 07:20] LABS: ALT 12 U/L (16-63); AST 9 U/L (15-37); Albumin 2.9 g/dL (3.4-5.0); Alkaline Phosphatase 96 U/L (46-116); Anion Gap 10.8 mmol/L (3-11); BUN 17 mg/dL (7-18); Bilirubin, Total 0.2 mg/dL (0.2-1.0); CO2 28.2 mmol/L (21.0-32.0); CREATININE 0.9 mg/dL (0.70-1.30); Calcium 8.3 mg/dL (8.5-10.1); Chloride 104 mmol/L (98-107); Glucose 98 mg/dL (74-106); Potassium 3.1 mmol/L (3.5-5.1); Sodium 143 mmol/L (136-145); Total Protein 5.9 g/dL (6.4-8.2)
[2021-04-19] MEDS: Normal Saline Flush 10 ML SYR IVP (07:52)
[2021-05-07 07:49] LABS: Abs Immature Grans 0.03 10^3/uL (0.0-0.06); Absolute Basophil Count 0.04 10^3/uL (0.0-0.2); Absolute Eosinophil Count 0.05 10^3/uL (0.0-0.7); Absolute Lymphocyte Count 1.25 10^3/uL (1.2-3.4); Absolute Monocyte Count 0.65 10^3/uL (0.1-0.8); Absolute Neutrophil Count 4.85 10^3/uL (1.2-6.7); Basophils % 0.6; Eosinophils % 0.7; HCT 37.6 % (40.0-50.0); HGB 11.9 g/dL (13.5-17.5); Immature Grans % 0.4; Lymphocytes % 18.2; MCH 28.7 pg (27.0-33.0); MCHC 31.6 % (32.0-36.0); MCV 90.6 fL (80-95); MPV 10.5 fL (8.0-11.0); Monocytes % 9.5; Neutrophils % 70.6; Nucleated RBC 0 %; Platelet Count 208 10^3/uL (130-400); RBC 4.15 10^6/uL (4.36-5.78); RDW 16.2 % (11.8-14.1); RDW-SD 54.4 fL; WBC 6.87 10^3/uL (4.4-10.8)
[2021-05-07] MEDS: Normal Saline Flush 10 ML SYR IVP (07:59)
[2021-05-07 08:03] LABS: ALT 12 U/L (16-63); AST 9 U/L (15-37); Albumin 3.2 g/dL (3.4-5.0); Alkaline Phosphatase 105 U/L (46-116); Anion Gap 3.6 mmol/L (3-11); BUN 26 mg/dL (7-18); Bilirubin, Total 0.2 mg/dL (0.2-1.0); CO2 33.4 mmol/L (21.0-32.0); Calcium 8.2 mg/dL (8.5-10.1); Chloride 102 mmol/L (98-107); Glucose 104 mg/dL (74-106); LDH 134 U/L (85-227); Potassium 4.3 mmol/L (3.5-5.1); Sodium 139 mmol/L (136-145); Total Protein 6.5 g/dL (6.4-8.2)
[2021-05-14] MEDS: Normal Saline Flush 10 ML SYR IVP (07:24)
[2021-05-14 07:31] LABS: Abs Immature Grans 0.07 10^3/uL (0.0-0.06); Absolute Basophil Count 0.03 10^3/uL (0.0-0.2); Absolute Eosinophil Count 0.03 10^3/uL (0.0-0.7); Absolute Lymphocyte Count 0.86 10^3/uL (1.2-3.4); Absolute Monocyte Count 0.48 10^3/uL (0.1-0.8); Absolute Neutrophil Count 6.06 10^3/uL (1.2-6.7); Basophils % 0.4; Eosinophils % 0.4; HCT 38.1 % (40.0-50.0); HGB 11.8 g/dL (13.5-17.5); Immature Grans % 0.9; Lymphocytes % 11.4; MCH 28.4 pg (27.0-33.0); MCV 91.8 fL (80-95); MPV 11.1 fL (8.0-11.0); Monocytes % 6.4; Neutrophils % 80.5; Nucleated RBC 0 %; Platelet Count 212 10^3/uL (130-400); RBC 4.15 10^6/uL (4.36-5.78); RDW 16.5 % (11.8-14.1); RDW-SD 56.2 fL; WBC 7.53 10^3/uL (4.4-10.8)
[2021-05-14 07:48] LABS: ALT 14 U/L (16-63); AST 10 U/L (15-37); Albumin 3.1 g/dL (3.4-5.0); Alkaline Phosphatase 101 U/L (46-116); Anion Gap 8.6 mmol/L (3-11); BUN 39 mg/dL (7-18); Bilirubin, Total 0.2 mg/dL (0.2-1.0); CO2 26.4 mmol/L (21.0-32.0); CREATININE 1.1 mg/dL (0.70-1.30); Calcium 8.6 mg/dL (8.5-10.1); Chloride 105 mmol/L (98-107); Glucose 109 mg/dL (74-106); LDH 156 U/L (85-227); Potassium 4.4 mmol/L (3.5-5.1); Sodium 140 mmol/L (136-145); Total Protein 6.8 g/dL (6.4-8.2)
== END 2021-05-15 23:59 | disposition home or self-care (01) ==
LOC: INF 07:10
PROVIDERS: PCP Internal Medicine; Visit Provider Internal Medicine Hematology & Oncology
DX: C34.12 Malignant neoplasm of upper lobe, left bronchus or lung (principal); Z45.2 Encounter for adjustment and management of vascular access device
CPT/HCPCS: 36591; 80053; 83615; 85025

== ENCOUNTER 2021-05-21 02:08 | Outpatient (RCR) | payer MEDICAID, SELFPAY ==
[2021-05-21] MEDS: Normal Saline Flush 10 ML SYR IVP (07:30)
[2021-05-21 07:41] LABS: Abs Immature Grans 0.02 10^3/uL (0.0-0.06); Absolute Basophil Count 0.03 10^3/uL (0.0-0.2); Absolute Eosinophil Count 0.07 10^3/uL (0.0-0.7); Absolute Lymphocyte Count 1.12 10^3/uL (1.2-3.4); Absolute Monocyte Count 0.33 10^3/uL (0.1-0.8); Absolute Neutrophil Count 2.24 10^3/uL (1.2-6.7); Basophils % 0.8; Eosinophils % 1.8; HCT 34.4 % (40.0-50.0); HGB 10.7 g/dL (13.5-17.5); Immature Grans % 0.5; Lymphocytes % 29.4; MCH 28.3 pg (27.0-33.0); MCHC 31.1 % (32.0-36.0); MPV 11.3 fL (8.0-11.0); Monocytes % 8.7; Neutrophils % 58.8; Nucleated RBC 0 %; Platelet Count 201 10^3/uL (130-400); RBC 3.78 10^6/uL (4.36-5.78); RDW 17.4 % (11.8-14.1); RDW-SD 58.5 fL; WBC 3.81 10^3/uL (4.4-10.8)
[2021-05-21 07:52] LABS: ALT 13 U/L (16-63); AST 8 U/L (15-37); Albumin 2.8 g/dL (3.4-5.0); Alkaline Phosphatase 98 U/L (46-116); Anion Gap 6.8 mmol/L (3-11); BUN 27 mg/dL (7-18); Bilirubin, Total 0.1 mg/dL (0.2-1.0); CO2 27.2 mmol/L (21.0-32.0); Calcium 8.3 mg/dL (8.5-10.1); Chloride 106 mmol/L (98-107); Glucose 93 mg/dL (74-106); LDH 127 U/L (85-227); Potassium 3.9 mmol/L (3.5-5.1); Sodium 140 mmol/L (136-145); Total Protein 6.1 g/dL (6.4-8.2)
== END 2021-06-15 23:59 | disposition home or self-care (01) ==
LOC: INF 02:08
PROVIDERS: PCP Internal Medicine; Visit Provider Internal Medicine Hematology & Oncology
DX: C34.12 Malignant neoplasm of upper lobe, left bronchus or lung (principal); Z45.2 Encounter for adjustment and management of vascular access device
CPT/HCPCS: 36591; 80053; 83615; 85025

== ENCOUNTER 2023-09-02 04:33 | Outpatient (CLI) | payer MEDICAID, SELFPAY ==
[2023-09-02 08:09] LABS: Abs Immature Grans 0.01 10^3/uL (0.0-0.06); Absolute Basophil Count 0.06 10^3/uL (0.0-0.2); Absolute Eosinophil Count 0.15 10^3/uL (0.0-0.7); Absolute Lymphocyte Count 1.16 10^3/uL (1.2-3.4); Absolute Monocyte Count 0.49 10^3/uL (0.1-0.8); Absolute Neutrophil Count 3.39 10^3/uL (1.2-6.7); Basophils % 1.1; Eosinophils % 2.9; HCT 46.8 % (40.0-50.0); HGB 14.9 g/dL (13.5-17.5); Immature Grans % 0.2; Lymphocytes % 22.1; MCH 28.9 pg (27.0-33.0); MCHC 31.8 % (32.0-36.0); MCV 91 fL (80-95); MPV 10.5 fL (8.0-11.0); Monocytes % 9.3; Neutrophils % 64.4; Platelet Count 172 10^3/uL (130-400); RBC 5.16 10^6/uL (4.36-5.78); RDW 15.2 % (11.8-14.1); WBC 5.26 10^3/uL (4.4-10.8)
[2023-09-02 08:32] LABS: ALT 19 U/L (16-63); AST 15 U/L (15-37); Albumin 3.5 g/dL (3.4-5.0); Alkaline Phosphatase 137 U/L (46-116); Anion Gap 9.8 mmol/L (3-11); BUN 21 mg/dL (7-18); Bilirubin, Total 0.4 mg/dL (0.2-1.0); CO2 26.2 mmol/L (21.0-32.0); CREATININE 1.3 mg/dL (0.70-1.30); Calcium 8.4 mg/dL (8.5-10.1); Chloride 105 mmol/L (98-107); Estimated GFR 62.89 (mL/min/1.73m2); FREE T4 0.89 ng/dL (0.76-1.46); Glucose 105 mg/dL (74-106); LDH 153 U/L (85-227); Potassium 4.4 mmol/L (3.5-5.1); Sodium 141 mmol/L (136-145); TSH 5.18 uIU/Ml (0.36-3.74); Total Protein 7.1 g/dL (6.4-8.2)
== END 2023-09-02 04:34 | disposition home or self-care (01) ==
PROVIDERS: PCP Internal Medicine; Visit Provider Nurse Practitioner
DX: Z79.899 Other long term (current) drug therapy (principal)
CPT/HCPCS: 36415; 80053; 83615; 84439; 84443; 85025

== ENCOUNTER 2023-09-23 04:28 | Outpatient (RCR) | payer MEDICAID, SELFPAY ==
[2023-09-23] MEDS: Normal Saline Flush 10 ML SYR IVP (07:30)
[2023-09-23 08:30] LABS: Abs Immature Grans 0.03 10^3/uL (0.0-0.06); Absolute Basophil Count 0.07 10^3/uL (0.0-0.2); Absolute Eosinophil Count 0.13 10^3/uL (0.0-0.7); Absolute Lymphocyte Count 1.14 10^3/uL (1.2-3.4); Absolute Monocyte Count 0.42 10^3/uL (0.1-0.8); Absolute Neutrophil Count 3.42 10^3/uL (1.2-6.7); Basophils % 1.3; Eosinophils % 2.5; HCT 44.5 % (40.0-50.0); HGB 14.1 g/dL (13.5-17.5); Immature Grans % 0.6; Lymphocytes % 21.9; MCH 28.7 pg (27.0-33.0); MCHC 31.7 % (32.0-36.0); MCV 91 fL (80-95); MPV 10.9 fL (8.0-11.0); Monocytes % 8.1; Neutrophils % 65.6; Platelet Count 160 10^3/uL (130-400); RBC 4.91 10^6/uL (4.36-5.78); RDW 15.2 % (11.8-14.1); RDW-SD 51.2 fL; WBC 5.21 10^3/uL (4.4-10.8)
[2023-09-23 08:57] LABS: ALT 16 U/L (16-63); AST 11 U/L (15-37); Albumin 3.2 g/dL (3.4-5.0); Alkaline Phosphatase 119 U/L (46-116); Anion Gap 7.3 mmol/L (3-11); BUN 20 mg/dL (7-18); Bilirubin, Total 0.2 mg/dL (0.2-1.0); CO2 26.7 mmol/L (21.0-32.0); Calcium 8.1 mg/dL (8.5-10.1); Chloride 106 mmol/L (98-107); Estimated GFR 86.16 (mL/min/1.73m2); FREE T4 0.91 ng/dL (0.76-1.46); Glucose 93 mg/dL (74-106); LDH 133 U/L (85-227); Potassium 3.7 mmol/L (3.5-5.1); Sodium 140 mmol/L (136-145); TSH 2.71 uIU/Ml (0.36-3.74); Total Protein 6.6 g/dL (6.4-8.2)
== END 2023-10-14 23:59 | disposition home or self-care (01) ==
LOC: INF 04:28
PROVIDERS: PCP Internal Medicine; Visit Provider Nurse Practitioner
DX: C34.12 Malignant neoplasm of upper lobe, left bronchus or lung (principal); Z79.899 Other long term (current) drug therapy; Z45.2 Encounter for adjustment and management of vascular access device
CPT/HCPCS: 36591; 80053; 83615; 84439; 84443; 85025

== ENCOUNTER 2023-11-12 04:54 | Outpatient (RCR) | payer MEDICAID, SELFPAY ==
[2023-10-22] MEDS: Normal Saline Flush 10 ML SYR IVP (07:55)
[2023-10-22 08:26] LABS: Abs Immature Grans 0.02 10^3/uL (0.0-0.06); Absolute Basophil Count 0.05 10^3/uL (0.0-0.2); Absolute Eosinophil Count 0.18 10^3/uL (0.0-0.7); Absolute Lymphocyte Count 1.29 10^3/uL (1.2-3.4); Absolute Monocyte Count 0.41 10^3/uL (0.1-0.8); Absolute Neutrophil Count 2.95 10^3/uL (1.2-6.7); Eosinophils % 3.7 %; HCT 42.1 % (40.0-50.0); HGB 13.7 g/dL (13.5-17.5); Immature Grans % 0.4 %; Lymphocytes % 26.3 %; MCH 29.2 pg (27.0-33.0); MCHC 32.5 % (32.0-36.0); MCV 90 fL (80-95); MPV 10.8 fL (8.0-11.0); Monocytes % 8.4 %; Neutrophils % 60.2 %; Platelet Count 167 10^3/uL (130-400); RBC 4.69 10^6/uL (4.36-5.78); RDW 14.7 % (11.8-14.1); RDW-SD 48.6 fL
[2023-10-22 08:55] LABS: ALT 21 U/L (16-63); AST 17 U/L (15-37); Albumin 3.2 g/dL (3.4-5.0); Alkaline Phosphatase 119 U/L (46-116); Anion Gap 9.5 mmol/L (3-11); BUN 15 mg/dL (7-18); Bilirubin, Total 0.5 mg/dL (0.2-1.0); CO2 27.5 mmol/L (21.0-32.0); CREATININE 1.1 mg/dL (0.70-1.30); Chloride 107 mmol/L (98-107); Estimated GFR 76.85 (mL/min/1.73m2); FREE T4 1.09 ng/dL (0.76-1.46); Glucose 90 mg/dL (74-106); LDH 154 U/L (85-227); Potassium 3.2 mmol/L (3.5-5.1); Sodium 144 mmol/L (136-145); TSH 10.34 uIU/Ml (0.36-3.74); Total Protein 6.6 g/dL (6.4-8.2)
[2023-11-12] MEDS: Normal Saline Flush 10 ML SYR IVP (08:00)
[2023-11-12 08:44] LABS: Abs Immature Grans 0.02 10^3/uL (0.0-0.06); Absolute Basophil Count 0.06 10^3/uL (0.0-0.2); Absolute Eosinophil Count 0.18 10^3/uL (0.0-0.7); Absolute Lymphocyte Count 1.04 10^3/uL (1.2-3.4); Absolute Monocyte Count 0.44 10^3/uL (0.1-0.8); Absolute Neutrophil Count 3.67 10^3/uL (1.2-6.7); Basophils % 1.1 %; Eosinophils % 3.3 %; HCT 41.8 % (40.0-50.0); HGB 13.9 g/dL (13.5-17.5); Immature Grans % 0.4 %; Lymphocytes % 19.2 %; MCH 29.4 pg (27.0-33.0); MCHC 33.3 % (32.0-36.0); MCV 89 fL (80-95); MPV 11.4 fL (8.0-11.0); Monocytes % 8.1 %; Neutrophils % 67.9 %; Platelet Count 160 10^3/uL (130-400); RBC 4.72 10^6/uL (4.36-5.78); RDW 14.4 % (11.8-14.1); RDW-SD 46.5 fL; WBC 5.41 10^3/uL (4.4-10.8)
[2023-11-12 09:16] LABS: ALT 19 U/L (16-63); AST 13 U/L (15-37); Albumin 3.2 g/dL (3.4-5.0); Alkaline Phosphatase 130 U/L (46-116); Anion Gap 10.1 mmol/L (3-11); BUN 18 mg/dL (7-18); Bilirubin, Total 0.4 mg/dL (0.2-1.0); CO2 26.9 mmol/L (21.0-32.0); Chloride 106 mmol/L (98-107); Estimated GFR 86.16 (mL/min/1.73m2); Glucose 91 mg/dL (74-106); LDH 132 U/L (85-227); Potassium 3.3 mmol/L (3.5-5.1); Sodium 143 mmol/L (136-145); Total Protein 6.5 g/dL (6.4-8.2)
== END 2023-11-14 23:59 | disposition home or self-care (01) ==
LOC: INF 04:54
PROVIDERS: PCP Internal Medicine; Visit Provider Nurse Practitioner
DX: Z45.2 Encounter for adjustment and management of vascular access device (principal); C34.12 Malignant neoplasm of upper lobe, left bronchus or lung; Z79.899 Other long term (current) drug therapy
CPT/HCPCS: 36591; 80053; 83615; 84439; 84443; 85025

== ENCOUNTER 2023-12-03 04:39 | Outpatient (RCR) | payer MEDICAID, SELFPAY ==
[2023-12-03] MEDS: Normal Saline Flush 10 ML SYR IVP (07:55)
[2023-12-03 09:01] LABS: Abs Immature Grans 0.03 10^3/uL (0.0-0.06); Absolute Basophil Count 0.05 10^3/uL (0.0-0.2); Absolute Eosinophil Count 0.15 10^3/uL (0.0-0.7); Absolute Lymphocyte Count 1.14 10^3/uL (1.2-3.4); Absolute Monocyte Count 0.44 10^3/uL (0.1-0.8); Absolute Neutrophil Count 3.43 10^3/uL (1.2-6.7); Eosinophils % 2.9 %; HCT 44.4 % (40.0-50.0); HGB 14.4 g/dL (13.5-17.5); Immature Grans % 0.6 %; Lymphocytes % 21.8 %; MCH 29.6 pg (27.0-33.0); MCHC 32.4 % (32.0-36.0); MCV 91 fL (80-95); MPV 11.5 fL (8.0-11.0); Monocytes % 8.4 %; Neutrophils % 65.3 %; Platelet Count 146 10^3/uL (130-400); RBC 4.87 10^6/uL (4.36-5.78); RDW 14.6 % (11.8-14.1); RDW-SD 49.2 fL; WBC 5.24 10^3/uL (4.4-10.8)
[2023-12-03 09:35] LABS: ALT 21 U/L (16-63); AST 15 U/L (15-37); Albumin 3.3 g/dL (3.4-5.0); Alkaline Phosphatase 142 U/L (46-116); Anion Gap 7.1 mmol/L (3-11); BUN 15 mg/dL (7-18); Bilirubin, Total 0.5 mg/dL (0.2-1.0); CO2 28.9 mmol/L (21.0-32.0); CREATININE 1.1 mg/dL (0.70-1.30); Calcium 8.3 mg/dL (8.5-10.1); Chloride 107 mmol/L (98-107); Estimated GFR 76.85 (mL/min/1.73m2); FREE T4 1.02 ng/dL (0.76-1.46); Glucose 101 mg/dL (74-106); LDH 133 U/L (85-227); Potassium 3.6 mmol/L (3.5-5.1); Sodium 143 mmol/L (136-145); TSH 1.97 uIU/Ml (0.36-3.74); Total Protein 6.6 g/dL (6.4-8.2)
== END 2023-12-14 23:59 | disposition home or self-care (01) ==
LOC: INF 04:39
PROVIDERS: PCP Internal Medicine; Visit Provider Nurse Practitioner
DX: C34.12 Malignant neoplasm of upper lobe, left bronchus or lung (principal); Z79.899 Other long term (current) drug therapy; Z45.2 Encounter for adjustment and management of vascular access device
CPT/HCPCS: 36591; 80053; 83615; 84439; 84443; 85025

== ENCOUNTER 2024-02-05 03:23 | Outpatient (RCR) | payer MEDICAID, SELFPAY ==
[2024-01-15 08:05] LABS: Abs Immature Grans 0.02 10^3/uL (0.0-0.06); Absolute Basophil Count 0.04 10^3/uL (0.0-0.2); Absolute Eosinophil Count 0.14 10^3/uL (0.0-0.7); Absolute Lymphocyte Count 1.01 10^3/uL (1.2-3.4); Absolute Monocyte Count 0.33 10^3/uL (0.1-0.8); Absolute Neutrophil Count 3.65 10^3/uL (1.2-6.7); Basophils % 0.8 %; Eosinophils % 2.7 %; HCT 42.8 % (40.0-50.0); HGB 13.9 g/dL (13.5-17.5); Immature Grans % 0.4 %; Lymphocytes % 19.5 %; MCHC 32.5 % (32.0-36.0); MCV 92 fL (80-95); MPV 11.1 fL (8.0-11.0); Monocytes % 6.4 %; Neutrophils % 70.2 %; Platelet Count 158 10^3/uL (130-400); RBC 4.64 10^6/uL (4.36-5.78); RDW 15.3 % (11.8-14.1); RDW-SD 52.3 fL; WBC 5.19 10^3/uL (4.4-10.8)
[2024-01-15 08:32] LABS: ALT 18 U/L (16-63); AST 27 U/L (15-37); Albumin 3.2 g/dL (3.4-5.0); Alkaline Phosphatase 136 U/L (46-116); Anion Gap 11.6 mmol/L (3-11); BUN 17 mg/dL (7-18); Bilirubin, Total 0.35 mg/dL (0.2-1.0); CO2 26.4 mmol/L (21.0-32.0); CREATININE 1.1 mg/dL (0.70-1.30); Calcium 8.3 mg/dL (8.5-10.1); Chloride 105 mmol/L (98-107); Estimated GFR 76.85 (mL/min/1.73m2); FREE T4 0.95 ng/dL (0.76-1.46); Glucose 126 mg/dL (74-106); LDH 132 U/L (85-227); Sodium 143 mmol/L (136-145); TSH 2.21 uIU/Ml (0.36-3.74); Total Protein 6.8 g/dL (6.4-8.2)
[2024-01-15 08:55] LABS: Potassium 2.9 mmol/L (3.5-5.1)
[2024-02-05] MEDS: Normal Saline Flush 10 ML SYR IVP (07:59)
[2024-02-05 08:38] LABS: Abs Immature Grans 0.02 10^3/uL (0.0-0.06); Absolute Basophil Count 0.05 10^3/uL (0.0-0.2); Absolute Eosinophil Count 0.14 10^3/uL (0.0-0.7); Absolute Monocyte Count 0.48 10^3/uL (0.1-0.8); Absolute Neutrophil Count 4.11 10^3/uL (1.2-6.7); Basophils % 0.9 %; Eosinophils % 2.4 %; HCT 45.4 % (40.0-50.0); HGB 14.9 g/dL (13.5-17.5); Immature Grans % 0.3 %; Lymphocytes % 17.2 %; MCH 30.2 pg (27.0-33.0); MCHC 32.8 % (32.0-36.0); MCV 92 fL (80-95); MPV 11.3 fL (8.0-11.0); Monocytes % 8.3 %; Neutrophils % 70.9 %; Platelet Count 146 10^3/uL (130-400); RBC 4.94 10^6/uL (4.36-5.78); RDW 15.2 % (11.8-14.1); RDW-SD 51.8 fL
[2024-02-05 09:02] LABS: ALT 15 U/L (16-63); AST 36 U/L (15-37); Albumin 3.4 g/dL (3.4-5.0); Alkaline Phosphatase 133 U/L (46-116); Anion Gap 9.5 mmol/L (3-11); BUN 19 mg/dL (7-18); Bilirubin, Total 0.33 mg/dL (0.2-1.0); CO2 26.5 mmol/L (21.0-32.0); Calcium 8.9 mg/dL (8.5-10.1); Chloride 104 mmol/L (98-107); Estimated GFR 86.16 (mL/min/1.73m2); FREE T4 1.21 ng/dL (0.76-1.46); Glucose 91 mg/dL (74-106); LDH 157 U/L (85-227); Potassium 4.3 mmol/L (3.5-5.1); Sodium 140 mmol/L (136-145); TSH 2.97 uIU/Ml (0.36-3.74)
== END 2024-02-14 23:59 | disposition home or self-care (01) ==
LOC: INF 03:23
PROVIDERS: PCP Internal Medicine; Visit Provider Nurse Practitioner
DX: C34.12 Malignant neoplasm of upper lobe, left bronchus or lung (principal); Z79.899 Other long term (current) drug therapy
CPT/HCPCS: 36591; 80053; 83615; 84439; 84443; 85025

== ENCOUNTER 2024-04-07 03:10 | Outpatient (RCR) | payer MEDICAID, SELFPAY ==
[2024-03-18] MEDS: Normal Saline Flush 10 ML SYR IVP (07:53)
[2024-03-18 08:33] LABS: Abs Immature Grans 0.02 10^3/uL (0.0-0.06); Absolute Basophil Count 0.06 10^3/uL (0.0-0.2); Absolute Eosinophil Count 0.12 10^3/uL (0.0-0.7); Absolute Lymphocyte Count 0.81 10^3/uL (1.2-3.4); Absolute Monocyte Count 0.44 10^3/uL (0.1-0.8); Absolute Neutrophil Count 3.37 10^3/uL (1.2-6.7); Basophils % 1.2 %; Eosinophils % 2.5 %; HCT 44.4 % (40.0-50.0); HGB 14.5 g/dL (13.5-17.5); Immature Grans % 0.4 %; Lymphocytes % 16.8 %; MCH 30.7 pg (27.0-33.0); MCHC 32.7 % (32.0-36.0); MCV 94 fL (80-95); MPV 11.1 fL (8.0-11.0); Monocytes % 9.1 %; Platelet Count 152 10^3/uL (130-400); RBC 4.73 10^6/uL (4.36-5.78); RDW 14.5 % (11.8-14.1); RDW-SD 49.8 fL; WBC 4.82 10^3/uL (4.4-10.8)
[2024-03-18 09:01] LABS: ALT 17 U/L (16-63); AST 29 U/L (15-37); Albumin 3.3 g/dL (3.4-5.0); Alkaline Phosphatase 127 U/L (46-116); BUN 18 mg/dL (7-18); Bilirubin, Total 0.44 mg/dL (0.2-1.0); CREATININE 1.1 mg/dL (0.70-1.30); Calcium 8.7 mg/dL (8.5-10.1); Chloride 105 mmol/L (98-107); Estimated GFR 76.85 (mL/min/1.73m2); FREE T4 1.16 ng/dL (0.76-1.46); Glucose 92 mg/dL (74-106); LDH 154 U/L (85-227); Potassium 3.7 mmol/L (3.5-5.1); Sodium 140 mmol/L (136-145); TSH 2.37 uIU/Ml (0.36-3.74); Total Protein 6.8 g/dL (6.4-8.2)
[2024-04-07] MEDS: Normal Saline Flush 10 ML SYR IVP (07:35)
[2024-04-07 08:21] LABS: Abs Immature Grans 0.03 10^3/uL (0.0-0.06); Absolute Basophil Count 0.05 10^3/uL (0.0-0.2); Absolute Eosinophil Count 0.14 10^3/uL (0.0-0.7); Absolute Lymphocyte Count 0.76 10^3/uL (1.2-3.4); Absolute Monocyte Count 0.49 10^3/uL (0.1-0.8); Absolute Neutrophil Count 4.02 10^3/uL (1.2-6.7); Basophils % 0.9 %; Eosinophils % 2.6 %; HCT 44.7 % (40.0-50.0); HGB 14.5 g/dL (13.5-17.5); Immature Grans % 0.5 %; Lymphocytes % 13.8 %; MCH 30.4 pg (27.0-33.0); MCHC 32.4 % (32.0-36.0); MCV 94 fL (80-95); MPV 10.7 fL (8.0-11.0); Monocytes % 8.9 %; Neutrophils % 73.3 %; Platelet Count 155 10^3/uL (130-400); RBC 4.77 10^6/uL (4.36-5.78); RDW 14.9 % (11.8-14.1); RDW-SD 51.8 fL; WBC 5.49 10^3/uL (4.4-10.8)
[2024-04-07 08:45] LABS: ALT 21 U/L (16-63); AST 28 U/L (15-37); Albumin 3.4 g/dL (3.4-5.0); Alkaline Phosphatase 135 U/L (46-116); Anion Gap 8.5 mmol/L (3-11); BUN 16 mg/dL (7-18); CO2 28.5 mmol/L (21.0-32.0); CREATININE 1.2 mg/dL (0.70-1.30); Calcium 8.9 mg/dL (8.5-10.1); Chloride 107 mmol/L (98-107); Estimated GFR 69.23 (mL/min/1.73m2); FREE T4 1.05 ng/dL (0.76-1.46); Glucose 105 mg/dL (74-106); LDH 160 U/L (85-227); Potassium 3.3 mmol/L (3.5-5.1); Sodium 144 mmol/L (136-145)
== END 2024-04-15 23:59 | disposition home or self-care (01) ==
LOC: INF 03:10
PROVIDERS: PCP Internal Medicine; Visit Provider Nurse Practitioner
DX: C34.12 Malignant neoplasm of upper lobe, left bronchus or lung (principal); Z79.899 Other long term (current) drug therapy; Z45.2 Encounter for adjustment and management of vascular access device
CPT/HCPCS: 36591; 80053; 83615; 84439; 84443; 85025

== ENCOUNTER 2024-04-28 01:40 | Outpatient (RCR) | payer MEDICAID, SELFPAY ==
[2024-04-28 07:51] LABS: Abs Immature Grans 0.02 10^3/uL (0.0-0.06); Absolute Basophil Count 0.04 10^3/uL (0.0-0.2); Absolute Eosinophil Count 0.13 10^3/uL (0.0-0.7); Absolute Lymphocyte Count 0.79 10^3/uL (1.2-3.4); Absolute Monocyte Count 0.52 10^3/uL (0.1-0.8); Absolute Neutrophil Count 4.56 10^3/uL (1.2-6.7); Basophils % 0.7 %; Eosinophils % 2.1 %; HCT 43.6 % (40.0-50.0); HGB 14.2 g/dL (13.5-17.5); Immature Grans % 0.3 %; MCH 30.7 pg (27.0-33.0); MCHC 32.6 % (32.0-36.0); MCV 94 fL (80-95); MPV 10.6 fL (8.0-11.0); Monocytes % 8.6 %; Neutrophils % 75.3 %; Platelet Count 146 10^3/uL (130-400); RBC 4.62 10^6/uL (4.36-5.78); RDW 14.6 % (11.8-14.1); RDW-SD 50.8 fL; WBC 6.06 10^3/uL (4.4-10.8)
[2024-04-28] MEDS: Normal Saline Flush 10 ML SYR IVP (07:57)
[2024-04-28 08:27] LABS: ALT 15 U/L (16-63); AST 21 U/L (15-37); Albumin 3.1 g/dL (3.4-5.0); Alkaline Phosphatase 123 U/L (46-116); Anion Gap 7.5 mmol/L (3-11); BUN 14 mg/dL (7-18); Bilirubin, Total 0.66 mg/dL (0.2-1.0); CO2 28.5 mmol/L (21.0-32.0); Calcium 8.6 mg/dL (8.5-10.1); Chloride 106 mmol/L (98-107); Estimated GFR 86.16 (mL/min/1.73m2); FREE T4 1.13 ng/dL (0.76-1.46); Glucose 90 mg/dL (74-106); LDH 131 U/L (85-227); Potassium 3.5 mmol/L (3.5-5.1); Sodium 142 mmol/L (136-145); TSH 2.73 uIU/mL (0.36-3.74); Total Protein 6.8 g/dL (6.4-8.2)
== END 2024-05-15 23:59 | disposition home or self-care (01) ==
LOC: INF 01:40
PROVIDERS: PCP Internal Medicine; Visit Provider Nurse Practitioner
DX: C34.12 Malignant neoplasm of upper lobe, left bronchus or lung (principal); Z79.899 Other long term (current) drug therapy; Z45.2 Encounter for adjustment and management of vascular access device
CPT/HCPCS: 36591; 80053; 83615; 84439; 84443; 85025

== ENCOUNTER 2024-06-11 01:24 | Outpatient (RCR) | payer MEDICAID, SELFPAY ==
[2024-06-11 07:59] LABS: Abs Immature Grans 0.01 10^3/uL (0.0-0.06); Absolute Basophil Count 0.07 10^3/uL (0.0-0.2); Absolute Eosinophil Count 0.13 10^3/uL (0.0-0.7); Absolute Lymphocyte Count 1.03 10^3/uL (1.2-3.4); Absolute Neutrophil Count 3.63 10^3/uL (1.2-6.7); Basophils % 1.3 %; Eosinophils % 2.5 %; HCT 45.5 % (40.0-50.0); Immature Grans % 0.2 %; Lymphocytes % 19.5 %; MCH 30.7 pg (27.0-33.0); MCV 93 fL (80-95); MPV 10.4 fL (8.0-11.0); Monocytes % 7.6 %; Neutrophils % 68.9 %; Platelet Count 150 10^3/uL (130-400); RBC 4.89 10^6/uL (4.36-5.78); RDW-SD 48.3 fL; WBC 5.27 10^3/uL (4.4-10.8)
[2024-06-11] MEDS: Normal Saline Flush 10 ML SYR IVP (08:02)
[2024-06-11 08:31] LABS: ALT 13 U/L (16-63); AST 16 U/L (15-37); Albumin 3.1 g/dL (3.4-5.0); Alkaline Phosphatase 138 U/L (46-116); Anion Gap 6.9 mmol/L (3-11); BUN 14 mg/dL (7-18); Bilirubin, Total 0.44 mg/dL (0.2-1.0); CO2 28.1 mmol/L (21.0-32.0); Calcium 8.3 mg/dL (8.5-10.1); Chloride 104 mmol/L (98-107); Estimated GFR 86.16 (mL/min/1.73m2); FREE T4 1.02 ng/dL (0.76-1.46); Glucose 106 mg/dL (74-106); LDH 117 U/L (85-227); Potassium 3.6 mmol/L (3.5-5.1); Sodium 139 mmol/L (136-145); TSH 3.09 uIU/mL (0.36-3.74); Total Protein 6.7 g/dL (6.4-8.2)
== END 2024-06-15 23:59 | disposition home or self-care (01) ==
LOC: INF 01:24
PROVIDERS: PCP Internal Medicine; Visit Provider Nurse Practitioner
DX: C34.12 Malignant neoplasm of upper lobe, left bronchus or lung (principal); Z79.899 Other long term (current) drug therapy; Z45.2 Encounter for adjustment and management of vascular access device
CPT/HCPCS: 36591; 80053; 83615; 84439; 84443; 85025

== ENCOUNTER 2024-06-11 07:50 | Emergency (ER) | payer MEDICAID, SELFPAY ==
--- NOTE | 2024-06-11 07:45 | RT.EKG_ITS ---
APPROVED REPORT Exam: Resting ECG Reason for Exam: Syncopal; Patient Location: E HR:70 bpm ECG Measurements Heart Rate 70 AXIS TX 126 P 65 QRSd 118 QRS 71 QT 418 T 70 QTc 453 Conclusion Sinus rhythm [address] changes no stemi
[2024-06-11 07:58] VITALS: BP 209/103; PULSE 71; RESP 18; O2SAT 97
--- NOTE | 2024-06-11 08:00 | DI.CT_ITS ---
Exam(s) CT BRAIN NECK CTA EXAM: CT BRAIN NECK CTA CLINICAL HISTORY: near syncope, left sided weakness, met ca. TECHNIQUE: Imaging Protocol: Axial CT angiography was performed with multi-slice acquisition and mu lti-planar and MIP reconstructions. CONTRAST MATERIAL: Intravenous: Omnipaque 350 Contrast volume:100 ml COMPARISON: CT,PT PET/CT WHOLE BODY from 09/01/2017 CT CHEST FOR PULMONARY EMBOLUS from 10/14/2017 CR XR CHEST 2V PA LATERAL from 08/07/2020 FINDINGS: CT Head W/O and W contrast: Ventricles and Extra axial spaces: Normal in size and morphology for the patient's age. Hemorrhage: None. Cerebral parenchyma: No evidence of acute infarct or mass. Small old right frontal infarct. Midline shift: None. Brainstem/Cerebellum: No acute findings. Calvarium: Normal. Visualized Paranasal sinuses/Mastoids: Mucosal thickening and partial opacification of ethmoid sinuse s, left maxillary and left sphenoid sinus. Soft Tissues: Unremarkable. Enhancement: Normal. CTA Brain W: Internal Carotid Arteries: Petrous: Scattered calcifications. No significant stenosis. Cavernous: Scattered calcifications. No significant stenosis. Cerebral: Normal. Middle Cerebral Arteries: Right: No aneurysm, occlusion or significant stenosis. Left: No aneurysm, occlusion or significant stenosis. Anterior Cerebral Arteries: 5.5 by 4 by 4 millimeter aneurysm extending inferiorly from the anterior communicating artery. Right: No aneurysm, occlusion or significant stenosis. Left: No aneurysm, occlusion or significant stenosis. Posterior cerebral Arteries: Right: No aneurysm, occlusion or significant stenosis. Left: No aneurysm, occlusion or significant stenosis. Vertebral Arteries: Right: No aneurysm, occlusion or significant stenosis. Left: No aneurysm, occlusion or significant stenosis. Basilar Artery: No aneurysm, occlusion or significant stenosis. CTA Neck W: Common Carotid: Right: No dissection, occlusion or significant stenosis. Left: No dissection, occlusion or significant stenosis. External Carotid: Right: No dissection, occlusion or significant stenosis. Left: No dissection, occlusion or significant stenosis. Internal Carotid: Right: Mild mixed plaque proximally. No dissection, occlusion or significant stenosis. Left: Mild calcific plaque proximally. No dissection, occlusion or significant stenosis. Vertebral Artery: Right: No dissection, occlusion or significant stenosis. Left: No dissection, occlusion or significant stenosis. Lung Apices: No acute findings. Emphysematous changes. Area of scarring versus mass posteromedial right upper lobe. Bones: No acute abnormality. Soft Tissues: Normal. IMPRESSION: 1. CTA brain: 5.5 centimeter aneurysm extending inferiorly from the anterior communicating artery. N o vascular occlusion or significant stenosis. 2. Head CT: Old right frontal infarct. No evidence of acute hemorrhage, acute infarct or mass. Sinu s disease. 3. CTA neck: Mild calcification at the proximal internal carotid arteries without significant stenosi s. 4. Scarring versus mass at the medial left upper lobe. Findings called to Dr. Ruiz of the emergency department. RADIATION DOSE DELIVERED: 2,137.47mGy.cm Total DLP DATA REPOSITORY: All CT scans at this facility are submitted to the National Radiology Data Registry (NRDR) Dose Index Registry (DIR) with the [employer] (A[employer]). RADIATION OPTIMIZATION: All CT scans at this facility use at least one of these dose optimization te chniques: automated exposure control; mA and/or kV adjustment per patient size (includes targeted exa ms where dose is matched to clinical indication); or iterative reconstruction.
[2024-06-11 08:05] VITALS: TEMP 36.6
[2024-06-11 08:11] VITALS: RESP 18
[2024-06-11 08:16] VITALS: BP 180/104; PULSE 69; PULSE 72; RESP 13; O2SAT 97
[2024-06-11 08:22] LABS: Abs Immature Grans 0.02 10^3/uL (0.0-0.06); Absolute Basophil Count 0.05 10^3/uL (0.0-0.2); Absolute Eosinophil Count 0.12 10^3/uL (0.0-0.7); Absolute Monocyte Count 0.42 10^3/uL (0.1-0.8); Absolute Neutrophil Count 3.67 10^3/uL (1.2-6.7); Basophils % 0.9 %; Eosinophils % 2.2 %; HCT 46.4 % (40.0-50.0); HGB 15.5 g/dL (13.5-17.5); Immature Grans % 0.4 %; Lymphocytes % 21.9 %; MCH 30.9 pg (27.0-33.0); MCHC 33.4 % (32.0-36.0); MCV 92 fL (80-95); MPV 10.2 fL (8.0-11.0); Monocytes % 7.7 %; Neutrophils % 66.9 %; Platelet Count 143 10^3/uL (130-400); RBC 5.02 10^6/uL (4.36-5.78); RDW-SD 47.4 fL; WBC 5.48 10^3/uL (4.4-10.8)
[2024-06-11] MEDS: Omnipaque 350 MG/ML 100 ML BTL IJ (08:34)
[2024-06-11] MEDS: Normal Saline - Diluent 50 ML VIAL IJ (08:35)
[2024-06-11 08:43] LABS: ALT 14 U/L (16-63); AST 18 U/L (15-37); Albumin 3.2 g/dL (3.4-5.0); Alkaline Phosphatase 144 U/L (46-116); BUN 15 mg/dL (7-18); Bilirubin, Total 0.47 mg/dL (0.2-1.0); Calcium 8.7 mg/dL (8.5-10.1); Chloride 105 mmol/L (98-107); Estimated GFR 86.16 (mL/min/1.73m2); Glucose 95 mg/dL (74-106); Magnesium 1.7 mg/dL (1.8-2.4); Potassium 3.7 mmol/L (3.5-5.1); Sodium 139 mmol/L (136-145); Troponin I 14 ng/L (<or=76)
[2024-06-11 09:10] VITALS: PULSE 63; RESP 22; O2SAT 95
--- NOTE | 2024-06-11 09:19 | ED.GENADUL_ITS ---
Discharge Plan Disposition Patient Disposition: Home Condition: Stable Discharge Details Chief Complaint: CVA/TIA Clinical Impression: Episode of generalized weakness, Metastatic lung cancer (metastasis from lung to other site), Hypertension, Aneurysm Primary Care Provider: Santos Olguin ED Provider: Iris Ruiz Home Meds and New Rx's Prescriptions: No Action acetaminophen 325 mg tablet 650 mg PO Q4H PRN naproxen 500 mg tablet,delayed release (DR/EC) 500 mg PO BID MDD 1000 mg Qty: 60 0RF Eliquis 5 mg tablet 5 mg PO DAILY Patient Comments: TAKE 1 TABLET BY MOUTH TWICE DAILY HPI General Date/Time Provider Initiated Documentation: 06/11/24 08:11 . Limitations to Documentation: no limitations . Information obtained by: patient . HPI Narrative: 58-year-old gentleman with past medical history of metastatic lung cancer on chemotherapy infusion presents for evaluation of generalized weakness and near syncope. Patient presented this morning for lab work. He had not eaten breakfast. He had his port accessed and blood work was drawn. When he was leaving he says that he felt really lightheaded and thought he might pass out. He reports some generalized weakness in both of his legs some difficulty walking. There is some initial concerns about some more left arm weakness, but this is minimal and already gotten better he denies any headache, chest pain or shortness of breath. Related Data Home Medications ?Medication ?Instructions ?Recorded ?Confirmed acetaminophen 325 mg tablet 650 mg PO Q4H PRN 02/17/18 06/11/24 naproxen 500 mg tablet,delayed 500 mg PO BID tendonitis #60 tabs 09/01/18 06/11/24 release apixaban 5 mg tablet (Eliquis) 5 mg PO DAILY 06/11/24 06/11/24 Previous Rx's ?Medication ?Instructions ?Recorded naproxen 500 mg tablet,delayed 500 mg PO BID tendonitis #60 tabs 09/01/18 release Allergies Allergy/AdvReac Type Severity Reaction Status Date / Time No Known Allergies Allergy Verified 06/11/24 08:06 Bee Stings Allergy Anaphylaxis Uncoded 06/11/24 08:06 General Stated Complaint: CVA/TIA RACHEL: 2 Exam Narrative Exam Narrative: Review of Systems: All systems reviewed & are unremarkable except as noted in HPI and below Well-developed, no acute distress NCAT no facial asymmetry PERRL, normal conjunctiva no nystagmus RRR, no murmur, port in chest wall noted Unlabored respiratory effort clear bilaterally Nondistended abdomen soft nontender no focal neurologic deficits, equal strength in all 4 extremities, no pronator drift, no past-pointing Appropriate mood and affect Course Vital Signs Vital signs: Vital Signs Pulse 71 06/11/24 07:58 Respiratory Rate 18 06/11/24 07:58 Blood Pressure 209/103 H 06/11/24 07:58 Pulse Oximetry 97 06/11/24 07:58 Temperature 36.6 C 06/11/24 08:05 Pulse 71 06/11/24 07:58 Respiratory Rate 18 06/11/24 08:11 Respiratory Effort Normal, Non-Labored 06/11/24 08:11 Respiratory Depth Normal 06/11/24 08:11 Respiratory Pattern Normal 06/11/24 08:11 Blood Pressure 209/103 H 06/11/24 07:58 Pulse Oximetry 97 06/11/24 07:58 Oxygen Delivery Method Room Air 06/11/24 07:58 Oxygen Flow Rate 0 06/11/24 07:58 Lab/Test Results Lab/Test Results: Laboratory Tests Range/Units 06/11/24 08:13 WBC (4.4-10.8) 10^3/uL 5.48 RBC (4.36-5.78) 10^6/uL 5.02 Hgb (13.5-17.5) g/dL 15.5 Hct (40.0-50.0) % 46.4 MCV (80-95) fL 92 MCH (27.0-33.0) pg 30.9 MCHC (32.0-36.0) % 33.4 RDW (11.8-14.1) % 14.0 Plt Count (130-400) 10^3/uL 143 MPV (8.0-11.0) fL 10.2 Immature Gran % % 0.4 Neutrophils % % 66.9 Lymphocytes % % 21.9 Monocytes % % 7.7 Eosinophils % % 2.2 Basophils % % 0.9 Nucleated RBC % (0.0-0.3) % 0.0 Absolute Neutrophils (1.2-6.7) 10^3/uL 3.67 Absolute Lymphocytes (1.2-3.4) 10^3/uL 1.20 Absolute Monocytes (0.1-0.8) 10^3/uL 0.42 Absolute Eosinophils (0.0-0.7) 10^3/uL 0.12 Absolute Basophils (0.0-0.2) 10^3/uL 0.05 Sodium (136-145) mmol/L 139 Potassium (3.5-5.1) mmol/L 3.7 Chloride (98-107) mmol/L 105 Carbon Dioxide (21.0-32.0) mmol/L 27.0 Anion Gap (3-11) mmol/L 7.0 BUN (7-18) mg/dL 15 Creatinine (0.70-1.30) mg/dL 1.0 Est GFR (CKD-EPI 2020) (mL/min/1.73m2) 86.16 Glucose (74-106) mg/dL 95 Calcium (8.5-10.1) mg/dL 8.7 Magnesium (1.8-2.4) mg/dL 1.7 L Total Bilirubin (0.2-1.0) mg/dL 0.47 AST (15-37) U/L 18 ALT (16-63) U/L 14 L Alkaline Phosphatase (46-116) U/L 144 H Troponin I (<or=76) ng/L 14 Total Protein (6.4-8.2) g/dL 7.0 Albumin (3.4-5.0) g/dL 3.2 L Medical Decision Making Emergent evaluation of generalized weakness and near syncope. Initial differential includes CVA, TIA, dehydration. Patient has a nonfocal neurologic exam and I do not suspect is CVA. He did not lose consciousness or have true syncope. EKG was reviewed and independently interpreted: Sinus 70 normal axis, no acute ischemic changes. He is generally fairly ill with his cancer history. He is currently on Eliquis and therefore would not be a tPA candidate if this were stroke. I will obtain head imaging to evaluate for possible intracranial process like metastatic lesion or bleeding. Lab work reviewed. No significant leukocytosis or anemia. No electrolyte derangement. Magnesium slightly below normal, troponin not elevated. His head CT was reviewed with the radiologist. There does appear to be a 0.5 cm aneurysm of the ACOM. I have reviewed his records from [facility] and he had a brain MRI with and without contrast in April 2023 and it is noted to have the aneurysm of same size. Given that there is no significant change in the aneurysm, I am not concerned about this being the cause of his brief symptoms this morning on reevaluation he feels much better. He was offered breakfast and at this time he feels stable for discharge. I do not feel that further hospitalization would be necessary. He is scheduled for chemotherapy infusion later today. Quality:SDNC Health Related Social Needs: No Data to Display PFSH All Active Problems (Updated 06/11/24 @ 09:31 by Iris Ruiz MD) Aneurysm (Acute) Episode of generalized weakness (Acute) Unintentional weight loss (Chronic) Cancer related pain (Chronic) Chemotherapy adverse reaction (Acute) Coronary artery calcification (Chronic) Gluteal pain (Chronic) Psoas mass (Chronic) Metastatic lung cancer (metastasis from lung to other site) (Chronic) Right shoulder tendonitis (Chronic) Pancoast tumor of left lung (Chronic) Hypertension (Chronic) Chemotherapy-induced nausea (Acute) Back strain (Chronic) Smoking history (Acute) Marijuana use, continuous (Acute) History of heavy alcohol consumption (Acute) History of lung biopsy (Acute) Counseling regarding advance directives and goals of care (Acute) Smoking 1/2 pack a day or less (Chronic) Lung cancer (Chronic) Maintenance antineoplastic immunotherapy (Chronic) Medical History Palliative care patient Palliative care patient Family History Mother DVT (deep venous thrombosis) Father , at age 72 Colon cancer Daughter No problems noted. Son No problems noted. Brother Low back pain Sister , at age 65 Kidney failure Brother No problems noted. Brother No problems noted. Brother No problems noted. Brother No problems noted. Brother No problems noted. Sister No problems noted. Sister No problems noted. Sister No problems noted. Sister No problems noted. Sister No problems noted. Social History Smoking/Tobacco Use Status: Current every day Tobacco: How many years used: 30 Quit status: considering quitting Second Hand Exposure: Yes Counseling given: provider counseling Smoking risk assessment performed?: Yes Alcohol Intake: current Alcohol Intake frequency: a few times a month Alcohol type: beer and hard liquor Drug use: Daily Substance use type: marijuana Adopted: No Caregiver/Support person: Yes Foster care: No Household members: significant other Housing: house Number of Children: 2 number of grandchildren: 0 Do you need help understanding health information?: Rarely What is your relationship status?: living with partner How often do you talk on the phone with friends or family?: twice per week How often do you get together with friends or relatives?: twice per week Panel score (0-1 are the most socially isolated patients): 2 What type of physical activity do you participate in: walking Special viraj needs: No Agree to transfusion: Yes
[2024-06-11 10:03] VITALS: BP 147/97; PULSE 68; PULSE 72; PULSE 74; RESP 27; RESP 29; TEMP 36.7; O2SAT 96; O2SAT 97
== END 2024-06-11 10:16 | disposition home or self-care (01) ==
PROVIDERS: Emergency Provider Emergency Medicine; PCP Internal Medicine
DX: R53.1 Weakness (principal); I10 Essential (primary) hypertension; C34.12 Malignant neoplasm of upper lobe, left bronchus or lung
CPT/HCPCS: 36415; 36416; 70496; 70498; 80053; 82962; 93005; 99285; 83735; 84484; 85025; 93010; 99284; J3490

== ENCOUNTER 2024-07-05 01:29 | Outpatient (CLI) | payer MEDICAID, SELFPAY ==
--- NOTE | 2024-07-05 | DI.MRI_ITS ---
Exam(s) MR THORACIC SPINE WO/W EXAM: MR THORACIC SPINE WO/W CLINICAL HISTORY: LT UPPER LOBE LUNG CANCER C34.12 SECONDARY OF MUSCLE OF PELVIS HX L SPINE TECHNIQUE: Multiplanar multisequence MRI of the thoracic spine was performed without intravenous con trast. COMPARISON: CT,PT PET/CT WHOLE BODY from 09/01/2017 MR MR LUMBAR SPINE WO/W from 11/15/2020 MR MR THORACIC SPINE WO/W from 07/05/2024 FINDINGS: OSSEOUS: There are no acute appearing thoracic vertebral fractures. There are no ominous osseous les ions in the thoracic vertebrae. No abnormal intraosseous enhancement. THORACIC SPINAL CORD: There is no abnormal signal in the cervical spinal cord and no evidence of foca l cord atrophy nor focal cord swelling. There is no evidence of syringomyelia nor significant spinal cord dysraphism. There is no evidence of mass at the conus medullaris. The position of the conus me dullaris is at normal level. There is no evidence of abnormal enhancement in the thoracic spinal cord nor within the thoracic vert ebral bodies. Also no abnormal extramedullary-intradural nor extra dural enhancement evident in the thoracic spinal column. SIGNIFICANT INDIVIDUAL LEVEL FINDINGS: There is a small posterolateral left disc protrusion at T6-7 level noted. This mildly impresses the thecal sac at this level. There is no central canal stenosis. Disc protrusion does not extend into the exiting neural foramen and there is no foraminal stenosis on either side at this level (nor elsew here in the thoracic spinal column). PARASPINAL TISSUES: Incidentally noted is a pleural based mass in the medial aspect of the sub apical left upper lobe which is concerning for malignancy. This extends towards the junction of the left foramen and extraforaminal region of the left T1-2 skylar culation. There is a nodule noted in the medial limb of the left adrenal gland which measures 1.2 by 1.0 cm. T his is probably a benign adenoma as it was evident on CT scan of August 2017 and was not radiopharmace utical avid on the PET-CT scan performed at that time. IMPRESSION: 1. There is a pleural based Pancoast-type neoplastic appearing mass in the medial aspect of the sub a pical left upper lobe, this corresponding to area of mass on PET-CT scan of 09/01/2017. There is exte nsion of this lesion into the junction of the left extraforaminal/neural foraminal region at T1-T2 ar ticulation, without obvious extension into the spinal canal. There was 2nd rib involvement demonstrated on the 2018 PET-CT scan. DATA REPOSITORY:
--- NOTE | 2024-07-05 | DI.MRI_ITS ---
Exam(s) MR BRAIN WO/W EXAM: MR BRAIN WO/W CLINICAL HISTORY: LT UPPER LOBE LUNG CANCER C34.12 SECONDARY OF MUSCLE OF PELVIS HX L SPINE TECHNIQUE: Multiplanar multisequence MRI of the brain was performed. Both noninfused and contrast i nfused sequences were performed. IV Contrast injected was 15 cc Dotarem. COMPARISON: MR MRI BRAIN WWO CONTRAST (GENERIC) from 05/02/[address] BRAIN NECK CTA from 06/11/2024 MR MR BRAIN WO/W from 07/05/2024 FINDINGS: CEREBRAL PARENCHYMA: No evidence of intracranial hemorrhage, new mass effect nor shift of midline str ucture. No extraaxial fluid collections. Ventricles are not enlarged nor shifted. There is no significant focal signal abnormality in the cerebellar hemispheres nor within the kandice, m idbrain, and thalami. Previously described areas of abnormal FLAIR bright signal abnormality in bilateral periventricular a nd subcortical white matter exhibit minimal if any significant change from the MRI of 05/02/2023 and are not associated with hemorrhage, surrounding edema, restricted diffusion, nor enhancement. There i s no evidence of acute ischemic event. SWI imaging reveals no evidence of microhemorrhages in the bra in. The size of the previously described aneurysm at the level the anterior communicating artery remains unchanged. Previously described aneurysm at the bifurcation of the left MCA also appears unchanged fr om MRI scan of 05/02/2023. No additional new aneurysms evident. There are no ring enhancing lesions in the brain. There is no abnormal meningeal enhancement. PITUITARY GLAND: No mass nor parasellar abnormality. No obvious abnormality in the cavernous sinuses. FLOW VOIDS: The expected flow void are noted. No evidence of obvious aneurysm nor obvious vascular ma lformation. PARANASAL SINUSES: There is mucosal enhancement in both maxillary sinuses and small air-fluid levels noted consistent with sinusitis. There is also sinusitis involvement of the left sphenoid sinus. No i nvolvement of the frontal sinuses. ORBITS: No obvious abnormal findings. IMPRESSION: 1. No evidence of intracranial metastatic disease. 2. Stable multifocal encephalomalacia related to prior previously documented infarcts. No evidence of acute ischemic event. No evidence of intracranial hemorrhage. . 3. Stable appearance of the previously described aneurysms at the level the anterior communicating ar jovan and left MCA bifurcation. DATA REPOSITORY:
--- NOTE | 2024-07-05 | DI.MRI_ITS ---
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 Contrast injected was 15 mL Dotarem. COMPARISON: FINDINGS: CERVICOMEDULLARY JUNCTION: Intact with no evidence of cerebellar tonsillar ectopia. No obvious abnor mality of the odontoid process. No evidence of Chiari 1 malformation. CERVICAL SPINAL CORD: There is no abnormal signal nor enhancement within the cervical spinal cord. N o evidence of syringomyelia. There is no abnormal enhancement in the cervical spinal canal. OSSEOUS:The cervical curvature is relatively maintained. There are no cervical fractures evident. N o significant osseous lesions in the cervical vertebrae. INDIVIDUAL LEVELS: C2-3: Normal disc height and signal. No disc herniation at this level nor central spinal canal steno sis. No abnormal enhancement. There are advanced degenerative changes in the right facet joint and milder degenerative changes in the left facet joint at this level. There is mild foraminal stenosis bilaterally at this level. C3-4: There is mild disc space narrowing and anterior osseous lipping. Posteriorly there are bilater al Luschka joint osteophytes. Mild annular bulging which partly effaces the anterior thecal sac with mild central spinal canal stenosis evident at this level. There is no abnormal enhancement evident at this level. There are degenerative changes in both facet joints at this level, somewhat more so o n the left side. There is severe foraminal stenosis on both sides at this level. C4-5: This level exhibits relatively preserved disc height. There is anterior osseous lipping. Post eriorly there is asymmetric annular bulging, slightly more so right of center. This effaces the ante rior right side of the thecal sac with mild central canal stenosis at this level. Arthrosis is noted bilaterally at this level.There is severe right-sided foraminal stenosis at this level. Milder fora tc stenosis on the left side. C5-6: There is decreased disc height posteriorly. Bilateral Luschka joint osteophytes noted. There is posterior annular bulging, bilateral Luschka wjmct-[id number]-[id number] complexes and there is severe c entral spinal canal stenosis at this level, with central AP measurement of 5 mm. There is, however, no abnormal myelitis signal evident in the cord at this level nor abnormal cord enhancement. There a re mild degenerative changes in the facet joints bilaterally at this level. There is moderate forami nal stenosis on the right side. Mild foraminal stenosis on the left side. C6-7: This level exhibits preserved disc height and signal. There is a small central-right paracentr al disc protrusion which extends posteriorly 1.8 mm and is approximately 9 mm wide, mildly compressin g the right-side of the thecal sac at this level right of center with mild central canal stenosis. T here are mild degenerative changes in the facet joints bilaterally at this level.. Moderate foramina l stenosis on the right side. Mild foraminal stenosis on the left side. C7-T1: No disc herniation nor central canal stenosis. No facet arthropathy.No foraminal stenosis. IMPRESSION: 1. There is multilevel degenerative disc disease and facet arthropathy as described per individual le viviana above. There is severe central spinal canal stenosis at the C5-6 level but without evidence of a bnormal myelitis signal nor enhancement within the cervical spinal cord at this level (nor at other l evels in the cervical spinal cord and canal). 2. Multilevel facet arthropathy and multilevel foraminal stenosis as described individually above, so metimes asymmetric at certain levels. 3. There are bilateral Luschka joint osteophytes at C3-4 and C5-6 levels, these contributing to the a mount of foraminal stenosis. 4. Small central/right paracentral disc protrusion at C6-7 level with mild central canal stenosis at this level and moderate right-sided foraminal stenosis at this level. 5. There is no evidence of primary nor metastatic disease in the cervical spinal canal. Also no sig nificant osseous lesions evident. DATA REPOSITORY:
--- NOTE | 2024-07-06 17:59 | DI.VRAD_ITS ---
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 Contrast material: DOTAREM; Contrast volume: 15 ml; Contrast route: INTRAVENOUS (IV); COMPARISON: MR SPINE^PEDIATRIC 06/19/2019 12:31 PM FINDINGS: Bones/joints: No evidence of enhancing osseous lesion. The vertebral body heights are maintained. No vertebral body edema to suggest fracture. Normal alignment. No significant disc bulge or herniation. No severe spinal canal stenosis. Spinal cord: Normal signal. No cord compression. Soft tissues: There is redemonstration of a left apical lung mass involving the pleura. There is superior extension of the lung lesion to the junction of the neural foraminal and extraforaminal region of the left T1-T2 articulation (image [id number], series [id number]). IMPRESSION: 1. No evidence of osseous lesion. 2. Left apical lung lesion with extension to the junction of the left extraforaminal/neural foraminal region without significant extension into the neural foramen or spinal canal. Dictated and Authenticated by: Huong Serrato MD. Ordering:YUMIKO Mccrary MD
== END 2024-07-05 01:49 ==
LOC: DI 01:29
PROVIDERS: PCP Internal Medicine
DX: M47.12 Other spondylosis with myelopathy, cervical region (principal); C34.12 Malignant neoplasm of upper lobe, left bronchus or lung; C79.89 Secondary malignant neoplasm of other specified sites
CPT/HCPCS: 70553; 72156; 72157

== ENCOUNTER 2024-07-06 01:43 | Outpatient (CLI) | payer MEDICAID, SELFPAY ==
--- NOTE | 2024-07-06 | DI.MRI_ITS ---
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 Contrast injected was 15 mL Dotarem. COMPARISON: FINDINGS: CERVICOMEDULLARY JUNCTION: Intact with no evidence of cerebellar tonsillar ectopia. No obvious abnor mality of the odontoid process. No evidence of Chiari 1 malformation. CERVICAL SPINAL CORD: There is no abnormal signal nor enhancement within the cervical spinal cord. N o evidence of syringomyelia. There is no abnormal enhancement in the cervical spinal canal. OSSEOUS:The cervical curvature is relatively maintained. There are no cervical fractures evident. N o significant osseous lesions in the cervical vertebrae. INDIVIDUAL LEVELS: C2-3: Normal disc height and signal. No disc herniation at this level nor central spinal canal steno sis. No abnormal enhancement. There are advanced degenerative changes in the right facet joint and milder degenerative changes in the left facet joint at this level. There is mild foraminal stenosis bilaterally at this level. C3-4: There is mild disc space narrowing and anterior osseous lipping. Posteriorly there are bilater al Luschka joint osteophytes. Mild annular bulging which partly effaces the anterior thecal sac with mild central spinal canal stenosis evident at this level. There is no abnormal enhancement evident at this level. There are degenerative changes in both facet joints at this level, somewhat more so o n the left side. There is severe foraminal stenosis on both sides at this level. C4-5: This level exhibits relatively preserved disc height. There is anterior osseous lipping. Post eriorly there is asymmetric annular bulging, slightly more so right of center. This effaces the ante rior right side of the thecal sac with mild central canal stenosis at this level. Arthrosis is noted bilaterally at this level.There is severe right-sided foraminal stenosis at this level. Milder fora tc stenosis on the left side. C5-6: There is decreased disc height posteriorly. Bilateral Luschka joint osteophytes noted. There is posterior annular bulging, bilateral Luschka hfipy-jwruhkzfsq-xyqg complexes and there is severe c entral spinal canal stenosis at this level, with central AP measurement of 5 mm. There is, however, no abnormal myelitis signal evident in the cord at this level nor abnormal cord enhancement. There a re mild degenerative changes in the facet joints bilaterally at this level. There is moderate forami nal stenosis on the right side. Mild foraminal stenosis on the left side. C6-7: This level exhibits preserved disc height and signal. There is a small central-right paracentr al disc protrusion which extends posteriorly 1.8 mm and is approximately 9 mm wide, mildly compressin g the right-side of the thecal sac at this level right of center with mild central canal stenosis. T here are mild degenerative changes in the facet joints bilaterally at this level.. Moderate foramina l stenosis on the right side. Mild foraminal stenosis on the left side. C7-T1: No disc herniation nor central canal stenosis. No facet arthropathy.No foraminal stenosis. IMPRESSION: 1. There is multilevel degenerative disc disease and facet arthropathy as described per individual le viviana above. There is severe central spinal canal stenosis at the C5-6 level but without evidence of a bnormal myelitis signal nor enhancement within the cervical spinal cord at this level (nor at other l evels in the cervical spinal cord and canal). 2. Multilevel facet arthropathy and multilevel foraminal stenosis as described individually above, so metimes asymmetric at certain levels. 3. There are bilateral Luschka joint osteophytes at C3-4 and C5-6 levels, these contributing to the a mount of foraminal stenosis. 4. Small central/right paracentral disc protrusion at C6-7 level with mild central canal stenosis at this level and moderate right-sided foraminal stenosis at this level. 5. There is no evidence of primary nor metastatic disease in the cervical spinal canal. Also no sig nificant osseous lesions evident. DATA REPOSITORY:
[2024-07-06] MEDS: Gadoterate meglumine 20 ML SYRINGE 15 ML IVP (12:03)
[2024-07-06] MEDS: Normal Saline Flush 10 ML SYR IVP (12:05)
== END 2024-07-06 02:03 ==
LOC: DI 01:43
PROVIDERS: PCP Internal Medicine
DX: M47.12 Other spondylosis with myelopathy, cervical region (principal); C34.12 Malignant neoplasm of upper lobe, left bronchus or lung; C79.89 Secondary malignant neoplasm of other specified sites
CPT/HCPCS: 70553; 72156; 72157

== ENCOUNTER 2024-07-06 02:03 | Outpatient (RCR) | payer MEDICAID, SELFPAY ==
[2024-07-02] MEDS: Normal Saline Flush 10 ML SYR IVP (07:58)
[2024-07-02 08:21] LABS: Abs Immature Grans 0.03 10^3/uL (0.0-0.06); Absolute Basophil Count 0.05 10^3/uL (0.0-0.2); Absolute Eosinophil Count 0.07 10^3/uL (0.0-0.7); Absolute Lymphocyte Count 1.46 10^3/uL (1.2-3.4); Absolute Monocyte Count 0.62 10^3/uL (0.1-0.8); Absolute Neutrophil Count 4.39 10^3/uL (1.2-6.7); Basophils % 0.8 %; Eosinophils % 1.1 %; HCT 45.9 % (40.0-50.0); HGB 14.9 g/dL (13.5-17.5); Immature Grans % 0.5 %; Lymphocytes % 22.1 %; MCH 30.6 pg (27.0-33.0); MCHC 32.5 % (32.0-36.0); MCV 94 fL (80-95); Monocytes % 9.4 %; Neutrophils % 66.1 %; Platelet Count 148 10^3/uL (130-400); RBC 4.87 10^6/uL (4.36-5.78); RDW 15.1 % (11.8-14.1); RDW-SD 52.3 fL; WBC 6.62 10^3/uL (4.4-10.8)
[2024-07-02 08:45] LABS: ALT 16 U/L (16-63); AST 15 U/L (15-37); Albumin 3.4 g/dL (3.4-5.0); Alkaline Phosphatase 113 U/L (46-116); BUN 16 mg/dL (7-18); Bilirubin, Total 0.38 mg/dL (0.2-1.0); Calcium 8.9 mg/dL (8.5-10.1); Chloride 105 mmol/L (98-107); Estimated GFR 85.63 (mL/min/1.73m2); FREE T4 0.99 ng/dL (0.76-1.46); Glucose 96 mg/dL (74-106); LDH 121 U/L (85-227); Potassium 3.6 mmol/L (3.5-5.1); Sodium 142 mmol/L (136-145); TSH 2.85 uIU/mL (0.36-3.74); Total Protein 6.8 g/dL (6.4-8.2)
[2024-07-06] MEDS: Normal Saline Flush 10 ML SYR IVP (11:38)
== END 2024-07-16 23:59 | disposition home or self-care (01) ==
LOC: INF 02:03
PROVIDERS: PCP Internal Medicine; Visit Provider Nurse Practitioner
DX: C34.12 Malignant neoplasm of upper lobe, left bronchus or lung (principal); Z79.899 Other long term (current) drug therapy
CPT/HCPCS: 36591; 80053; 96523; 83615; 84439; 84443; 85025

== ENCOUNTER 2024-07-23 01:04 | Outpatient (RCR) | payer MEDICAID, SELFPAY ==
[2024-07-23] MEDS: Normal Saline Flush 10 ML SYR IVP (07:48)
[2024-07-23 08:06] LABS: HGB 14.5 g/dL (13.5-17.5); MCV 93 fL (80-95)
[2024-07-23 08:07] LABS: Abs Immature Grans 0.02 10^3/uL (0.0-0.06); Absolute Basophil Count 0.05 10^3/uL (0.0-0.2); Absolute Eosinophil Count 0.15 10^3/uL (0.0-0.7); Absolute Lymphocyte Count 0.83 10^3/uL (1.2-3.4); Absolute Neutrophil Count 3.37 10^3/uL (1.2-6.7); Eosinophils % 3.1 %; HCT 43.7 % (40.0-50.0); Immature Grans % 0.4 %; Lymphocytes % 17.2 %; MCH 30.9 pg (27.0-33.0); MCHC 33.2 % (32.0-36.0); MPV 10.7 fL (8.0-11.0); Monocytes % 8.3 %; Platelet Count 137 10^3/uL (130-400); RDW 15.4 % (11.8-14.1); RDW-SD 52.9 fL; WBC 4.82 10^3/uL (4.4-10.8)
[2024-07-23 08:33] LABS: ALT 22 U/L (16-63); AST 19 U/L (15-37); Albumin 3.3 g/dL (3.4-5.0); Alkaline Phosphatase 119 U/L (46-116); Anion Gap 4.9 mmol/L (3-11); BUN 16 mg/dL (7-18); Bilirubin, Total 0.56 mg/dL (0.2-1.0); CO2 30.1 mmol/L (21.0-32.0); Calcium 8.7 mg/dL (8.5-10.1); Chloride 104 mmol/L (98-107); Estimated GFR 85.63 (mL/min/1.73m2); FREE T4 1.06 ng/dL (0.76-1.46); Glucose 87 mg/dL (74-106); LDH 120 U/L (85-227); Potassium 3.5 mmol/L (3.5-5.1); Sodium 139 mmol/L (136-145); TSH 2.72 uIU/mL (0.36-3.74); Total Protein 6.7 g/dL (6.4-8.2)
== END 2024-08-13 23:59 | disposition home or self-care (01) ==
LOC: INF 01:04
PROVIDERS: PCP Internal Medicine; Visit Provider Nurse Practitioner
DX: C34.12 Malignant neoplasm of upper lobe, left bronchus or lung (principal); Z79.899 Other long term (current) drug therapy
CPT/HCPCS: 36591; 80053; 83615; 84439; 84443; 85025

== ENCOUNTER 2024-09-03 02:55 | Outpatient (RCR) | payer MEDICAID, SELFPAY ==
[2024-09-03] MEDS: Normal Saline Flush 10 ML SYR IVP (07:36)
[2024-09-03 07:39] LABS: Abs Immature Grans 0.01 10^3/uL (0.0-0.06); Absolute Basophil Count 0.07 10^3/uL (0.0-0.2); Absolute Lymphocyte Count 1.02 10^3/uL (1.2-3.4); Absolute Monocyte Count 0.44 10^3/uL (0.1-0.8); Absolute Neutrophil Count 3.05 10^3/uL (1.2-6.7); Basophils % 1.5 %; Eosinophils % 2.1 %; HCT 41.7 % (40.0-50.0); HGB 14.1 g/dL (13.5-17.5); Immature Grans % 0.2 %; Lymphocytes % 21.7 %; MCH 32.3 pg (27.0-33.0); MCHC 33.8 % (32.0-36.0); MCV 95 fL (80-95); MPV 10.9 fL (8.0-11.0); Monocytes % 9.4 %; Neutrophils % 65.1 %; Platelet Count 141 10^3/uL (130-400); RBC 4.37 10^6/uL (4.36-5.78); RDW-SD 57.3 fL; WBC 4.69 10^3/uL (4.4-10.8)
[2024-09-03 08:22] LABS: ALT 26 U/L (16-63); AST 26 U/L (15-37); Albumin 3.3 g/dL (3.4-5.0); Alkaline Phosphatase 118 U/L (46-116); Anion Gap 3.1 mmol/L (3-11); BUN 20 mg/dL (7-18); Bilirubin, Total 0.5 mg/dL (0.2-1.0); CO2 27.9 mmol/L (21.0-32.0); CREATININE 1.2 mg/dL (0.70-1.30); Calcium 8.5 mg/dL (8.5-10.1); Chloride 107 mmol/L (98-107); Glucose 84 mg/dL (74-106); LDH 143 U/L (85-227); Potassium 4.2 mmol/L (3.5-5.1); Sodium 138 mmol/L (136-145); TSH 2.77 uIU/mL (0.36-3.74); Total Protein 6.5 g/dL (6.4-8.2)
[2024-09-03 17:46] LABS: T4, Free 1.1 ng/dL (0.8-2.2)
== END 2024-09-13 23:59 | disposition home or self-care (01) ==
LOC: INF 02:55
PROVIDERS: PCP Internal Medicine; Visit Provider Nurse Practitioner
DX: C79.89 Secondary malignant neoplasm of other specified sites (principal); C34.12 Malignant neoplasm of upper lobe, left bronchus or lung; Z79.899 Other long term (current) drug therapy
CPT/HCPCS: 36591; 80053; 83615; 84436; 84439; 84443; 85025

== ENCOUNTER 2024-09-24 00:35 | Outpatient (RCR) | payer MEDICAID, SELFPAY ==
[2024-09-24 07:52] LABS: Abs Immature Grans 0.02 10^3/uL (0.0-0.06); Absolute Basophil Count 0.07 10^3/uL (0.0-0.2); Absolute Eosinophil Count 0.08 10^3/uL (0.0-0.7); Absolute Lymphocyte Count 0.93 10^3/uL (1.2-3.4); Absolute Neutrophil Count 3.81 10^3/uL (1.2-6.7); Basophils % 1.3 %; Eosinophils % 1.5 %; HCT 45.2 % (40.0-50.0); HGB 14.9 g/dL (13.5-17.5); Immature Grans % 0.4 %; Lymphocytes % 17.9 %; MCH 32.1 pg (27.0-33.0); MCV 97 fL (80-95); MPV 11.1 fL (8.0-11.0); Monocytes % 5.8 %; Neutrophils % 73.1 %; Platelet Count 150 10^3/uL (130-400); RBC 4.64 10^6/uL (4.36-5.78); RDW 13.9 % (11.8-14.1); RDW-SD 50.9 fL; WBC 5.21 10^3/uL (4.4-10.8)
[2024-09-24] MEDS: Normal Saline Flush 10 ML SYR IVP (07:56)
[2024-09-24 08:14] LABS: ALT 21 U/L (16-63); AST 17 U/L (15-37); Albumin 3.6 g/dL (3.4-5.0); Alkaline Phosphatase 128 U/L (46-116); Anion Gap 4.7 mmol/L (3-11); BUN 23 mg/dL (7-18); Bilirubin, Total 0.5 mg/dL (0.2-1.0); CO2 27.3 mmol/L (21.0-32.0); CREATININE 1.1 mg/dL (0.70-1.30); Calcium 9.4 mg/dL (8.5-10.1); Chloride 107 mmol/L (98-107); Estimated GFR 76.37 (mL/min/1.73m2); FREE T4 0.92 ng/dL (0.76-1.46); Glucose 102 mg/dL (74-106); LDH 112 U/L (85-227); Potassium 4.5 mmol/L (3.5-5.1); Sodium 139 mmol/L (136-145); TSH 2.92 uIU/mL (0.36-3.74)
== END 2024-10-13 23:59 | disposition home or self-care (01) ==
LOC: INF 00:35
PROVIDERS: PCP Internal Medicine
DX: C79.89 Secondary malignant neoplasm of other specified sites (principal); Z79.899 Other long term (current) drug therapy
CPT/HCPCS: 36591; 80053; 83615; 84439; 84443; 85025

== ENCOUNTER 2024-10-15 02:47 | Outpatient (RCR) | payer MEDICAID, SELFPAY ==
[2024-10-15 07:57] LABS: Abs Immature Grans 0.01 10^3/uL (0.0-0.06); Absolute Basophil Count 0.05 10^3/uL (0.0-0.2); Absolute Eosinophil Count 0.14 10^3/uL (0.0-0.7); Absolute Lymphocyte Count 0.94 10^3/uL (1.2-3.4); Absolute Monocyte Count 0.44 10^3/uL (0.1-0.8); Absolute Neutrophil Count 3.25 10^3/uL (1.2-6.7); Eosinophils % 2.9 %; HCT 41.1 % (40.0-50.0); Immature Grans % 0.2 %; Lymphocytes % 19.5 %; MCH 32.1 pg (27.0-33.0); MCHC 34.1 % (32.0-36.0); MCV 94 fL (80-95); Monocytes % 9.1 %; Neutrophils % 67.3 %; Platelet Count 144 10^3/uL (130-400); RBC 4.36 10^6/uL (4.36-5.78); RDW 13.5 % (11.8-14.1); RDW-SD 47.8 fL; WBC 4.83 10^3/uL (4.4-10.8)
[2024-10-15] MEDS: Normal Saline Flush 10 ML SYR IVP (08:19)
[2024-10-15 08:54] LABS: ALT 19 U/L (16-63); AST 20 U/L (15-37); Albumin 3.4 g/dL (3.4-5.0); Alkaline Phosphatase 118 U/L (46-116); Anion Gap 10.1 mmol/L (3-11); BUN 17 mg/dL (7-18); Bilirubin, Total 0.6 mg/dL (0.2-1.0); CO2 26.9 mmol/L (21.0-32.0); Calcium 8.7 mg/dL (8.5-10.1); Chloride 105 mmol/L (98-107); Estimated GFR 85.63 (mL/min/1.73m2); Glucose 97 mg/dL (74-106); Potassium 3.3 mmol/L (3.5-5.1); Sodium 142 mmol/L (136-145); TSH 3.73 uIU/mL (0.36-3.74); Total Protein 6.9 g/dL (6.4-8.2)
[2024-10-15 09:15] LABS: FREE T4 0.82 ng/dL (0.76-1.46); LDH 144 U/L (85-227)
== END 2024-11-13 23:59 | disposition home or self-care (01) ==
LOC: INF 02:47
PROVIDERS: PCP Internal Medicine
DX: C79.89 Secondary malignant neoplasm of other specified sites (principal); Z79.899 Other long term (current) drug therapy; C34.12 Malignant neoplasm of upper lobe, left bronchus or lung; Z45.2 Encounter for adjustment and management of vascular access device
CPT/HCPCS: 36591; 80053; 83615; 84439; 84443; 85025

== ENCOUNTER 2024-11-26 07:42 | Outpatient (RCR) | payer MEDICAID, SELFPAY ==
[2024-11-26] MEDS: Normal Saline Flush 10 ML SYR IVP (07:40)
[2024-11-26 08:35] LABS: Abs Immature Grans 0.03 10^3/uL (0.0-0.06); Absolute Basophil Count 0.06 10^3/uL (0.0-0.2); Absolute Eosinophil Count 0.11 10^3/uL (0.0-0.7); Absolute Lymphocyte Count 0.88 10^3/uL (1.2-3.4); Absolute Monocyte Count 0.36 10^3/uL (0.1-0.8); Absolute Neutrophil Count 3.07 10^3/uL (1.2-6.7); Basophils % 1.3 %; Eosinophils % 2.4 %; HCT 42.7 % (40.0-50.0); HGB 14.1 g/dL (13.5-17.5); Immature Grans % 0.7 %; Lymphocytes % 19.5 %; MCH 31.7 pg (27.0-33.0); MCV 96 fL (80-95); MPV 10.8 fL (8.0-11.0); Neutrophils % 68.1 %; Platelet Count 153 10^3/uL (130-400); RBC 4.45 10^6/uL (4.36-5.78); RDW 14.4 % (11.8-14.1); RDW-SD 50.6 fL; WBC 4.51 10^3/uL (4.4-10.8)
[2024-11-26 08:55] LABS: ALT 23 U/L (16-63); AST 20 U/L (15-37); Albumin 3.5 g/dL (3.4-5.0); Alkaline Phosphatase 119 U/L (46-116); Anion Gap 8.8 mmol/L (3-11); BUN 20 mg/dL (7-18); Bilirubin, Total 0.4 mg/dL (0.2-1.0); CO2 28.2 mmol/L (21.0-32.0); CREATININE 1.1 mg/dL (0.70-1.30); Calcium 8.5 mg/dL (8.5-10.1); Chloride 105 mmol/L (98-107); Estimated GFR 76.37 (mL/min/1.73m2); FREE T4 0.93 ng/dL (0.76-1.46); Glucose 98 mg/dL (74-106); LDH 141 U/L (85-227); Potassium 3.9 mmol/L (3.5-5.1); Sodium 142 mmol/L (136-145); TSH 2.35 uIU/mL (0.36-3.74); Total Protein 6.8 g/dL (6.4-8.2)
== END 2024-12-13 23:59 | disposition home or self-care (01) ==
LOC: INF 07:42
PROVIDERS: PCP Internal Medicine; Visit Provider Nurse Practitioner Adult Health
DX: Z79.899 Other long term (current) drug therapy (principal); C79.89 Secondary malignant neoplasm of other specified sites; Z45.2 Encounter for adjustment and management of vascular access device
CPT/HCPCS: 36591; 80053; 83615; 84439; 84443; 85025

== ENCOUNTER 2025-01-07 00:34 | Outpatient (RCR) | payer MEDICAID, SELFPAY ==
[2025-01-07 08:08] LABS: Abs Immature Grans 0.02 10^3/uL (0.0-0.06); HCT 44.0 % (40.0-50.0); HGB 14.6 g/dL (13.5-17.5); Immature Grans % 0.4 %; MCH 31.7 pg (27.0-33.0); MCHC 33.2 % (32.0-36.0); MCV 96 fL (80-95); MPV 10.3 fL (8.0-11.0); Platelet Count 157 10^3/uL (130-400); RBC 4.60 10^6/uL (4.36-5.78); RDW 14.3 % (11.8-14.1); RDW-SD 50.0 fL; WBC 5.05 10^3/uL (4.4-10.8)
[2025-01-07 08:32] LABS: ALT 20 U/L (16-63); AST 18 U/L (15-37); Albumin 3.6 g/dL (3.4-5.0); Alkaline Phosphatase 124 U/L (46-116); Anion Gap 7.0 mmol/L (3-11); BUN 23 mg/dL (7-18); Bilirubin, Total 0.4 mg/dL (0.2-1.0); CO2 28.0 mmol/L (21.0-32.0); Calcium 8.8 mg/dL (8.5-10.1); Chloride 106 mmol/L (98-107); Estimated GFR 76.37 (mL/min/1.73m2); Glucose 105 mg/dL (74-106); Potassium 4.1 mmol/L (3.5-5.1); Sodium 141 mmol/L (136-145); TSH 2.87 uIU/mL (0.36-3.74); Total Protein 6.9 g/dL (6.4-8.2)
[2025-01-07] MEDS: Normal Saline Flush 10 ML SYR IVP (08:33)
== END 2025-01-13 23:59 | disposition home or self-care (01) ==
LOC: INF 00:34
PROVIDERS: PCP Internal Medicine; Visit Provider Nurse Practitioner Adult Health
DX: C79.89 Secondary malignant neoplasm of other specified sites (principal); Z79.899 Other long term (current) drug therapy
CPT/HCPCS: 36591; 80053; 84439; 84443; 85025

== ENCOUNTER 2025-03-11 00:19 | Outpatient (RCR) | payer MEDICAID, SELFPAY ==
[2025-02-18 09:11] LABS: Abs Immature Grans 0.01 10^3/uL (0.0-0.06); HCT 41.9 % (40.0-50.0); HGB 13.8 g/dL (13.5-17.5); Immature Grans % 0.2 %; MCH 31.2 pg (27.0-33.0); MCHC 32.9 % (32.0-36.0); MCV 95 fL (80-95); MPV 11.4 fL (8.0-11.0); Platelet Count 144 10^3/uL (130-400); RBC 4.43 10^6/uL (4.36-5.78); RDW 13.4 % (11.8-14.1); RDW-SD 47.3 fL; WBC 4.77 10^3/uL (4.4-10.8)
[2025-02-18 09:38] LABS: ALT 17 U/L (16-63); AST 18 U/L (15-37); Albumin 3.5 g/dL (3.4-5.0); Alkaline Phosphatase 123 U/L (46-116); Anion Gap 8.1 mmol/L (3-11); BUN 13 mg/dL (7-18); Bilirubin, Total 0.6 mg/dL (0.2-1.0); CO2 28.9 mmol/L (21.0-32.0); Calcium 8.6 mg/dL (8.5-10.1); Chloride 104 mmol/L (98-107); Glucose 90 mg/dL (74-106); LDH 152 U/L (85-227); Potassium 3.6 mmol/L (3.5-5.1); Sodium 141 mmol/L (136-145); TSH 2.46 uIU/mL (0.36-3.74); Total Protein 6.9 g/dL (6.4-8.2)
[2025-03-11] MEDS: Normal Saline Flush 10 ML SYR IVP (07:22)
[2025-03-11 07:34] LABS: Abs Immature Grans 0.01 10^3/uL (0.0-0.06); HCT 41.8 % (40.0-50.0); HGB 13.9 g/dL (13.5-17.5); Immature Grans % 0.2 %; MCH 31.7 pg (27.0-33.0); MCHC 33.3 % (32.0-36.0); MCV 95 fL (80-95); MPV 11.3 fL (8.0-11.0); Platelet Count 138 10^3/uL (130-400); RBC 4.39 10^6/uL (4.36-5.78); RDW 13.8 % (11.8-14.1); RDW-SD 48.7 fL; WBC 4.42 10^3/uL (4.4-10.8)
[2025-03-11 07:57] LABS: ALT 18 U/L (16-63); AST 15 U/L (15-37); Albumin 3.4 g/dL (3.4-5.0); Alkaline Phosphatase 114 U/L (46-116); Anion Gap 7.0 mmol/L (3-11); BUN 16 mg/dL (7-18); Bilirubin, Total 0.5 mg/dL (0.2-1.0); CO2 31.0 mmol/L (21.0-32.0); Calcium 8.4 mg/dL (8.5-10.1); Chloride 104 mmol/L (98-107); Glucose 117 mg/dL (74-106); LDH 134 U/L (85-227); Potassium 3.6 mmol/L (3.5-5.1); Sodium 142 mmol/L (136-145); TSH 3.30 uIU/mL (0.36-3.74); Total Protein 6.6 g/dL (6.4-8.2)
== END 2025-03-15 23:59 | disposition home or self-care (01) ==
LOC: INF 00:19
PROVIDERS: PCP Internal Medicine; Visit Provider Nurse Practitioner Adult Health
DX: Z79.899 Other long term (current) drug therapy (principal); C79.89 Secondary malignant neoplasm of other specified sites; Z45.2 Encounter for adjustment and management of vascular access device
CPT/HCPCS: 36415; 36591; 80053; 84153; 83615; 84439; 84443; 85025

== ENCOUNTER 2025-04-01 00:09 | Outpatient (RCR) | payer MEDICAID, SELFPAY ==
[2025-04-01] MEDS: Normal Saline Flush 10 ML SYR IVP (07:34)
[2025-04-01 08:01] LABS: Abs Immature Grans 0.02 10^3/uL (0.0-0.06); HCT 43.4 % (40.0-50.0); HGB 14.3 g/dL (13.5-17.5); Immature Grans % 0.4 %; MCH 31.2 pg (27.0-33.0); MCHC 32.9 % (32.0-36.0); MCV 95 fL (80-95); MPV 11.4 fL (8.0-11.0); Platelet Count 143 10^3/uL (130-400); RBC 4.58 10^6/uL (4.36-5.78); RDW 13.4 % (11.8-14.1); RDW-SD 47.0 fL; WBC 4.63 10^3/uL (4.4-10.8)
[2025-04-01 08:28] LABS: ALT 19 U/L (16-63); AST 19 U/L (15-37); Albumin 3.5 g/dL (3.4-5.0); Alkaline Phosphatase 126 U/L (46-116); Anion Gap 6.9 mmol/L (3-11); BUN 17 mg/dL (7-18); Bilirubin, Total 0.5 mg/dL (0.2-1.0); CO2 30.1 mmol/L (21.0-32.0); Calcium 8.5 mg/dL (8.5-10.1); Chloride 102 mmol/L (98-107); Glucose 101 mg/dL (74-106); LDH 137 U/L (85-227); Potassium 4.0 mmol/L (3.5-5.1); Sodium 139 mmol/L (136-145); TSH 3.84 uIU/mL (0.36-3.74); Total Protein 6.6 g/dL (6.4-8.2)
== END 2025-04-15 23:59 | disposition home or self-care (01) ==
LOC: INF 00:09
PROVIDERS: PCP Internal Medicine; Visit Provider Nurse Practitioner Adult Health
DX: Z45.2 Encounter for adjustment and management of vascular access device (principal); C79.89 Secondary malignant neoplasm of other specified sites; Z79.899 Other long term (current) drug therapy
CPT/HCPCS: 36591; 80053; 83615; 84439; 84443; 85025

== ENCOUNTER 2025-05-13 02:02 | Outpatient (RCR) | payer MEDICAID, SELFPAY ==
[2025-04-22 07:56] LABS: Abs Immature Grans 0.01 10^3/uL (0.0-0.06); HCT 42.7 % (40.0-50.0); HGB 14.3 g/dL (13.5-17.5); Immature Grans % 0.2 %; MCH 31.6 pg (27.0-33.0); MCHC 33.5 % (32.0-36.0); MCV 94 fL (80-95); MPV 10.7 fL (8.0-11.0); Platelet Count 143 10^3/uL (130-400); RBC 4.53 10^6/uL (4.36-5.78); RDW 12.9 % (11.8-14.1); RDW-SD 44.7 fL; WBC 4.45 10^3/uL (4.4-10.8)
[2025-04-22] MEDS: Normal Saline Flush 10 ML SYR IVP (08:05)
[2025-04-22 08:31] LABS: ALT 19 U/L (16-63); AST 19 U/L (15-37); Albumin 3.3 g/dL (3.4-5.0); Alkaline Phosphatase 123 U/L (46-116); Anion Gap 7.9 mmol/L (3-11); BUN 12 mg/dL (7-18); Bilirubin, Total 0.5 mg/dL (0.2-1.0); CO2 27.1 mmol/L (21.0-32.0); Calcium 8.4 mg/dL (8.5-10.1); Chloride 104 mmol/L (98-107); Estimated GFR 68.80 (mL/min/1.73m2); Glucose 92 mg/dL (74-106); LDH 125 U/L (85-227); Potassium 3.6 mmol/L (3.5-5.1); Sodium 139 mmol/L (136-145); TSH 4.00 uIU/mL (0.36-3.74); Total Protein 6.7 g/dL (6.4-8.2)
[2025-05-13 07:44] LABS: Abs Immature Grans 0.02 10^3/uL (0.0-0.06); HCT 44.0 % (40.0-50.0); HGB 14.5 g/dL (13.5-17.5); Immature Grans % 0.4 %; MCH 31.3 pg (27.0-33.0); MCHC 33.0 % (32.0-36.0); MCV 95 fL (80-95); MPV 10.4 fL (8.0-11.0); Platelet Count 142 10^3/uL (130-400); RBC 4.64 10^6/uL (4.36-5.78); RDW 13.4 % (11.8-14.1); RDW-SD 47.1 fL; WBC 4.49 10^3/uL (4.4-10.8)
[2025-05-13] MEDS: Normal Saline Flush 10 ML SYR IVP (07:59)
[2025-05-13 08:01] LABS: ALT 10 U/L (10-49); AST 17 U/L (<34); Albumin 4.0 g/dL (3.2-5.0); Alkaline Phosphatase 111 U/L (46-116); Anion Gap 6.1 mmol/L (3-11); BUN 20 mg/dL (9-23); Bilirubin, Total 0.40 mg/dL (0.2-1.2); CO2 24.9 mmol/L (20.0-31.0); Calcium 8.4 mg/dL (8.3-10.6); Chloride 110 mmol/L (98-107); Glucose 88 mg/dL (74-106); LDH 122 U/L (120-246); Potassium 4.0 mmol/L (3.5-5.1); Sodium 141 mmol/L (136-145); Total Protein 6.6 g/dL (5.7-8.2)
[2025-05-13 08:04] LABS: TSH 2.55 uIU/mL (0.55-4.78)
== END 2025-05-15 23:59 | disposition home or self-care (01) ==
LOC: INF 02:02
PROVIDERS: PCP Internal Medicine; Visit Provider Nurse Practitioner Adult Health
DX: Z79.899 Other long term (current) drug therapy (principal); C79.89 Secondary malignant neoplasm of other specified sites; Z45.2 Encounter for adjustment and management of vascular access device
CPT/HCPCS: 36591; 80053; 83615; 84439; 84443; 85025